=== PATIENT | female | born 1950 | race American Indian/Alaskan Native ===

== ENCOUNTER 2019-01-17 11:38 | Inpatient (IN) | payer MEDICARE ==
--- NOTE | 2019-01-17 11:48 | Emergency Department Report ---
Blank Doc - Documentation Documentation: 68-year-old female that presents with heart racing. Was sent by machine ii coremaker. This initial assessment/diagnostic orders/clinical plan/treatment(s) is/are subject to change based on patient's health status, clinical progression and re- assessment by fellow clinical providers in the ED. Further treatment and workup at subsequent clinical providers discretion. Patient/guardians urged not to elope from the ED as their condition may be serious if not clinically assessed and managed. Initial orders include: 1- Patient sent to [facility] for further evaluation and treatment 2- EKG 4- CXR 4- labs
--- NOTE | 2019-01-17 12:36 | Emergency Department Report ---
ED General Adult HPI - General Chief complaint: Arrhythmia/Palpitations Stated complaint: HEART RACING/DOC SENT Time Seen by Provider: 01/17/19 11:47 Source: patient Mode of arrival: Ambulatory Limitations: No Limitations - History of Present Illness Initial comments: 68-year-old female with history of hypertension, chronic kidney disease, diabetes, CVA presents to ED for elevated heart rate. Patient states she had a follow-up appointment with her agricultural research technician for worsening renal function, and was noted to have tachycardia when vital signs were done. Patient denies palpitations or sensation in her heart is racing. She denies any dizziness or lightheadedness, chest pain, shortness of breath. Denies any recent illness, fever, vomiting, diarrhea. 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 denies: chest pain, fever/chills, nausea/vomiting, shortness of breath, syncope, weakness - Related Data Home Medications Medication Instructions Recorded Confirmed Last Taken Aspirin EC 325 mg PO QDAY 11/08/14 02/16/16 11/12/14 Simvastatin (Nf) [Zocor TAB] 20 mg PO QHS 11/08/14 02/16/16 11/14/14 amLODIPine [Norvasc] 10 mg PO DAILY 11/08/14 02/16/16 11/15/14 metFORMIN XR [Glucophage XR] 500 mg PO BID 11/08/14 02/16/16 11/14/14 Furosemide 20 mg PO QDAY 02/16/16 02/16/16 Unknown Previous Rx's Medication Instructions Recorded Last Taken Type Carvedilol [Coreg] 25 mg PO BID #60 tablet 07/15/13 11/15/14 Rx Pantoprazole [Protonix TAB] 40 mg PO DAILY #30 tablet 07/15/13 11/14/14 Rx Furosemide [Lasix] 20 mg PO QDAY #30 tablet 02/16/16 Unknown Rx Potassium Chloride [K-Dur] 10 meq PO QDAY #30 tablet 02/16/16 Unknown Rx Allergies Allergy/AdvReac Type Severity Reaction Status Date / Time No Known Allergies Allergy Verified 05/23/13 22:50 ED Review of Systems ROS: Stated complaint: HEART RACING/DOC SENT Other details as noted in HPI Comment: All other systems reviewed and negative Constitutional: denies: chills, fever Respiratory: denies: shortness of breath Cardiovascular: denies: chest pain, palpitations Gastrointestinal: denies: abdominal pain, vomiting, diarrhea ED Past Medical Hx - Past Medical History Previous Medical History?: Yes Hx Hypertension: Yes (UNKNOWN) Hx CVA: Yes (2013) Hx Congestive Heart Failure: No Hx Diabetes: Yes Hx GERD: Yes Hx Asthma: No Hx COPD: No Hx HIV: No - Surgical History Past Surgical History?: Yes Additional Surgical History: eye surgery and partial hysterectomy - Social History Smoking Status: Never Smoker Substance Use Type: None - Medications Home Medications: Home Medications Medication Instructions Recorded Confirmed Last Taken Type Carvedilol [Coreg] 25 mg PO BID #60 tablet 07/15/13 02/16/16 11/15/14 Rx Pantoprazole [Protonix TAB] 40 mg PO DAILY #30 tablet 07/15/13 02/16/16 11/14/14 Rx Aspirin EC 325 mg PO QDAY 11/08/14 02/16/16 11/12/14 History Simvastatin (Nf) [Zocor TAB] 20 mg PO QHS 11/08/14 02/16/16 11/14/14 History amLODIPine [Norvasc] 10 mg PO DAILY 11/08/14 02/16/16 11/15/14 History metFORMIN XR [Glucophage XR] 500 mg PO BID 11/08/14 02/16/16 11/14/14 History Furosemide 20 mg PO QDAY 02/16/16 02/16/16 Unknown History Furosemide [Lasix] 20 mg PO QDAY #30 tablet 02/16/16 Unknown Rx Potassium Chloride [K-Dur] 10 meq PO QDAY #30 tablet 02/16/16 Unknown Rx ED Physical Exam - General Limitations: No Limitations General appearance: alert, in no apparent distress - Head Head exam: Present: atraumatic, normocephalic - Eye Eye exam: Present: normal appearance, PERRL, EOMI - ENT ENT exam: Present: mucous membranes moist - Neck Neck exam: Present: normal inspection - Respiratory Respiratory exam: Present: normal lung sounds bilaterally. Absent: respiratory distress - Cardiovascular Cardiovascular Exam: Present: normal rhythm, tachycardia - GI/Abdominal GI/Abdominal exam: Present: soft. Absent: distended, tenderness - Extremities Exam Extremities exam: Present: normal inspection - Neurological Exam Neurological exam: Present: alert, oriented X3 - Psychiatric Psychiatric exam: Present: normal affect, normal mood - Skin Skin exam: Present: warm, dry, intact, normal color ED Course Vital Signs 01/17/19 01/17/19 11:42 12:46 Temperature 98.3 F Pulse Rate 122 H 103 H Respiratory 18 15 Rate Blood Pressure 178/102 146/83 O2 Sat by Pulse 95 97 Oximetry - Reevaluation(s) Reevaluation #1: 01/17/19 13:50 HR currently 98. ED Medical Decision Making - Lab Data Result diagrams: 01/17/19 12:48 01/17/19 12:48 - EKG Data -: EKG Interpreted by Me EKG shows normal: sinus rhythm, axis, intervals, QRS complexes, ST-T waves Rate: tachycardia (rate 113) - EKG Data Interpretation: no acute changes - Medical Decision Making - sent to ER for tachycardia from agricultural research technician's office - EKG shows sinus tachycardia, no ST changes - HR currently improved without intervention - potassium of 5.6; treatment given for hyperkalemia - spoke w/ Dr Fernandez, aware of pt, will see in consult - will admit to hospitalist - Differential Diagnosis hyperthyroidism, arrythmia, Critical Care Time: Yes Critical care time in (mins) excluding proc time.: 35 Critical care attestation.: If time is entered above; I have spent that time in minutes in the direct care o f this critically ill patient, excluding procedure time. Critical Care Time: 35 minutes ED Disposition Clinical Impression: Hyperkalemia, Acute on chronic renal failure Disposition: -09 OP ADMIT IP TO THIS HOSP Is pt being admited?: Yes Condition: Stable Referrals: PRIMARY CARE, [Primary Care Provider] - 3-5 Days Time of Disposition: 14:31
--- NOTE | 2019-01-17 12:39 | XRay Report ---
CHEST PA AND LATERAL VIEWS INDICATION: Chest Pain. COMPARISON: None. FINDINGS: Support devices: None. Heart: Within normal limits. Lungs/Pleura: No acute pulmonary or pleural findings. There is mild elevation of the right diaphragm. IMPRESSION: 1. No significant abnormality. Signer Name: Sidney Sumner MD Signed: 01/17/2019 12:35 PM Workstation Name: [id number]
[2019-01-17 13:32] LABS: INR 0.99 (0.87-1.13)
[2019-01-17 13:33] LABS: Partial Thromboplastin Time 33.3 Sec. (24.2-36.6)
[2019-01-17 13:43] LABS: Basophils # (Auto) 0.1 K/mm3 (0.0-0.1); Basophils % (Auto) 0.5 % (0.0-1.8); Eosinophils # (Auto) 0.1 K/mm3 (0.0-0.4); Eosinophils % (Auto) 1.3 % (0.0-4.3); Hematocrit 32.7 % (30.3-42.9); Hemoglobin 10.9 gm/dl (10.1-14.3); Lymphocytes # (Auto) 2.2 K/mm3 (1.2-5.4); Mean Corpuscular HGB Conc 33 % (30-34); Mean Corpuscular Volume 91 fl (79-97); Monocytes # (Auto) 0.8 K/mm3 (0.0-0.8); Platelet Count 320 K/mm3 (140-440); Red Blood Count 3.62 M/mm3 (3.65-5.03); Red Cell Distribution Width 15.8 % (13.2-15.2)
[2019-01-17 14:05] LABS: Albumin 4.1 g/dL (3.9-5); Calcium 9.5 mg/dL (8.4-10.2)
[2019-01-17 14:14] LABS: Free T4 (Free Thyroxine) 1.17 ng/dL (0.76-1.46)
[2019-01-17] MEDS ORDERED: D50W (25GM) Syringe IV ONE (14:28)
[2019-01-17] MEDS ORDERED: HumuLIN R IV ONE (14:28)
[2019-01-17] MEDS ORDERED: PROVENTIL IH ONE (14:28)
[2019-01-17] MEDS ORDERED: CALCIUM CHLORIDE IV ONE (14:29)
--- NOTE | 2019-01-17 14:46 | History and Physical Report ---
History of Present Illness Chief complaint: Im feeling sick, and a little tired History of present illness: 68 YO Female with HTN, DM, CVA, Obesity, HLD, GERD presents to ED for evaluation. Pt states that she has been "feeling sick" over the past 3 days. Pt reports generalized weakness, fatigue and feeling like her heart is racing. Pt was seen by her endodontic assistant and found to have worsening renal function. Pt instructed to seek further care at [facility]. Pt transported to [facility] via private vehicle. Pt seen and evaluated in ED and found to have ADRIEN, Acidosis, and hyperkalemia. Pt admitted to medical floor. Nephrology consulted in ED. PT denies fever, chills, CP,Palpitations, NVD, trauma, dizziness or lightheadedness, shortness of breath, or recent ill contacts. Prior admission on 07/07/13 reviewed. All listed medication reconciled at time of admission. Past History Past Medical History: other (see hpi) Past Surgical History: hysterectomy, Other (Eye surgery) Social history: . denies: smoking, alcohol abuse, prescription drug abuse Family history: diabetes, hypertension Medications and Allergies Allergies Allergy/AdvReac Type Severity Reaction Status Date / Time No Known Allergies Allergy Verified 05/23/13 22:50 Home Medications Medication Instructions Recorded Confirmed Last Taken Type Carvedilol [Coreg] 25 mg PO BID #60 tablet 07/15/13 01/17/19 01/16/19 Rx Pantoprazole [Protonix TAB] 40 mg PO DAILY #30 tablet 07/15/13 01/17/19 01/16/19 Rx Aspirin EC 325 mg PO QDAY 11/08/14 01/17/19 01/16/19 History Simvastatin (Nf) [Zocor TAB] 20 mg PO QHS 11/08/14 01/17/19 01/16/19 History amLODIPine [Norvasc] 10 mg PO DAILY 11/08/14 01/17/19 01/16/19 History Furosemide [Lasix] 20 mg PO QDAY #30 tablet 02/16/16 01/17/19 01/16/19 Rx Insulin Detemir [Levemir VIAL] 40 unit SQ QHS 01/17/19 01/17/19 01/16/19 History Review of Systems Constitutional: weakness, no weight loss, no weight gain, no fever, no chills Ears, nose, mouth and throat: no ear pain, no ear discharge, no tinnitis, no decreased hearing, no nose pain, no nasal congestion Breasts: no change in shape, no swelling, no mass Cardiovascular: palpitations, no chest pain Respiratory: no cough, no cough with sputum, no excessive sputum, no shortness of breath Gastrointestinal: no abdominal pain, no nausea, no vomiting, no diarrhea, no constipation Genitourinary Female: no pelvic pain, no flank pain, no menorrhagia Rectal: no pain, no incontinence, no bleeding Musculoskeletal: no neck pain, no shooting arm pain, no low back pain Integumentary: no rash, no pruritis, no redness, no sores, no jaundice, no blisters Neurological: no transient paralysis, no paralysis, no parathesias, no numbness, no tingling, no seizures, no syncope Psychiatric: no anxiety, no change in sleep habits, no insomnia, no hypersomnia, no change in libido, no suicidal ideation Endocrine: no cold intolerance, no heat intolerance, no polyphagia, no excessive thirst, no polyuria, no nocturia Hematologic/Lymphatic: no easy bruising, no easy bleeding, no lymphadenopathy, no lymphedema Allergic/Immunologic: no allergic rhinitis, no wheezing, no persistent infections, no anaphylaxis Exam - Constitutional Vitals: Temp Pulse Resp BP Pulse Ox 98.3 F 103 H 15 146/83 97 01/17/19 11:42 01/17/19 12:46 01/17/19 12:46 01/17/19 12:46 01/17/19 12:46 General appearance: Present: mild distress, obese - EENT Eyes: Present: PERRL ENT: hearing intact, clear oral mucosa - Neck Neck: Present: supple, normal ROM - Respiratory Respiratory effort: normal Respiratory: bilateral: CTA - Cardiovascular Heart Sounds: Present: S1 & S2. Absent: rub, click - Extremities Extremities: pulses symmetrical, No edema Peripheral Pulses: within normal limits - Abdominal General gastrointestinal: Present: soft, non-tender, non-distended, normal bowel sounds Female genitourinary: Present: normal - Integumentary Integumentary: Present: clear, warm, dry - Musculoskeletal Musculoskeletal: generalized weakness - Psychiatric Psychiatric: appropriate mood/affect, intact judgment & insight - Neurologic Neurologic: CNII-XII intact, moves all extremities Results - Labs CBC & Chem 7: 01/17/19 12:48 01/17/19 12:48 Labs: Abnormal lab results 01/17/19 01/17/19 Range/Units 12:48 12:48 RBC 3.62 L (3.65-5.03) M/mm3 RDW 15.8 H (13.2-15.2) % Seg Neutrophils % 71.2 H (40.0-70.0) % Seg Neutrophils # 7.8 H (1.8-7.7) K/mm3 Potassium 5.6 H (3.6-5.0) mmol/L Carbon Dioxide 19 L (22-30) mmol/L BUN 45 H (7-17) mg/dL Creatinine 3.7 H (0.7-1.2) mg/dL Glucose 123 H (65-100) mg/dL Total Protein 8.7 H (6.3-8.2) g/dL Assessment and Plan - Patient Problems (1) ADRIEN (acute kidney injury) Current Visit: Yes Status: Acute Plan to address problem: Nephrology consulted in ED, monitor uop q shift, IVF resuscitation therapy, urine electrolytes, CMP, repeat bmp to monitor serum creatnine. (2) Acidosis Current Visit: Yes Status: Acute Plan to address problem: IVF resuscitation therapy, IV bicarbonate therapy, repeat bmp (3) Hyperkalemia Current Visit: Yes Status: Acute Plan to address problem: IVF resuscitation therapy, calcium chloride, Insulin, D50 (4) HTN (hypertension) Current Visit: Yes Status: Acute Qualifiers: Hypertension type: essential hypertension Qualified Code(s): I10 - Essential (primary) hypertension Plan to address problem: monitor bp q shift (5) HLD (hyperlipidemia) Current Visit: Yes Status: Acute Qualifiers: Hyperlipidemia type: mixed hyperlipidemia Qualified Code(s): E78.2 - Mixed hyperlipidemia Plan to address problem: statin therapy, supportive care. (6) Diabetes Current Visit: Yes Status: Acute Plan to address problem: ADA diet, insulin, accu check, hypoglycemia protocol (7) GERD (gastroesophageal reflux disease) Current Visit: Yes Status: Acute Qualifiers: Esophagitis presence: without esophagitis Qualified Code(s): K21.9 - Gastro-esophageal reflux disease without esophagitis Plan to address problem: PPI therapy, supportive care (8) DVT prophylaxis Current Visit: Yes Status: Acute Plan to address problem: SCD to BLE while in bed, Pt ambulatory
[2019-01-17] MEDS ORDERED: ZOFRAN IV PRN (14:48)
[2019-01-17] MEDS ORDERED: PROVENTIL IH PRN (14:48)
[2019-01-17] MEDS ORDERED: TYLENOL PO PRN (14:48)
[2019-01-17] MEDS ORDERED: SODIUM CHLORIDE FLUSH SYRINGE 10 ML IV PRN (14:48)
[2019-01-17] MEDS ORDERED: D50W (25GM) Syringe IV PRN (14:51)
[2019-01-17] MEDS: HumaLOG SUB-Q SCH ×2 (17:09→22:19)
[2019-01-17] MEDS ORDERED: HumaLOG SUB-Q SCH (18:00)
[2019-01-17] MEDS: COREG PO SCH (21:15)
[2019-01-17] MEDS: SODIUM CHLORIDE FLUSH SYRINGE 10 ML IV SCH (21:15)
[2019-01-17] MEDS: PRAVACHOL PO SCH (21:15)
[2019-01-17] MEDS ORDERED: NON-FORMULARY (Simvastatin (Nf) 20 MG) PO SCH (22:00)
[2019-01-17 22:02] LABS: Bilirubin,Urine NEG (Negative); Blood,Urine NEG (Negative); Color,Urine Colorless (Yellow); Urobilinogen,Urine < 2.0 mg/dL (<2.0)
[2019-01-17 22:49] LABS: Creatinine,Urine 32.6 mg/dL (0.1-20.0)
[2019-01-17] MEDS: NACL 0.45% 1000 ML 1,000 ML IV SCH (23:08)
[2019-01-18] MEDS: HumaLOG SUB-Q SCH ×4 (07:25→23:43)
[2019-01-18 08:59] LABS: Basophils % (Auto) 0.5 % (0.0-1.8); Eosinophils # (Auto) 0.2 K/mm3 (0.0-0.4); Eosinophils % (Auto) 2.2 % (0.0-4.3); Hemoglobin 10.3 gm/dl (10.1-14.3); Lymphocytes # (Auto) 2.3 K/mm3 (1.2-5.4); Mean Corpuscular HGB Conc 33 % (30-34); Mean Corpuscular Volume 91 fl (79-97); Monocytes # (Auto) 0.7 K/mm3 (0.0-0.8); Platelet Count 305 K/mm3 (140-440); Red Blood Count 3.42 M/mm3 (3.65-5.03); Red Cell Distribution Width 15.6 % (13.2-15.2)
[2019-01-18 09:24] LABS: Albumin 3.6 g/dL (3.9-5); Calcium 9.2 mg/dL (8.4-10.2)
[2019-01-18] MEDS ORDERED: KIONEX PO NR (09:43)
[2019-01-18] MEDS: ECOTRIN PO SCH (09:56)
[2019-01-18] MEDS: COREG PO SCH ×2 (09:56→21:47)
[2019-01-18] MEDS: SODIUM CHLORIDE FLUSH SYRINGE 10 ML IV SCH ×2 (09:57→21:47)
[2019-01-18] MEDS: PROTONIX PO SCH (09:57)
[2019-01-18] MEDS ORDERED: LASIX PO SCH (10:00)
[2019-01-18] MEDS ORDERED: NON-FORMULARY (Furosemide 20 MG) PO SCH (10:00)
[2019-01-18] MEDS ORDERED: K-DUR PO SCH (10:00)
[2019-01-18] MEDS ORDERED: AFLURIA QUAD 2019-2020 (3YR UP) IM ONE (12:00)
[2019-01-18] MEDS ORDERED: KIONEX PO ONE (12:04)
--- NOTE | 2019-01-18 12:06 | Consultation ---
History of Present Illness - Reason for Consult Consult date: 01/18/19 acute renal failure, chronic renal failure, hyperkalemia - History of Present Illness The patient is a 68 YO female who is well known to our service with history significant for Obesity, HTN, DM type 2, CVA, HFrEF, HLD, GERD and CKD stage 3 who presented to [facility] ED for evaluation of worsening kidney function. Her baseline creatinine is around 1.7 and the most recent labs showed creatinine of 3.6. She was seen in our office yesterday and her heart rate was 126/min. Patient was sent to the ER for further evaluation. She denies any N, V, D, abd pain, fever, chills, leg swelling, dizziness, cp, sob, cough, dysuria, h ematuria, NSAID intake or recent new medication. Patient was admitted with ADRIEN and hyperkalemia. Past History Past Medical History: diabetes, heart failure, hypertension, hyperlipidemia, renal failure, other (see hpi) Past Surgical History: hysterectomy, Other (Eye surgery) Social history: . denies: smoking, alcohol abuse, prescription drug abuse Family history: diabetes, hypertension Medications and Allergies Allergies Allergy/AdvReac Type Severity Reaction Status Date / Time No Known Allergies Allergy Verified 05/23/13 22:50 Home Medications Medication Instructions Recorded Confirmed Last Taken Type Carvedilol [Coreg] 25 mg PO BID #60 tablet 07/15/13 01/17/19 01/16/19 Rx Pantoprazole [Protonix TAB] 40 mg PO DAILY #30 tablet 07/15/13 01/17/19 01/16/19 Rx Aspirin EC 325 mg PO QDAY 11/08/14 01/17/19 01/16/19 History Simvastatin (Nf) [Zocor TAB] 20 mg PO QHS 11/08/14 01/17/19 01/16/19 History amLODIPine [Norvasc] 10 mg PO DAILY 11/08/14 01/17/19 01/16/19 History Furosemide [Lasix] 20 mg PO QDAY #30 tablet 02/16/16 01/17/19 01/16/19 Rx Insulin Detemir [Levemir VIAL] 40 unit SQ QHS 01/17/19 01/17/19 01/16/19 History Active Meds: Active Medications Acetaminophen (Tylenol) 650 mg PO Q4H PRN PRN Reason: Pain MILD(1-3)/Fever >100.5/RO Albuterol (Proventil) 2.5 mg IH Q4HRT PRN PRN Reason: Shortness Of Breath Amlodipine Besylate (Norvasc) 10 mg PO DAILY [facility] Last Admin: 01/18/19 09:56 Dose: 10 mg Documented by: Aspirin (Ecotrin) 325 mg PO QDAY [facility] Last Admin: 01/18/19 09:56 Dose: 325 mg Documented by: Carvedilol (Coreg) 25 mg PO BID [facility] Last Admin: 01/18/19 09:56 Dose: 25 mg Documented by: Dextrose (D50w (25gm) Syringe) 50 ml IV Q30MIN PRN PRN Reason: Hypoglycemia Furosemide (Lasix) 20 mg PO QAM [facility] Last Admin: 01/18/19 09:57 Dose: 20 mg Documented by: Sodium Chloride (Nacl 0.45% 1000 Ml) 1,000 mls @ 42 mls/hr IV DIRECT [facility] Last Admin: 01/17/19 23:08 Dose: 42 mls/hr Documented by: Insulin Human Lispro (Humalog) 0 unit SUB-Q ACHS [facility]; Protocol Last Admin: 01/18/19 07:25 Dose: Not Given Documented by: Ondansetron HCl (Zofran) 4 mg IV Q8H PRN PRN Reason: Nausea And Vomiting Pantoprazole Sodium (Protonix) 40 mg PO DAILY [facility] Last Admin: 01/18/19 09:57 Dose: 40 mg Documented by: Pneumococcal Polyvalent Vaccine (Pneumovax 23) 0.5 ml IM .ONCE ONE Stop: 01/18/19 13:01 Pravastatin Sodium (Pravachol) 40 mg PO QHS [facility] Last Admin: 01/17/19 21:15 Dose: 40 mg Documented by: Sodium Chloride (Sodium Chloride Flush Syringe 10 Ml) 10 ml IV BID [facility] Last Admin: 01/18/19 09:57 Dose: 10 ml Documented by: Sodium Chloride (Sodium Chloride Flush Syringe 10 Ml) 10 ml IV PRN PRN PRN Reason: LINE FLUSH Sodium Polystyrene Sulfonate (Kionex) 45 gm PO ONCE ONE Stop: 01/18/19 12:05 Review of Systems Constitutional: no weight loss, no weight gain, no fever, no chills, no anorexia, no fatigue, no weakness, no poor appetite Breasts: deferred Cardiovascular: high blood pressure, no chest pain, no orthopnea, no edema, no syncope, no lightheadedness, no shortness of breath, no leg edema Respiratory: no cough, no cough with sputum, no hemoptysis, no shortness of breath, no dyspnea on exertion, no sleep apnea, no home oxygen Gastrointestinal: no abdominal pain, no nausea, no vomiting, no diarrhea, no melena Genitourinary Female: no dysuria, no hematuria Rectal: no bleeding Musculoskeletal: no muscle weakness, no muscle cramps Integumentary: no rash, no wounds Neurological: no paralysis, no weakness, no convulsions, no aphasia, no change in speech, no change in mentation, no confusion, no memory loss Exam - Vital Signs Vital signs: Vital Signs Temp Pulse Resp BP Pulse Ox 98.3 F 122 H 18 178/102 95 01/17/19 11:42 01/17/19 11:42 01/17/19 11:42 01/17/19 11:42 01/17/19 11:42 - General Appearance General appearance: well-developed, well-nourished, appears stated age, other (no distress) EENT: ATNC, PERRL, mucous membranes moist, hearing intact, vision intact Neck: Present: neck supple, trachea midline Respiratory: Clear to Ascultation Heart: regular, S1S2, no murmurs Gastrointestinal: Present: normoactive bowel sounds. Absent: tenderness, di stended Integumentary: no rash, warm and dry Neurologic: no focal deficit, no asterixis, alert and oriented x3 Musculoskeletal: Present: other (no edema) Results - Lab Results 01/18/19 08:01 01/18/19 08:01 Most recent lab results Calcium 9.2 mg/dL (8.4-10.2) 01/18/19 08:01 Urine Creatinine 32.6 mg/dL (0.1-20.0) H 01/17/19 21:20 Urine Sodium 115 mmol/L 01/17/19 21:20 - Image Kidney/bladder ultrasound: pending Assessment and Plan 1. Acute kidney injury: ADRIEN superimposed on CKD stage 3. The etiology of ADRIEN is unclear. Suspect Vasomotor mediated / ATN. UA appears bland. Renal US pending. Renal function is about the same. Continue IV fluids. Monitor renal function. Avoid nephrotoxic agents. Meds dosage based on GFR. 2. FEN: Hyperkalemia, kayexalate ordered. Metabolic acidosis, monitor. Monitor lytes. 3. H/o HFrEF: Compensated. 4. Hypertension: BP is controlled. 5. DM type 2.
--- NOTE | 2019-01-18 12:31 | Progress Note ---
Assessment and Plan Assessment and plan: 68 YO Female with HTN, DM, CVA, Obesity, HLD, GERD presents to ED for evaluation. Pt states that she has been "feeling sick" over the past 3 days. Pt reports generalized weakness, fatigue and feeling like her heart is racing. Pt was seen by her marriage performer and found to have worsening renal function. Pt instructed to seek further care at [facility]. Pt transported to [facility] via private vehicle. Pt seen and evaluated in ED and found to have ADRIEN, Acidosis, and hyperkalemia. Pt admitted to medical floor. Nephrology consulted in ED. PT denies fever, chills, CP,Palpitations, NVD, trauma, dizziness or lightheaded ness, shortness of breath, or recent ill contacts. Prior admission on 07/07/13 reviewed. All listed medication reconciled at time of admission. (1) acute on chronic renal failure - Nephrology consulted we will follow recommendations - IV hydration - We'll follow BMP (2) Acidosis - Continue IV fluids, high carbon monitor BMP (3) Hyperkalemia - Treated was hyperkalemia cocktail in the ED - This morning potassium was high and I give her Kayexalate (4) HTN (hypertension) - Blood pressure is controlled - Continue current medication regimen (5) HLD (hyperlipidemia) - statin therapy (6) Diabetes ADA diet, insulin, accu check, hypoglycemia protocol (7) GERD (gastroesophageal reflux disease) PPI therapy, supportive care (8) DVT prophylaxis SCD to BLE while in bed, Pt ambulatory History Interval history: Patient was seen in antibiotic this morning, patient said she is feeling well. No new complaints. Hospitalist Physical - Physical exam Narrative exam: Not in cardiopulmonary distress. The patient appeared well nourished and normally developed. Vital signs as documented. Head exam is unremarkable. No scleral icterus . Neck is without jugular venous distension, thyromegaly, or carotid bruits. Lungs are clear to auscultation. Cardiac exam reveals regular rate and Rhythm. Abdominal exam reveals normal bowel sounds, no masses, no organomegaly and no aortic enlargement. Extremities are nonedematous and both femoral and pedal pulses are normal. BILINGUAL SALES ASSISTANT: Alert and oriented 3. No focal weakness. - Constitutional Vitals: Temp Pulse Resp BP Pulse Ox 98.4 F 90 20 140/75 96 01/18/19 07:24 01/18/19 10:00 01/18/19 07:24 01/18/19 09:56 01/18/19 07:24 General appearance: Present: mild distress, obese Results - Labs CBC & Chem 7: 01/18/19 08:01 01/18/19 08:01 Labs: Laboratory Last Values WBC 10.1 K/mm3 (4.5-11.0) 01/18/19 08:01 RBC 3.42 M/mm3 (3.65-5.03) L 01/18/19 08:01 Hgb 10.3 gm/dl (10.1-14.3) 01/18/19 08:01 Hct 31.0 % (30.3-42.9) 01/18/19 08:01 MCV 91 fl (79-97) 01/18/19 08:01 MCH 30 pg (28-32) 01/18/19 08:01 MCHC 33 % (30-34) 01/18/19 08:01 RDW 15.6 % (13.2-15.2) H 01/18/19 08:01 Plt Count 305 K/mm3 (140-440) 01/18/19 08:01 Lymph % (Auto) 23.0 % (13.4-35.0) 01/18/19 08:01 [place] % (Auto) 7.0 % (0.0-7.3) 01/18/19 08:01 Eos % (Auto) 2.2 % (0.0-4.3) 01/18/19 08:01 Baso % (Auto) 0.5 % (0.0-1.8) 01/18/19 08:01 Lymph # 2.3 K/mm3 (1.2-5.4) 01/18/19 08:01 [place] # 0.7 K/mm3 (0.0-0.8) 01/18/19 08:01 Eos # 0.2 K/mm3 (0.0-0.4) 01/18/19 08:01 Baso # 0.0 K/mm3 (0.0-0.1) 01/18/19 08:01 Seg Neutrophils % 67.3 % (40.0-70.0) 01/18/19 08:01 Seg Neutrophils # 6.8 K/mm3 (1.8-7.7) 01/18/19 08:01 PT 12.8 Sec. (12.2-14.9) 01/17/19 12:48 INR 0.99 (0.87-1.13) 01/17/19 12:48 APTT 33.3 Sec. (24.2-36.6) 01/17/19 12:48 Sodium 136 mmol/L (137-145) L 01/18/19 08:01 Potassium 5.7 mmol/L (3.6-5.0) H 01/18/19 08:01 Chloride 102.2 mmol/L (98-107) 01/18/19 08:01 Carbon Dioxide 19 mmol/L (22-30) L 01/18/19 08:01 Anion Gap 21 mmol/L 01/18/19 08:01 BUN 44 mg/dL (7-17) H 01/18/19 08:01 Creatinine 3.5 mg/dL (0.7-1.2) H 01/18/19 08:01 Estimated GFR 16 ml/min 01/18/19 08:01 BUN/Creatinine Ratio 13 % 01/18/19 08:01 Glucose 132 mg/dL (65-100) H 01/18/19 08:01 POC Glucose 230 (70-105) H 01/18/19 11:19 Calcium 9.2 mg/dL (8.4-10.2) 01/18/19 08:01 Total Bilirubin 0.30 mg/dL (0.1-1.2) 01/18/19 08:01 AST 12 units/L (5-40) 01/18/19 08:01 ALT 8 units/L (7-56) 01/18/19 08:01 Alkaline Phosphatase 92 units/L (35-129) 01/18/19 08:01 Troponin T < 0.010 ng/mL (0.00-0.029) 01/17/19 14:54 Total Protein 7.7 g/dL (6.3-8.2) 01/18/19 08:01 Albumin 3.6 g/dL (3.9-5) L 01/18/19 08:01 Albumin/Globulin Ratio 0.9 % 01/18/19 08:01 TSH 1.440 mlU/mL (0.270-4.200) 01/17/19 12:48 Free T4 1.17 ng/dL (0.76-1.46) 01/17/19 12:48 Urine Color Colorless (Yellow) 01/17/19 21:20 Urine Turbidity Clear (Clear) 01/17/19 21:20 Urine pH 7.0 (5.0-7.0) 01/17/19 21:20 Ur Specific [place] 1.008 (1.003-1.030) 01/17/19 21:20 Urine Protein 100 mg/dl mg/dL (Negative) 01/17/19 21:20 Urine Glucose (UA) Neg mg/dL (Negative) 01/17/19 21:20 Urine Ketones Neg mg/dL (Negative) 01/17/19 21:20 Urine Blood Neg (Negative) 01/17/19 21:20 Urine Nitrite Neg (Negative) 01/17/19 21:20 Urine Bilirubin Neg (Negative) 01/17/19 21:20 Urine Urobilinogen < 2.0 mg/dL (<2.0) 01/17/19 21:20 Ur Leukocyte Esterase Neg (Negative) 01/17/19 21:20 Urine WBC (Auto) 1.0 /HPF (0.0-6.0) 01/17/19 21:20 Urine RBC (Auto) 1.0 /HPF (0.0-6.0) 01/17/19 21:20 Urine Eosinophils None seen (None Seen) 01/17/19 21:20 Urine Creatinine 32.6 mg/dL (0.1-20.0) H 01/17/19 21:20 Urine Sodium 115 mmol/L 01/17/19 21:20 Active Medications - Current Medications Current Medications: Generic Name Dose Route Start Last Admin Trade Name Freq PRN Reason Stop Dose Admin Acetaminophen 650 mg 01/17/19 14:48 Tylenol PO Q4H PRN Pain MILD(1-3)/Fever >100.5/RO Albuterol 2.5 mg 01/17/19 14:48 Proventil IH Q4HRT PRN Shortness Of Breath Amlodipine Besylate 10 mg 01/18/19 10:00 01/18/19 09:56 Norvasc PO 10 mg DAILY MUNIRA Administration Aspirin 325 mg 01/18/19 10:00 01/18/19 09:56 Ecotrin PO 325 mg QDAY MUNIRA Administration Carvedilol 25 mg 01/17/19 22:00 01/18/19 09:56 Coreg PO 25 mg BID MUNIRA Administration Dextrose 50 ml 01/17/19 14:51 D50w (25gm) Syringe IV Q30MIN PRN Hypoglycemia Furosemide 20 mg 01/18/19 10:00 01/18/19 09:57 Lasix PO 20 mg QAM MUNIRA Administration Sodium Chloride 1,000 mls @ 42 mls/hr 01/17/19 15:00 01/17/19 23:08 Nacl 0.45% 1000 Ml IV 42 mls/hr DIRECT MUNIRA Administration Insulin Human Lispro 0 unit 01/17/19 18:00 01/18/19 12:04 Humalog SUB-Q 3 unit ACHS MUNIRA Administration Protocol Ondansetron HCl 4 mg 01/17/19 14:48 Zofran IV Q8H PRN Nausea And Vomiting Pantoprazole Sodium 40 mg 01/18/19 10:00 01/18/19 09:57 Protonix PO 40 mg DAILY MUNIRA Administration Pneumococcal Polyvalent Vaccine 0.5 ml 01/18/19 13:00 01/18/19 12:04 Pneumovax 23 IM 01/18/19 13:01 0.5 ml .ONCE ONE Administration Pravastatin Sodium 40 mg 01/17/19 22:00 01/17/19 21:15 Pravachol PO 40 mg QHS MUNIRA Administration Sodium Chloride 10 ml 01/17/19 22:00 01/18/19 09:57 Sodium Chloride Flush Syringe 10 Ml IV 10 ml BID MUNIRA Administration Sodium Chloride 10 ml 01/17/19 14:48 Sodium Chloride Flush Syringe 10 Ml IV PRN PRN LINE FLUSH Sodium Polystyrene Sulfonate 45 gm 01/18/19 12:04 Kionex PO 01/18/19 12:05 ONCE ONE
[2019-01-18] MEDS ORDERED: PNEUMOVAX 23 IM ONE (13:00)
[2019-01-18 16:19] LABS: Calcium 9.3 mg/dL (8.4-10.2)
--- NOTE | 2019-01-18 16:40 | Ultrasound Report ---
Renal ultrasound. 01/18/2019. HISTORY: Acute renal failure. FINDINGS: Right kidney measures 9.3 cm. Left kidney measures 10.4 cm. The cortex measures 1.2 cm bila terally. Echogenicity is slightly increased. Small nonobstructing stones are seen bilaterally. Negative for mass or obstruction. The bladder is nearly decompressed post void. IMPRESSION: 1. Mild cortical thinning and increased echogenicity. 2. Small nonobstructing renal stones bilaterally. 3. Mild post void residual. Signer Name: Ty Brown MD Signed: 01/18/2019 4:36 PM Workstation Name: [id number]
[2019-01-18] MEDS: PRAVACHOL PO SCH (21:47)
[2019-01-18] MEDS: NACL 0.45% 1000 ML 1,000 ML IV SCH (23:46)
[2019-01-19 06:39] LABS: Calcium 8.4 mg/dL (8.4-10.2)
[2019-01-19] MEDS: HumaLOG SUB-Q SCH ×4 (07:44→23:25)
[2019-01-19] MEDS: PROTONIX PO SCH (09:48)
[2019-01-19] MEDS: ECOTRIN PO SCH (09:48)
[2019-01-19] MEDS: COREG PO SCH ×2 (09:48→23:24)
[2019-01-19] MEDS: SODIUM CHLORIDE FLUSH SYRINGE 10 ML IV SCH ×2 (09:48→23:25)
[2019-01-19] MEDS ORDERED: ROBITUSSIN PO PRN (10:05)
[2019-01-19] MEDS ORDERED: ZITHROMAX PO SCH (11:00)
--- NOTE | 2019-01-19 11:26 | Consultation ---
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 Initial labs shows a creatinine at 3.5. Potassium of 5.7. A cardiac consultation has been requested for SVT. Patient denies chest pain, she denies shortness of breath and has no palpitations. ECG is sinus tachycardia. No evidence of SVT or arrhythmias seen on telemetry. Latest cardiac workup done at this hospital was an echocardiogram in 2013 that reports a left ventricular ejection fraction of 45%. Past History Social history: . denies: smoking, alcohol abuse, prescription drug abuse Family history: diabetes, hypertension Medications and Allergies Allergies Allergy/AdvReac Type Severity Reaction Status Date / Time No Known Allergies Allergy Verified 05/23/13 22:50 Home Medications Medication Instructions Recorded Confirmed Last Taken Type Carvedilol [Coreg] 25 mg PO BID #60 tablet 07/15/13 01/17/19 01/16/19 Rx Pantoprazole [Protonix TAB] 40 mg PO DAILY #30 tablet 07/15/13 01/17/19 01/16/19 Rx Aspirin EC 325 mg PO QDAY 11/08/14 01/17/19 01/16/19 History Simvastatin (Nf) [Zocor TAB] 20 mg PO QHS 11/08/14 01/17/19 01/16/19 History amLODIPine [Norvasc] 10 mg PO DAILY 11/08/14 01/17/19 01/16/19 History Furosemide [Lasix] 20 mg PO QDAY #30 tablet 02/16/16 01/17/19 01/16/19 Rx Insulin Detemir [Levemir VIAL] 40 unit SQ QHS 01/17/19 01/17/19 01/16/19 History Active Meds: Active Medications Acetaminophen (Tylenol) 650 mg PO Q4H PRN PRN Reason: Pain MILD(1-3)/Fever >100.5/RO Albuterol (Proventil) 2.5 mg IH Q4HRT PRN PRN Reason: Shortness Of Breath Amlodipine Besylate (Norvasc) 10 mg PO DAILY MUNIRA Last Admin: 01/19/19 09:47 Dose: Not Given Documented by: Aspirin (Ecotrin) 325 mg PO QDAY [facility] Last Admin: 01/19/19 09:48 Dose: 325 mg Documented by: Azithromycin (Zithromax) 500 mg PO QDAY [facility] Carvedilol (Coreg) 25 mg PO BID [facility] Last Admin: 01/19/19 09:48 Dose: 25 mg Documented by: Dextrose (D50w (25gm) Syringe) 50 ml IV Q30MIN PRN PRN Reason: Hypoglycemia Furosemide (Lasix) 20 mg PO QDAY [facility] Guaifenesin (Robitussin) 200 mg PO Q4H PRN PRN Reason: Cough Sodium Chloride (Nacl 0.45% 1000 Ml) 1,000 mls @ 100 mls/hr IV DIRECT [facility] Last Admin: 01/18/19 23:46 Dose: 42 mls/hr Documented by: Insulin Human Lispro (Humalog) 0 unit SUB-Q ACHS [facility]; Protocol Last Admin: 01/19/19 07:44 Dose: Not Given Documented by: Ondansetron HCl (Zofran) 4 mg IV Q8H PRN PRN Reason: Nausea And Vomiting Pantoprazole Sodium (Protonix) 40 mg PO DAILY [facility] Last Admin: 01/19/19 09:48 Dose: 40 mg Documented by: Pravastatin Sodium (Pravachol) 40 mg PO QHS [facility] Last Admin: 01/18/19 21:47 Dose: 40 mg Documented by: Sodium Chloride (Sodium Chloride Flush Syringe 10 Ml) 10 ml IV BID [facility] Last Admin: 01/19/19 09:48 Dose: Not Given Documented by: Sodium Chloride (Sodium Chloride Flush Syringe 10 Ml) 10 ml IV PRN PRN PRN Reason: LINE FLUSH Physical Examination Vital Signs Temp Pulse Resp BP Pulse Ox 98.3 F 122 H 18 178/102 95 01/17/19 11:42 01/17/19 11:42 01/17/19 11:42 01/17/19 11:42 01/17/19 11:42 General appearance: no acute distress HEENT: Positive: PERRL Neck: Positive: trachea midline Cardiac: Positive: Tachycardia Lungs: Positive: Decreased Breath Sounds Neuro: Positive: Grossly Intact Results 01/18/19 08:01 01/19/19 05:43 Comprehensive Metabolic Panel 01/18/19 01/19/19 Range/Units 15:40 05:43 Sodium 140 137 (137-145) mmol/L Potassium 5.3 H 4.2 D (3.6-5.0) mmol/L Chloride 104.8 102.1 (98-107) mmol/L Carbon Dioxide 18 L 21 L (22-30) mmol/L BUN 44 H 40 H (7-17) mg/dL Creatinine 3.7 H 3.5 H (0.7-1.2) mg/dL Glucose 141 H 169 H (65-100) mg/dL Calcium 9.3 8.4 (8.4-10.2) mg/dL Assessment and Plan Chronic kidney disease Diabetes Hypertension No evidence of SVT or arrhythmias seen. No cardiac management indicated for asymptomatic sinus tachycardia.
[2019-01-19] MEDS: ZITHROMAX PO SCH (13:00)
[2019-01-19] MEDS ORDERED: LASIX PO SCH (13:00)
[2019-01-19] MEDS ORDERED: MAGNESIUM SULFATE 2GM/50ML 2 GM/50 ML BAG IV NR (14:00)
--- NOTE | 2019-01-19 14:52 | Progress Note ---
Assessment and Plan Assessment and plan: 68 YO Female with HTN, DM, CVA, Obesity, HLD, GERD presents to ED for evaluation. Pt states that she has been "feeling sick" over the past 3 days. Pt reports generalized weakness, fatigue and feeling like her heart is racing. Pt was seen by her comb fixer and found to have worsening renal function. Pt instructed to seek further care at [facility]. Pt transported to [facility] via private vehicle. Pt seen and evaluated in ED and found to have ADRIEN, Acidosis, and hyperkalemia. Pt admitted to medical floor. Nephrology consulted in ED. PT denies fever, chills, CP,Palpitations, NVD, trauma, dizziness or lightheaded ness, shortness of breath, or recent ill contacts. Prior admission on 07/07/13 reviewed. All listed medication reconciled at time of admission. (1) acute on chronic renal failure - Nephrology consulted we will follow recommendations - IV hydration - still Cr is 3.5 (2) Acidosis - resolved (3) Hyperkalemia - Treated was hyperkalemia cocktail in the ED - Given Kayexalate - Corrected (4) HTN (hypertension) - Blood pressure is controlled - Continue current medication regimen (5) HLD (hyperlipidemia) - statin therapy (6) Diabetes ADA diet, insulin, accu check, hypoglycemia protocol (7) GERD (gastroesophageal reflux disease) PPI therapy, supportive care (8) DVT prophylaxis SCD to BLE while in bed, Pt ambulatory Fever and cough - CXR is normal - I empirically put on zithromax, cough syrup Disposition; discussed with nephrology and wants to see the renal function tomorrow. History Interval history: Patient was seen and evaluated this morning, patient said she is feeling well. patient said she has cough and had episode of fever. Hospitalist Physical - Physical exam Narrative exam: Not in cardiopulmonary distress. The patient appeared well nourished and normally developed. Vital signs as documented. Head exam is unremarkable. No scleral icterus . Neck is without jugular venous distension, thyromegaly, or carotid bruits. Lungs are clear to auscultation. Cardiac exam reveals regular rate and Rhythm. Abdominal exam reveals normal bowel sounds, no masses, no organomegaly and no aortic enlargement. Extremities are nonedematous and both femoral and pedal pulses are normal. INSIDE SALES ACCOUNT EXECUTIVE: Alert and oriented 3. No focal weakness. - Constitutional Vitals: Temp Pulse Resp BP Pulse Ox 99.0 F 94 H 18 95/52 98 01/19/19 13:42 01/19/19 13:42 01/19/19 13:42 01/19/19 13:41 01/19/19 13:42 General appearance: Present: no acute distress Results - Labs CBC & Chem 7: 01/18/19 08:01 01/19/19 05:43 Labs: Laboratory Last Values WBC 10.1 K/mm3 (4.5-11.0) 01/18/19 08:01 RBC 3.42 M/mm3 (3.65-5.03) L 01/18/19 08:01 Hgb 10.3 gm/dl (10.1-14.3) 01/18/19 08:01 Hct 31.0 % (30.3-42.9) 01/18/19 08:01 MCV 91 fl (79-97) 01/18/19 08:01 MCH 30 pg (28-32) 01/18/19 08:01 MCHC 33 % (30-34) 01/18/19 08:01 RDW 15.6 % (13.2-15.2) H 01/18/19 08:01 Plt Count 305 K/mm3 (140-440) 01/18/19 08:01 Lymph % (Auto) 23.0 % (13.4-35.0) 01/18/19 08:01 [place] % (Auto) 7.0 % (0.0-7.3) 01/18/19 08:01 Eos % (Auto) 2.2 % (0.0-4.3) 01/18/19 08:01 Baso % (Auto) 0.5 % (0.0-1.8) 01/18/19 08:01 Lymph # 2.3 K/mm3 (1.2-5.4) 01/18/19 08:01 [place] # 0.7 K/mm3 (0.0-0.8) 01/18/19 08:01 Eos # 0.2 K/mm3 (0.0-0.4) 01/18/19 08:01 Baso # 0.0 K/mm3 (0.0-0.1) 01/18/19 08:01 Seg Neutrophils % 67.3 % (40.0-70.0) 01/18/19 08:01 Seg Neutrophils # 6.8 K/mm3 (1.8-7.7) 01/18/19 08:01 PT 12.8 Sec. (12.2-14.9) 01/17/19 12:48 INR 0.99 (0.87-1.13) 01/17/19 12:48 APTT 33.3 Sec. (24.2-36.6) 01/17/19 12:48 Sodium 137 mmol/L (137-145) 01/19/19 05:43 Potassium 4.2 mmol/L (3.6-5.0) D 01/19/19 05:43 Chloride 102.1 mmol/L (98-107) 01/19/19 05:43 Carbon Dioxide 21 mmol/L (22-30) L 01/19/19 05:43 Anion Gap 18 mmol/L 01/19/19 05:43 BUN 40 mg/dL (7-17) H 01/19/19 05:43 Creatinine 3.5 mg/dL (0.7-1.2) H 01/19/19 05:43 Estimated GFR 16 ml/min 01/19/19 05:43 BUN/Creatinine Ratio 11 % 01/19/19 05:43 Glucose 169 mg/dL (65-100) H 01/19/19 05:43 POC Glucose 189 (70-105) H 01/19/19 11:38 Calcium 8.4 mg/dL (8.4-10.2) 01/19/19 05:43 Phosphorus 4.20 mg/dL (2.5-4.5) 01/19/19 05:43 Magnesium 1.60 mg/dL (1.7-2.3) L 01/19/19 05:43 Total Bilirubin 0.30 mg/dL (0.1-1.2) 01/18/19 08:01 AST 12 units/L (5-40) 01/18/19 08:01 ALT 8 units/L (7-56) 01/18/19 08:01 Alkaline Phosphatase 92 units/L (35-129) 01/18/19 08:01 Total Creatine Kinase 222 units/L (30-135) H 01/19/19 05:43 Troponin T < 0.010 ng/mL (0.00-0.029) 01/17/19 14:54 Total Protein 7.7 g/dL (6.3-8.2) 01/18/19 08:01 Albumin 3.6 g/dL (3.9-5) L 01/18/19 08:01 Albumin/Globulin Ratio 0.9 % 01/18/19 08:01 TSH 1.440 mlU/mL (0.270-4.200) 01/17/19 12:48 Free T4 1.17 ng/dL (0.76-1.46) 01/17/19 12:48 Urine Color Colorless (Yellow) 01/17/19 21:20 Urine Turbidity Clear (Clear) 01/17/19 21:20 Urine pH 7.0 (5.0-7.0) 01/17/19 21:20 Ur Specific [place] 1.008 (1.003-1.030) 01/17/19 21:20 Urine Protein 100 mg/dl mg/dL (Negative) 01/17/19 21:20 Urine Glucose (UA) Neg mg/dL (Negative) 01/17/19 21:20 Urine Ketones Neg mg/dL (Negative) 01/17/19 21:20 Urine Blood Neg (Negative) 01/17/19 21:20 Urine Nitrite Neg (Negative) 01/17/19 21:20 Urine Bilirubin Neg (Negative) 01/17/19 21:20 Urine Urobilinogen < 2.0 mg/dL (<2.0) 01/17/19 21:20 Ur Leukocyte Esterase Neg (Negative) 01/17/19 21:20 Urine WBC (Auto) 1.0 /HPF (0.0-6.0) 01/17/19 21:20 Urine RBC (Auto) 1.0 /HPF (0.0-6.0) 01/17/19 21:20 Urine Eosinophils None seen (None Seen) 01/17/19 21:20 Urine Creatinine 32.6 mg/dL (0.1-20.0) H 01/17/19 21:20 Urine Sodium 115 mmol/L 01/17/19 21:20 Active Medications - Current Medications Current Medications: Generic Name Dose Route Start Last Admin Trade Name Freq PRN Reason Stop Dose Admin Acetaminophen 650 mg 01/17/19 14:48 Tylenol PO Q4H PRN Pain MILD(1-3)/Fever >100.5/RO Albuterol 2.5 mg 01/17/19 14:48 Proventil IH Q4HRT PRN Shortness Of Breath Amlodipine Besylate 10 mg 01/18/19 10:00 01/19/19 09:47 Norvasc PO Not Given DAILY MUNIRA Aspirin 325 mg 01/18/19 10:00 01/19/19 09:48 Ecotrin PO 325 mg QDAY MUNIRA Administration Azithromycin 500 mg 01/19/19 14:00 01/19/19 13:00 Zithromax PO 500 mg Q24HR MUNIRA Administration Carvedilol 25 mg 01/17/19 22:00 01/19/19 09:48 Coreg PO 25 mg BID MUNIRA Administration Dextrose 50 ml 01/17/19 14:51 D50w (25gm) Syringe IV Q30MIN PRN Hypoglycemia Furosemide 20 mg 01/19/19 13:00 01/19/19 12:58 Lasix PO 20 mg QDAY MUNIRA Administration Guaifenesin 200 mg 01/19/19 10:05 Robitussin PO Q4H PRN Cough Sodium Chloride 1,000 mls @ 100 mls/hr 01/17/19 15:00 01/18/19 23:46 Nacl 0.45% 1000 Ml IV 42 mls/hr DIRECT MUNIRA Administration Magnesium Sulfate 2 gm in 50 mls @ 25 mls/hr 01/19/19 14:00 Magnesium Sulfate 2gm/50ml IV 01/19/19 18:00 ONCE NR Insulin Human Lispro 0 unit 01/17/19 18:00 01/19/19 11:58 Humalog SUB-Q 2 unit ACHS MUNIRA Administration Protocol Ondansetron HCl 4 mg 01/17/19 14:48 Zofran IV Q8H PRN Nausea And Vomiting Pantoprazole Sodium 40 mg 01/18/19 10:00 01/19/19 09:48 Protonix PO 40 mg DAILY MUNIRA Administration Pravastatin Sodium 40 mg 01/17/19 22:00 01/18/19 21:47 Pravachol PO 40 mg QHS MUNIRA Administration Sodium Chloride 10 ml 01/17/19 22:00 01/19/19 09:48 Sodium Chloride Flush Syringe 10 Ml IV Not Given BID MUNIRA Sodium Chloride 10 ml 01/17/19 14:48 Sodium Chloride Flush Syringe 10 Ml IV PRN PRN LINE FLUSH Nutrition/Malnutrition Assess - Dietary Evaluation Nutrition/Malnutrition Findings: Nutrition Notes Start: 01/19/19 09:43 Freq: Status: Active Protocol: Document 01/19/19 09:43 AP (Rec: 01/19/19 10:26 AP [id number]) Co-Sign 01/19/19 09:43 LM Nutrition Notes Need for Assessment generated from: functional director Initial or Follow up Assessment Current Diagnosis CKD(stage I-IV),Diabetes, Hypertension,Hyperlipidemia Other Pertinent Diagnosis GERD, CVA Current Diet Renal Labs/Tests Reviewed Pertinent Medications Reviewed Height 5 ft 3 in Weight 78.6 kg [place] Body Weight (kg) 52.27 BMI 30.7 Subjective/Other Information Pt tech stated the pt had specific dietary needs and had questions about her current hospital diet. Visited pt who stated she does not want pork or beef and there was too much salt on the eggs and oatmeal and therefore ate none of her bfast tray. Offered ONS, pt stated she would like that better. Burn Absent Trauma Absent Minimum of two criteria No #1 Nutrition Diagnosis Inadequate oral intake Etiology Pt states she does not like the food instay. As Evidenced by Signs and Symptoms Pt consumed 0% of bfast tray. Is patient on ventilator? No Is Patient Ambulatory and/or Out of Bed Yes REE-([facility]-ambulatory/OOB) [ 1670.669 [id number]] Calculation Used for Recommendations [facility] Additional Notes PRO needs:52-59g/day (0.8-0.9g /kg Adbw 65kg) Fluid: 1ml/kcal or per MD Nutrition Intervention Change Diet Order: Continue renal/consistent CHO diet. Nutrition Support: Glucerna Butter Pecan once a day Kcal 425 Protein (gm) 19 Goal #1 Pt meet >80% kcal/PRO needs via PO/ONS. Anticipated Discharge Needs: Consistent CHO/Renal Follow-Up By: 01/20/19 Additional Comments F/U with pt to assess need for additional ONS, or if pt is consuming her tray.
--- NOTE | 2019-01-19 17:58 | Progress Note ---
Assessment and Plan 1. Acute kidney injury: ADRIEN superimposed on CKD stage 3. The etiology of ADRIEN is unclear. Suspect Vasomotor mediated / ATN. UA appears bland. Renal US negative for hydronephrosis. Renal function is about the same. Continue IV fluids. Monitor renal function. Avoid nephrotoxic agents. Meds dosage based on GFR. D/w patient about Kidney biopsy. She is agreeable for the procedure. Pt is on ASA, will have to get it done as outpatient. 2. FEN: Hyperkalemia, improved. Metabolic acidosis, improving. Replete Mg. Monitor lytes. 3. H/o HFrEF: Compensated. 4. Hypertension: BP is controlled. 5. DM type 2. Subjective Date of service: 01/19/19 Interval history: Patient was seen and examined at the bedside. Doing ok. Objective - Vital Signs Vital signs: Vital Signs - 12hr 01/19/19 01/19/19 01/19/19 07:28 09:47 10:00 Temperature 99.3 F Pulse Rate 116 H 102 H 96 H Pulse Rate [ 96 H Right Radial] Respiratory 18 20 Rate Blood Pressure 109/66 116/63 O2 Sat by Pulse 95 95 Oximetry 01/19/19 01/19/19 13:41 13:42 Temperature 99.0 F Pulse Rate 78 94 H Pulse Rate [ Right Radial] Respiratory 18 Rate Blood Pressure 95/52 O2 Sat by Pulse 78 L 98 Oximetry - Lab 01/18/19 08:01 01/19/19 05:43 Most recent lab results Calcium 8.4 mg/dL (8.4-10.2) 01/19/19 05:43 Phosphorus 4.20 mg/dL (2.5-4.5) 01/19/19 05:43 Magnesium 1.60 mg/dL (1.7-2.3) L 01/19/19 05:43 Urine Creatinine 32.6 mg/dL (0.1-20.0) H 01/17/19 21:20 Urine Sodium 115 mmol/L 01/17/19 21:20 Medications & Allergies - Medications Allergies/Adverse Reactions: Allergies No Known Allergies Allergy (Verified 05/23/13 22:50) Home Medications: Home Medications Medication Instructions Recorded Confirmed Last Taken Type Carvedilol [Coreg] 25 mg PO BID #60 tablet 07/15/13 01/17/19 01/16/19 Rx Pantoprazole [Protonix TAB] 40 mg PO DAILY #30 tablet 07/15/13 01/17/19 01/16/19 Rx Aspirin EC 325 mg PO QDAY 11/08/14 01/17/19 01/16/19 History Simvastatin (Nf) [Zocor TAB] 20 mg PO QHS 11/08/14 01/17/19 01/16/19 History amLODIPine 10 mg PO DAILY 11/08/14 01/17/19 01/16/19 History Furosemide [Lasix] 20 mg PO QDAY #30 tablet 02/16/16 01/17/19 01/16/19 Rx Insulin Detemir [Levemir VIAL] 40 unit SQ QHS 01/17/19 01/17/19 01/16/19 History Active Medications: Generic Name Dose Route Start Last Admin Trade Name Freq PRN Reason Stop Dose Admin Acetaminophen 650 mg 01/17/19 14:48 Tylenol PO Q4H PRN Pain MILD(1-3)/Fever >100.5/RO Albuterol 2.5 mg 01/17/19 14:48 Proventil IH Q4HRT PRN Shortness Of Breath Amlodipine Besylate 10 mg 01/18/19 10:00 01/19/19 09:47 Norvasc PO Not Given DAILY MUNIRA Aspirin 325 mg 01/18/19 10:00 01/19/19 09:48 Ecotrin PO 325 mg QDAY MUNIRA Administration Azithromycin 500 mg 01/19/19 14:00 01/19/19 13:00 Zithromax PO 500 mg Q24HR MUNIRA Administration Carvedilol 25 mg 01/17/19 22:00 01/19/19 09:48 Coreg PO 25 mg BID MUNIRA Administration Dextrose 50 ml 01/17/19 14:51 D50w (25gm) Syringe IV Q30MIN PRN Hypoglycemia Furosemide 20 mg 01/19/19 13:00 01/19/19 12:58 Lasix PO 20 mg QDAY MUNIRA Administration Guaifenesin 200 mg 01/19/19 10:05 Robitussin PO Q4H PRN Cough Sodium Chloride 1,000 mls @ 100 mls/hr 01/17/19 15:00 01/18/19 23:46 Nacl 0.45% 1000 Ml IV 42 mls/hr DIRECT MUNIRA Administration Magnesium Sulfate 2 gm in 50 mls @ 25 mls/hr 01/19/19 14:00 Magnesium Sulfate 2gm/50ml IV 01/19/19 18:00 ONCE NR Insulin Human Lispro 0 unit 01/17/19 18:00 01/19/19 16:34 Humalog SUB-Q Not Given ACHS [facility] Protocol Ondansetron HCl 4 mg 01/17/19 14:48 Zofran IV Q8H PRN Nausea And Vomiting Pantoprazole Sodium 40 mg 01/18/19 10:00 01/19/19 09:48 Protonix PO 40 mg DAILY MUNIRA Administration Pravastatin Sodium 40 mg 01/17/19 22:00 01/18/19 21:47 Pravachol PO 40 mg QHS MUNIRA Administration Sodium Chloride 10 ml 01/17/19 22:00 01/19/19 09:48 Sodium Chloride Flush Syringe 10 Ml IV Not Given BID MUNIRA Sodium Chloride 10 ml 01/17/19 14:48 Sodium Chloride Flush Syringe 10 Ml IV PRN PRN LINE FLUSH
[2019-01-19] MEDS ORDERED: NACL 0.9% 1000 ML 1,000 ML IV SCH (19:00)
[2019-01-19] MEDS: MAG-OX PO SCH (23:24)
[2019-01-19] MEDS: PRAVACHOL PO SCH (23:25)
[2019-01-20 07:56] LABS: Calcium 8.3 mg/dL (8.4-10.2)
--- NOTE | 2019-01-20 10:07 | Progress Note ---
Assessment and Plan 1. Acute kidney injury: ADRIEN superimposed on CKD stage 3. The etiology of ADRIEN is unclear. Suspect Vasomotor mediated / ATN. UA appears bland. Renal US negative for hydronephrosis. Renal function is about the same. Progressive CKD is also likely. Monitor renal function. Avoid nephrotoxic agents. Meds dosage based on GFR. D/w patient about Kidney biopsy. She is agreeable for the procedure. Pt is on ASA, will have to get it done as outpatient. Will hold ASA for a week prior to kidney biopsy. No h/o CAD or coronary stent per patient. 2. FEN: Hyperkalemia, improved. Metabolic acidosis, improving. Monitor lytes. 3. H/o HFrEF: Compensated. 4. Hypertension: BP is controlled. 5. DM type 2. Examination: General appearance: well-developed, well-nourished, appears stated age, no distress HEENT: ATNC, GRANT, mucous membranes moist, hearing intact, vision intact Neck: neck supple, trachea midline Respiratory: Clear to Ascultation Heart: regular, S1S2, no murmur Gastrointestinal: normoactive bowel sounds, not tender Integumentary: no rash, warm and dry Neurologic: no focal deficit, no asterixis, alert and oriented x3 Ext: no edema Subjective Date of service: 01/20/19 Interval history: Patient was seen and examined at the bedside. Doing ok. Objective - Vital Signs Vital signs: Vital Signs - 12hr 01/19/19 01/20/19 01/20/19 23:24 02:00 06:40 Temperature 98.1 F Pulse Rate 94 H 90 91 H Respiratory 18 Rate Blood Pressure 138/69 113/54 O2 Sat by Pulse 91 Oximetry 01/20/19 07:33 Temperature 99.6 F Pulse Rate 92 H Respiratory 16 Rate Blood Pressure 134/67 O2 Sat by Pulse 95 Oximetry - Lab 01/18/19 08:01 01/20/19 07:11 Most recent lab results Calcium 8.3 mg/dL (8.4-10.2) L 01/20/19 07:11 Phosphorus 4.20 mg/dL (2.5-4.5) 01/19/19 05:43 Magnesium 1.80 mg/dL (1.7-2.3) 01/20/19 07:11 Urine Creatinine 32.6 mg/dL (0.1-20.0) H 01/17/19 21:20 Urine Sodium 115 mmol/L 01/17/19 21:20 Medications & Allergies - Medications Allergies/Adverse Reactions: Allergies No Known Allergies Allergy (Verified 05/23/13 22:50) Home Medications: Home Medications Medication Instructions Recorded Confirmed Last Taken Type Pantoprazole [Protonix TAB] 40 mg PO DAILY #30 tablet 07/15/13 01/17/19 01/16/19 Rx Aspirin EC 325 mg PO QDAY 11/08/14 01/17/19 01/16/19 History Simvastatin (Nf) [Zocor TAB] 20 mg PO QHS 11/08/14 01/17/19 01/16/19 History amLODIPine 10 mg PO DAILY 11/08/14 01/17/19 01/16/19 History Furosemide [Lasix TAB] 20 mg PO QDAY #30 tablet 02/16/16 01/17/19 01/16/19 Rx Insulin Detemir [Levemir VIAL] 40 unit SQ QHS 01/17/19 01/17/19 01/16/19 History Azithromycin [Zithromax TAB] 500 mg PO Q24HR #3 tablet 01/20/19 Unknown Rx Carvedilol [Coreg] 25 mg PO BID #60 tablet 01/20/19 Unknown Rx guaiFENesin [Robitussin] 200 mg PO Q4H PRN #1 bottle 01/20/19 Unknown Rx Active Medications: Generic Name Dose Route Start Last Admin Trade Name Freq PRN Reason Stop Dose Admin Acetaminophen 650 mg 01/17/19 14:48 01/19/19 23:23 Tylenol PO 650 mg Q4H PRN Administration Pain MILD(1-3)/Fever >100.5/RO Albuterol 2.5 mg 01/17/19 14:48 Proventil IH Q4HRT PRN Shortness Of Breath Amlodipine Besylate 10 mg 01/18/19 10:00 01/19/19 09:47 Norvasc PO Not Given DAILY MUNIRA Aspirin 325 mg 01/18/19 10:00 01/19/19 09:48 Ecotrin PO 325 mg QDAY MUNIRA Administration Azithromycin 500 mg 01/19/19 14:00 01/19/19 13:00 Zithromax PO 500 mg Q24HR MUNIRA Administration Carvedilol 25 mg 01/17/19 22:00 01/19/19 23:24 Coreg PO 25 mg BID MUNIRA Administration Dextrose 50 ml 01/17/19 14:51 D50w (25gm) Syringe IV Q30MIN PRN Hypoglycemia Guaifenesin 200 mg 01/19/19 10:05 Robitussin PO Q4H PRN Cough Sodium Chloride 1,000 mls @ 100 mls/hr 01/19/19 19:00 01/19/19 23:26 Nacl 0.9% 1000 Ml IV 100 mls/hr DIRECT MUNIRA Administration Insulin Human Lispro 0 unit 01/17/19 18:00 01/19/19 23:25 Humalog SUB-Q Not Given ACHS [facility] Protocol Magnesium Oxide 400 mg 01/19/19 22:00 01/19/19 23:24 Mag-Ox PO 400 mg BID MUNIRA Administration Ondansetron HCl 4 mg 01/17/19 14:48 Zofran IV Q8H PRN Nausea And Vomiting Pantoprazole Sodium 40 mg 01/18/19 10:00 01/19/19 09:48 Protonix PO 40 mg DAILY MUNIRA Administration Pravastatin Sodium 40 mg 01/17/19 22:00 01/19/19 23:25 Pravachol PO 40 mg QHS MUNIRA Administration Sodium Chloride 10 ml 01/17/19 22:00 01/19/19 23:25 Sodium Chloride Flush Syringe 10 Ml IV 10 ml BID MUNIRA Administration Sodium Chloride 10 ml 01/17/19 14:48 Sodium Chloride Flush Syringe 10 Ml IV PRN PRN LINE FLUSH
--- NOTE | 2019-01-20 10:13 | Discharge Summary ---
Providers - Providers Date of Admission: 01/17/19 14:48 Attending physician: MARLEN PETIT MD 01/17/19 14:27 Consult to Physician [CONS] Stat Comment: spoke to dr. 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 Pt states that she has been "feeling sick" over the past 3 days. Pt reports generalized weakness, fatigue and feeling like her heart is racing. Pt was seen by her gambreler helper and found to have worsening renal function. Pt instructed to seek further care at [facility]. Pt transported to [facility] via private vehicle. Pt seen and evaluated in ED and found to have Acute on chronic renal failure, Acidosis, and hyperkalemia. Pt admitted to medical floor. Nephrology consulted in ED. PT denies fever, chills, CP,Palpitations, NVD, trauma, dizziness or lightheadedness, shortness of breath, or recent ill contacts. Prior admission on 07/07/13 reviewed. All listed medication reconciled at time of admission. (1) acute on chronic renal failure - Nephrology consulted we will follow recommendations - IV hydration - Cr didn't get better and nephrology recommend to follow her in the office for renal biopsy. Cleared for discharge. (2) Acidosis - resolved (3) Hyperkalemia - Treated and corrected (4) HTN (hypertension) - Blood pressure is controlled - Continue current medication regimen (5) HLD (hyperlipidemia) - statin therapy (6) Diabetes ADA diet, insulin, accu check, hypoglycemia protocol (7) GERD (gastroesophageal reflux disease) PPI therapy, supportive care Fever and cough - CXR is normal - I empirically put on zithromax, cough syrup patient discharged home. Disposition: TO HOME OR SELFCARE Time spent for discharge: 32 minutes - Discharge Diagnoses (1) ADRIEN (acute kidney injury) Status: Acute (2) Diabetes Status: Acute (3) HLD (hyperlipidemia) Status: Acute Qualifiers: Hyperlipidemia type: mixed hyperlipidemia Qualified Code(s): E78.2 - Mixed hyperlipidemia (4) HTN (hypertension) Status: Acute Qualifiers: Hypertension type: essential hypertension Qualified Code(s): I10 - Es sential (primary) hypertension Core Measure Documentation - Palliative Care Palliative Care/ Comfort Measures: Not Applicable - Core Measures Any of the following diagnoses?: none Exam - Physical Exam Narrative exam: Not in cardiopulmonary distress. The patient appeared well nourished and normally developed. Vital signs as documented. Head exam is unremarkable. No scleral icterus . Neck is without jugular venous distension, thyromegaly, or carotid bruits. Lungs are clear to auscultation. Cardiac exam reveals regular rate and Rhythm. Abdominal exam reveals normal bowel sounds, no masses, no organomegaly and no aortic enlargement. Extremities are nonedematous and both femoral and pedal pulses are normal. 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 No focal weakness. - Constitutional Vitals: Temp Pulse Resp BP Pulse Ox 99.6 F 92 H 16 134/67 95 01/20/19 07:33 01/20/19 07:33 01/20/19 07:33 01/20/19 07:33 01/20/19 07:33 Plan Activity: no restrictions Weight Bearing Status: Full Weight Bearing Diet: low salt, diabetic, renal Follow up with: PRIMARY CAREMD [Primary Care Provider] - 3-5 Days FELIX TRINIDAD MD [Staff Physician] - 7 Days Prescriptions: Carvedilol [Coreg] 25 mg PO BID #60 tablet guaiFENesin [Robitussin] 200 mg PO Q4H PRN #1 bottle PRN Reason: Cough Azithromycin [Zithromax TAB] 500 mg PO Q24HR #3 tablet
[2019-01-20] MEDS: HumaLOG SUB-Q SCH ×2 (10:34→14:19)
[2019-01-20] MEDS: ECOTRIN PO SCH (10:45)
[2019-01-20] MEDS: ZITHROMAX PO SCH (10:46)
[2019-01-20] MEDS: COREG PO SCH (10:46)
[2019-01-20] MEDS: MAG-OX PO SCH (10:46)
[2019-01-20] MEDS: PROTONIX PO SCH (10:46)
[2019-01-20] MEDS: SODIUM CHLORIDE FLUSH SYRINGE 10 ML IV SCH (10:47)
[2019-01-20 10:49] VITALS: BP 130/87
== END 2019-01-20 13:30 | disposition home health service (06) | DRG 640 ==
LOC: ED 11:38 → 2B-ACE 14:48
PROVIDERS: ADMIT Internal Medicine; ATTEND Internal Medicine
PROC: 3E0234Z Introduction of Serum, Toxoid and Vaccine into Muscle, Percutaneous Approach (ICD-10-PCS; principal; 2019-01-18)
DX: E87.5 Hyperkalemia (principal); N17.0 Acute kidney failure with tubular necrosis; I50.20 Unspecified systolic (congestive) heart failure; I13.0 Hypertensive heart and chronic kidney disease with heart failure and stage 1 through stage 4 chronic kidney disease, or unspecified chronic kidney disease; E87.2 Acidosis; N18.3 Chronic kidney disease, stage 3 (moderate); E11.22 Type 2 diabetes mellitus with diabetic chronic kidney disease; E66.9 Obesity, unspecified; K21.9 Gastro-esophageal reflux disease without esophagitis; E78.2 Mixed hyperlipidemia; Z86.73 Personal history of transient ischemic attack (TIA), and cerebral infarction without residual deficits; Z68.31 Body mass index [BMI] 31.0-31.9, adult; Z79.82 Long term (current) use of aspirin; Z79.899 Other long term (current) drug therapy; Z79.4 Long term (current) use of insulin; Z82.49 Family history of ischemic heart disease and other diseases of the circulatory system; Z83.3 Family history of diabetes mellitus; Z90.711 Acquired absence of uterus with remaining cervical stump; Z23 Encounter for immunization
CPT/HCPCS: 36415; 71046; 76770; 80048; 80053; 81001; 82550; 82570; 82962; 83735; 84100; 84132; 84300; 84439; 84443; 84484; 85025; 85610; 85730; 89050; 90686; 90732; 93005; 93010; 94640; 96374; G0378; A9270-GY; J1815; J3475; J7030

== ENCOUNTER 2019-02-27 12:52 | Emergency (ER) | payer MEDICARE ==
[2019-02-27 12:59] VITALS: BP 146/80
== END 2019-02-27 13:00 | disposition left against medical advice (07) ==
LOC: ED 12:52
DX: Z53.21 Procedure and treatment not carried out due to patient leaving prior to being seen by health care provider (principal)

== ENCOUNTER 2020-02-01 08:52 | Day surgery (SDC) | payer MEDICARE ==
[~2020-02-01 08:52] MED LIST: MIDAZOLAM 2 MG/2 ML INJ IV NR; SODIUM CHLORIDE 0.9% 1000 ML 1,000 ML IV SCH; ceFAZolin/Water 2 GM/20 ML 2 GM/20 ML SYRINGE IV NR; fentaNYL 100 MCG/2 ML INJ IV PRN
[2020-02-01] MEDS ORDERED: rifAMPin 600 MG VIAL ONE (09:42)
[2020-02-01] MEDS ORDERED: BUPIVACAINE/PF (0.5%) 5 MG/1 ML 10 ML VIAL INFILTRATI ONE (09:42)
[2020-02-01] MEDS ORDERED: SODIUM CHLORIDE 0.9% 250ML 250 ML ONE (09:42)
[2020-02-01] MEDS ORDERED: HEPARIN 10,000 UNITS/10 ML VIAL ONE (09:42)
[2020-02-01] MEDS ORDERED: SODIUM CHLORIDE 0.9% 500 ML 500 ML ONE (09:42)
[2020-02-01 10:24] LABS: Hematocrit 31.5 % (30.3-42.9); Hemoglobin 10.4 gm/dl (10.1-14.3); Mean Corpuscular HGB Conc 33 % (30-34); Mean Corpuscular Volume 94 fl (79-97); Platelet Count 301 K/mm3 (140-440); Red Blood Count 3.34 M/mm3 (3.65-5.03); Red Cell Distribution Width 15.5 % (13.2-15.2)
[2020-02-01 10:37] LABS: Calcium 9.4 mg/dL (8.4-10.2)
[2020-02-01] MEDS ORDERED: DEXTROSE 50% IN WATER (25GM) 50 ML SYRINGE IV ONE (10:42)
[2020-02-01] MEDS ORDERED: BUPIVACAINE/PF (0.25%) 2.5 MG/ML 30 ML VIAL INFILTRATI ONE (10:48)
[2020-02-01] MEDS ORDERED: ONDANSETRON 4 MG/2 ML INJ ONE (10:49)
[2020-02-01] MEDS ORDERED: dexAMETHasone 20 MG/5 ML VIAL ONE (10:49)
[2020-02-01] MEDS ORDERED: PHENYLEPHRINE/NS 1,000 MCG/10 ML SYRINGE (OR USE) IV ONE (10:49)
[2020-02-01] MEDS ORDERED: GLYCOPYRROLATE 0.4 MG/2 ML INJ ONE (10:49)
[2020-02-01] MEDS ORDERED: LIDOCAINE MPF (2%) 20 MG/1 ML VIAL 5 ML ONE (10:49)
[2020-02-01] MEDS ORDERED: propofoL 200 MG/20 ML VIAL IV ONE (10:49)
[2020-02-01] MEDS ORDERED: fentaNYL 100 MCG/2 ML INJ ONE (10:49)
--- NOTE | 2020-02-01 11:06 | Anesthesia Consultation ---
Anesthesia Consult and Med Hx Date of service: 02/01/20 - Airway Anesthetic Teeth Evaluation: Edentulous ROM Head & Neck: Adequate Mental/Hyoid Distance: Adequate Mallampati Class: Class III Intubation Access Assessment: Possibly Difficult - Pulmonary Exam CTA: Yes - Cardiac Exam Cardiac Exam: RRR - Pre-Operative Health Status ASA Pre-Surgery Classification: ASA3 Proposed Anesthetic Plan: MAC Nerve Block: Supraclavicular - Pulmonary Hx Smoking: No Hx Respiratory Symptoms: No Hx Sleep Apnea: Yes (no CPAP) - Cardiovascular System Hx Hypertension: Yes (took antihypertensives last night) Hx Heart Attack/AMI: No Hx Percutaneous Transluminal Coronary Angioplasty (PTCA): No Hx Cardia Arrhythmia: No - Central Nervous System CVA: Yes (2011 no deficits) - Gastrointestinal Hx Gastroesophageal Reflux Disease: Yes (well controlled) - Endocrine Hx Renal Disease: Yes (not yet on HD) Hx Insulin Dependent Diabetes: Yes (took night time insulin dose yesterday. ) Hx Thyroid Disease: No - Hematic Hx Anemia: Yes - Other Systems Hx Obesity: No - Additional Comments Anesthesia Medical History Comments: No hx anesthetic complications. Glucose <60 in preop; will give D50.
--- NOTE | 2020-02-01 11:06 | Anesthesia Day of Surgery ---
Anesthesia Day of Surgery - Day of Surgery Patient Examined: Yes Patient H&P Reviewed: Yes Patient is NPO: Yes Beta Blockers: Yes (carvedilol 01/30 PM)
--- NOTE | 2020-02-01 11:07 | Progress Note ---
Regional Anesthesia Block - Regional Anesthesia Block Start Time: 10:55 Stop Time: 11:01 Performed By:: VICENTA SANCHEZ Procedure: [Left] Ultrasound Guided Supraclavicular Block Pt IDd, consent obtained, time out performed. Pt on monitor + O2 via NC, VS stable, sedation given per pre-op RN. Sterile prep. Landmarks identified with ultrasound. [2]cc skin wheel with 1% lidocaine. Needle advanced to brachial plexus in plane with ultrasound. [20]cc [0.25]% bupivacaine injected incrementally with negative aspiration, no paresthesias. Pt tolerated procedure well, no immediate complications noted.
[2020-02-01] MEDS ORDERED: KETAMINE/STERILE WATER 50 MG/ML SYRINGE ONE (11:22)
[2020-02-01] MEDS ORDERED: HEPARIN 10,000 UNITS/10 ML VIAL IR ONE (11:51)
[2020-02-01] MEDS ORDERED: SODIUM CHLORIDE 0.9% 500 ML IVPB IRRIGATION ONE (11:52)
[2020-02-01] MEDS ORDERED: SODIUM CHLORIDE 0.9% 250 ML IVPB IR ONE (11:52)
[2020-02-01] MEDS ORDERED: rifAMPin 600 MG VIAL IV ONE (11:52)
[2020-02-01] MEDS ORDERED: SODIUM CHLORIDE 0.9% IRR 1,500 ML BOTTLE IR ONE (11:53)
--- NOTE | 2020-02-01 13:13 | Short Stay Summary ---
Short Stay Documentation Date of service: 02/01/20 Narrative H&P: See H&P - History H&P: obtained from office - Allergies and Medications Current Medications: Allergies No Known Allergies Allergy (Verified 05/23/13 22:50) Home Medications Medication Instructions Recorded Confirmed Last Taken Type Pantoprazole [Protonix TAB] 40 mg PO DAILY #30 tablet 07/15/13 08/31/19 01/16/19 Rx Aspirin EC [Ecotrin] 325 mg PO QDAY 11/08/14 08/31/19 01/16/19 History Simvastatin (Nf) [Zocor TAB] 20 mg PO QHS 11/08/14 08/31/19 01/16/19 History amLODIPine 10 mg PO DAILY 11/08/14 08/31/19 01/16/19 History carvediloL [Coreg] 25 mg PO BID #60 tablet 01/20/19 08/31/19 Unknown Rx Aspirin 81 mg PO DAILY 01/27/20 01/27/20 Unknown History HumuLIN N 10 units SQ QACHS 01/27/20 01/27/20 Unknown History Insulin Glargine [Lantus VIAL] 10 units SQ HS 01/27/20 01/27/20 Unknown History Travatan Z 0.004% 1 drop OU HS 01/27/20 01/27/20 Unknown History Active Medications Fentanyl (Sublimaze) 100 mcg IV ONCE PRN PRN Reason: sedation for nerve block Cefazolin Sodium (Ancef/Sterile Water 2 Gm/20 Ml) 2 gm in 20 mls @ 80 mls/hr IV PREOP NR; Protocol Stop: 02/01/20 23:00 Sodium Chloride (Nacl 0.9% 1000 Ml) 1,000 mls @ 42 mls/hr IV DIRECT MUNIRA Stop: 02/01/20 23:59 Midazolam HCl (Versed) 2 mg IV PREOP NR Stop: 02/01/20 23:00 - Brief post op/procedure progress note Date of procedure: 02/01/20 Pre-op diagnosis: End-Stage Renal Disease Post-op diagnosis: same Procedure: Creation of Left Brachial Artery to Left Axillary Vein Arteriovenous Graft a 5 mm Bovine Artegraft Anesthesia: MAC, regional Surgeon: IAN URRUTIA Estimated blood loss: minimal Pathology: none Condition: stable - Disposition Condition at discharge: Good Disposition: DC-01 TO HOME OR SELFCARE Short Stay Discharge Plan Activity: other (No heavy lifting with left arm for 2 weeks.) Wound: open to air, keep clean and dry, other (Okay to wash the wound with soap and water but do not soak the wound in water for 2 weeks.) Follow up with: IAN URRUTIA MD [Staff Physician] - 14 Days Prescriptions: HYDROcodone/APAP 7.5-325 [[place] 7.5/325] 1 each PO Q6HR PRN #30 tablet PRN Reason: Pain
--- NOTE | 2020-02-01 13:15 | Operative Report ---
Operative Report Operative Report: Date of procedure: 02/01/2020 Pre-operative diagnosis: End-Stage Renal Disease Post-operative diagnosis: Same Procedure(s): 1. Creation of Left Brachial Artery to Axillary Vein AV Graft with 5 mm Bovine Graft Artergraft Surgeon: Kevyn Alcantar MD Rod Filler: None Anesthesia: Regional/MAC EBL: Minimal Counts: Correct Complications: None Condition: Stable Findings: Successful Creation of Left Arm AV Graft with Palpable Thrill and Palpable Radial Pulse at the Completion of the Case. Specimen: None Indication: The patient is a 69-year-old female with a history of end-stage renal disease who is currently on hemodialysis through a right internal jugular permacath. She is in need of long-term dialysis access however she does not have adequate vein for creation of a fistula so she requires creation of an arteriovenous graft. She was given the risk, benefits, and alternative procedures and c onsented to the procedure. Description of Procedure: Prior to being transported to the operating room the patient had a regional block of the left arm performed. After the block was performed the patient was transported to the operating room and adequately sedated. The patient's left arm was then prepped and draped in normal sterile fashion. A longitudinal incision was made on the medial aspect of the arm just proximal to the antecubital crease and carried down to the brachial artery using sharp dissection. The brachial artery was dissected out circumferentially both proximally and distally and controlled with vessel loops. A second incision was created in longitudinal fashion on the medial aspect of the arm just distal to the axillary crease and carried down to the axillary vein using sharp dissection. Axillary vein was dissected out circumferentially and controlled with a vessel loop. I then used a Lali-Wick tunneler to tunnel from the brachial artery incision to the axillary vein incision and then put an 5 mm bovine through the tunnel. I infused with heparinized saline to ensure that it was not twisted or kinked. I put the brachial artery vessel loops on tension co ntrolling the flow and then created an arteriotomy using an 11 blade and Bob scissors. I beveled the graft and created an end-to-side anastomosis using 6-0 Prolene running fashion. I clamped the graft just proximal to the anastomosis and then released the vessel loops restoring flow in the brachial artery. I placed quick clot in incision to achieve hemostasis. I cut the proximal end of the graft to the appropriate length and beveled the graft in preparation for a venous anastomosis. I controlled the axillary vein a Satinsky clamp and created a venotomy using an 11 blade and Bob scissors. I created an end to side anastomosis using a 6-0 Prolene in running fashion. Prior to completing the anastomosis I flushed the graft to ensure there was no thrombus and then completed the anastamosis. I released all clamps allowing flow into the AV graft which had an excellent thrill. I packed the wound with quick clot to achieve hemostasis. I anesthetized both wounds with 0.5% Marcaine and then closed both wounds in 2 layers using 3-0 Vicryl in running fashion in the deep dermal layer and 4-0 Monocryl in running fashion the subcuticular layer. I dressed both wounds with Dermabond. The patient tolerated the procedure well all sponge, needle, and instrument counts were correct. The patient was taken to recovery in stable condition.
[2020-02-01 14:53] VITALS: BP 134/78
--- NOTE | 2020-02-01 15:32 | Post Anesthesia Evaluation ---
- Post Anesthesia Evaluation Patient Participated: Yes Airway Patent: Yes Stable Respiratory Function: Yes Nausea/Vomiting: No Temp > 96.8F: Yes Pain Manageable: Yes Adequeate Hydration: Yes Anesthesia Complications: No
== END 2020-02-01 08:53 | disposition home or self-care (01) ==
LOC: OR 08:52
PROVIDERS: ATTEND Surgery Vascular Surgery
DX: I12.0 Hypertensive chronic kidney disease with stage 5 chronic kidney disease or end stage renal disease (principal); E11.22 Type 2 diabetes mellitus with diabetic chronic kidney disease; N18.6 End stage renal disease; K21.9 Gastro-esophageal reflux disease without esophagitis; E11.39 Type 2 diabetes mellitus with other diabetic ophthalmic complication; H40.9 Unspecified glaucoma; E78.00 Pure hypercholesterolemia, unspecified; G47.30 Sleep apnea, unspecified; Z90.710 Acquired absence of both cervix and uterus; Z98.891 History of uterine scar from previous surgery; Z87.440 Personal history of urinary (tract) infections; Z91.81 History of falling; Z98.890 Other specified postprocedural states; Z79.82 Long term (current) use of aspirin; Z79.899 Other long term (current) drug therapy; Z79.4 Long term (current) use of insulin; Z86.73 Personal history of transient ischemic attack (TIA), and cerebral infarction without residual deficits; Z86.2 Personal history of diseases of the blood and blood-forming organs and certain disorders involving the immune mechanism
CPT/HCPCS: 36415; 36830; 80048; 85027; C1768; J0690; J1100; J1644; J2250; J2370; J2405; J2704; J3010; J3490; J7030; J7040; J7050; 64450

== ENCOUNTER 2021-05-18 23:27 | Observation (INO) | payer MEDICARE ==
[2021-05-19 01:11] LABS: Basophils # (Auto) 0.1 K/mm3 (0.0-0.1); Basophils % (Auto) 0.7 % (0.0-1.8); Eosinophils # (Auto) 0.3 K/mm3 (0.0-0.4); Eosinophils % (Auto) 3.4 % (0.0-4.3); Hemoglobin 12.1 gm/dl (10.1-14.3); Lymphocytes # (Auto) 2.2 K/mm3 (1.2-5.4); Lymphocytes % (Auto) 23.5 % (13.4-35.0); Mean Corpuscular HGB Conc 33 % (30-34); Mean Corpuscular Volume 94 fl (79-97); Monocytes # (Auto) 0.6 K/mm3 (0.0-0.8); Monocytes % (Auto) 6.8 % (0.0-7.3); Platelet Count 264 K/mm3 (140-440); Red Blood Count 3.96 M/mm3 (3.65-5.03); Red Cell Distribution Width 16.3 % (13.2-15.2)
[2021-05-19 01:21] LABS: INR 1.19 (0.87-1.13)
[2021-05-19 01:30] LABS: Partial Thromboplastin Time 41.7 Sec. (24.2-36.6)
[2021-05-19 01:31] LABS: Calcium 8.7 mg/dL (8.4-10.2)
--- NOTE | 2021-05-19 02:17 | Emergency Department Report ---
ED General Adult HPI - General Chief complaint: Medical Clearance Stated complaint: CLOGGED PORT Time Seen by Provider: 05/19/21 00:23 Source: EMS Mode of arrival: Stretcher Limitations: Physical Limitation - History of Present Illness Initial comments: 71-year-old female presents from detention with complaints of right femoral dialysis catheter malfunction. Patient states dialysis was not performed because it was not working. After discussion with Dr. Fernandez he states that staff noticed purulent drainage from catheter site and therefore dialysis was not performed. Patient has otherwise been compliant with her Thursday, , and Thursday dialysis sessions. She denies shortness of breath. Patient does have a left arm AV graft which is nonfunctioning as per patient. No reports of fever - Related Data Home Medications Medication Instructions Recorded Confirmed Last Taken Travatan Z 0.004% 1 drop OU HS 01/27/20 02/21/21 1 Day Ago ~02/20/21 Aspirin [Aspirin BABY CHEW TAB] 81 mg PO QDAY 02/25/21 02/25/21 02/20/21 Simvastatin 20 mg PO QHS 02/25/21 02/25/21 02/20/21 Previous Rx's Medication Instructions Recorded Last Taken Type Pantoprazole [Protonix TAB] 40 mg PO DAILY #30 tablet 07/15/13 1 Day Ago Rx ~02/20/21 carvediloL [Coreg] 25 mg PO BID #60 tablet 01/20/19 1 Day Ago Rx ~02/20/21 Apixaban [Eliquis] 5 mg PO BID #60 tablet 03/01/21 Unknown Rx Heparin [Heparin 10,000 Units/10 3,000 unit IV TIANNA PRN vial 03/01/21 Unknown Rx ml] Latanoprost 0.005% 1 drops OU QPM #1 bottle 03/01/21 Unknown Rx Docusate Sodium [Colace CAP] 100 mg PO BID #30 capsule 03/07/21 Unknown Rx Allergies Allergy/AdvReac Type Severity Reaction Status Date / Time No Known Allergies Allergy Verified 05/23/13 22:50 ED Review of Systems ROS: Stated complaint: CLOGGED PORT Other details as noted in HPI Comment: All other systems reviewed and negative ED Past Medical Hx - Past Medical History Hx Hypertension: Yes (took antihypertensives last night) Hx CVA: Yes (2012) Hx Heart Attack/AMI: No Hx Congestive Heart Failure: No Hx Diabetes: Yes Hx Deep Vein Thrombosis: No Hx Pulmonary Embolism: No Hx GERD: Yes (HX ACUTE GASTRITIS) Hx Liver Disease: No Hx Renal Disease: Yes (not yet on HD) Hx Sickle Cell Disease: No Hx Arthritis: No Hx Headaches / Migraines: No Hx Seizures: No Hx Kidney Stones: No Hx Psychiatric Treatment: No Hx Asthma: No Hx COPD: No Hx Tuberculosis: No Hx Dementia: No Hx HIV: No - Surgical History Past Surgical History?: Yes Hx Pacemaker: No Hx Internal Defibrillator: No Additional Surgical History: eye surgery and partial hysterectomy - Social History Smoking Status: Never Smoker - Medications Home Medications: Home Medications Medication Instructions Recorded Confirmed Last Taken Type Pantoprazole [Protonix TAB] 40 mg PO DAILY #30 tablet 07/15/13 02/21/21 1 Day Ago Rx ~02/20/21 carvediloL [Coreg] 25 mg PO BID #60 tablet 01/20/19 02/21/21 1 Day Ago Rx ~02/20/21 Travatan Z 0.004% 1 drop OU HS 01/27/20 02/21/21 1 Day Ago History ~02/20/21 Aspirin [Aspirin BABY CHEW TAB] 81 mg PO QDAY 02/25/21 02/25/21 02/20/21 History Simvastatin 20 mg PO QHS 02/25/21 02/25/21 02/20/21 History Apixaban [Eliquis] 5 mg PO BID #60 tablet 03/01/21 Unknown Rx Heparin [Heparin 10,000 Units/10 3,000 unit IV TIANNA PRN vial 03/01/21 Unknown Rx ml] Latanoprost 0.005% 1 drops OU QPM #1 bottle 03/01/21 Unknown Rx Docusate Sodium [Colace CAP] 100 mg PO BID #30 capsule 03/07/21 Unknown Rx ED Physical Exam - General Limitations: Physical Limitation - Other Other exam information: General: No acute distress Head: Atraumatic Eyes: normal appearance Neck: Normal appearance Chest: Clear to auscultation bilaterally CV: Regular rate and rhythm, left AV graft with stitches in place and palpable thrill, right femoral dialysis catheter Abdomen: Soft, normal bowel sounds, nontender, nondistended, no rebound or guarding Back: Normal inspection Extremity: Normal inspection, full range of motion Neuro: Alert, speech clear ED Course Vital Signs 05/19/21 05/19/21 05/19/21 00:37 00:45 01:01 Pulse Rate 84 84 82 Respiratory 19 20 18 Rate Blood Pressure 132/66 121/67 O2 Sat by Pulse 98 97 97 Oximetry 05/19/21 05/19/21 05/19/21 01:15 01:31 01:40 Pulse Rate 81 85 Respiratory 14 17 18 Rate Blood Pressure 120/66 119/60 O2 Sat by Pulse 98 96 98 Oximetry 05/19/21 05/19/21 05/19/21 01:45 02:01 02:15 Pulse Rate 82 82 83 Respiratory 15 16 20 Rate Blood Pressure 128/66 130/68 123/63 O2 Sat by Pulse 99 98 99 Oximetry 05/19/21 05/19/21 05/19/21 02:31 02:45 03:01 Pulse Rate 82 82 85 Respiratory 20 19 21 Rate Blood Pressure 125/62 134/69 134/66 O2 Sat by Pulse 99 99 100 Oximetry 05/19/21 03:15 Pulse Rate 86 Respiratory 19 Rate Blood Pressure 117/51 O2 Sat by Pulse 100 Oximetry - Consultations Consultation #1: 05/19/21 02:[address] Fernandez with me with the patient. States that purulent d rainage was noted at the catheter site therefore it was not used during dialysis today. He does not know the details regarding her left arm AV graft. Recommends blood cultures and admission to the hospitalist. Patient will require emergent dialysis at this time. Consult with vascular will be ordered ED Medical Decision Making - Lab Data Result diagrams: 05/19/21 00:37 05/19/21 00:37 Lab Results 05/19/21 05/19/21 05/19/21 Range/Units 00:37 00:37 00:37 WBC 9.5 (4.5-11.0) K/mm3 RBC 3.96 (3.65-5.03) M/mm3 Hgb 12.1 (10.1-14.3) gm/dl Hct 37.0 (30.3-42.9) % MCV 94 (79-97) fl MCH 30 (28-32) pg MCHC 33 (30-34) % RDW 16.3 H (13.2-15.2) % Plt Count 264 (140-440) K/mm3 Lymph % (Auto) 23.5 (13.4-35.0) % Marion % (Auto) 6.8 (0.0-7.3) % Eos % (Auto) 3.4 (0.0-4.3) % Baso % (Auto) 0.7 (0.0-1.8) % Lymph # (Auto) 2.2 (1.2-5.4) K/mm3 Marion # (Auto) 0.6 (0.0-0.8) K/mm3 Eos # (Auto) 0.3 (0.0-0.4) K/mm3 Baso # (Auto) 0.1 (0.0-0.1) K/mm3 Seg Neutrophils % 65.6 (40.0-70.0) % Seg Neutrophils # 6.3 (1.8-7.7) K/mm3 PT 16.4 H (12.2-14.9) Sec. INR 1.19 H (0.87-1.13) APTT 41.7 H (24.2-36.6) Sec. Sodium 139 (137-145) mmol/L Potassium 4.3 (3.6-5.0) mmol/L Chloride 98.9 (98-107) mmol/L Carbon Dioxide 23 (22-30) mmol/L Anion Gap 21 mmol/L BUN 44 H (7-17) mg/dL Creatinine 5.8 H (0.6-1.2) mg/dL Estimated GFR 9 ml/min BUN/Creatinine Ratio 8 % Glucose 189 H (65-100) mg/dL Calcium 8.7 (8.4-10.2) mg/dL - Medical Decision Making 71-year-old female presents to the hospital with inability to receive her dialysis due to possible catheter infection. Patient is asymptomatic. She is afebrile without leukocytosis. Blood cultures obtained as per request of hydroelectric station chief. Antibiotics not recommended at this time. patient does not require emergent dialysis at this time. She will be admitted for definitive vascular access. Vascular doctor also consulted. Critical Care Time: No Critical care attestation.: If time is entered above; I have spent that time in minutes in the direct care of this critically ill patient, excluding procedure time. ED Disposition Clinical Impression: ESRD (end stage renal disease) on dialysis, Complication, dialysis catheter clot or failure, Missed dialysis Disposition: 09 ADMITTED INPATIENT Is pt being admited?: Yes Condition: Stable Time of Disposition: 02:17 (Gbenle/hospitalist)
[2021-05-19] MEDS ORDERED: ACETAMINOPHEN 325 MG TAB PO PRN (03:27)
[2021-05-19] MEDS ORDERED: ONDANSETRON 4 MG/2 ML INJ IV PRN (03:27)
[2021-05-19] MEDS ORDERED: MORPHINE 2 MG/1 ML INJ IV PRN (03:27)
[2021-05-19] MEDS ORDERED: MORPHINE 4 MG/1 ML INJ IV PRN (03:27)
[2021-05-19] MEDS ORDERED: DEXTROSE 50% IN WATER (25GM) 50 ML SYRINGE IV PRN (03:27)
[2021-05-19] MEDS ORDERED: MAGNESIUM HYDROXIDE (MOM) ORAL LIQD UDC PO PRN (03:27)
[2021-05-19] MEDS ORDERED: DEXTROSE 10% *Hypoglycemia IV PRN (03:35)
--- NOTE | 2021-05-19 03:37 | History and Physical Report ---
History of Present Illness Date of examination: 05/19/21 Date of admission: 05/19/2021 Chief complaint: 71-year-old female resident of a senior living brought into the emergency room today for evaluation of a malfunctioning right femoral dialysis catheter. She therefore missed her dialysis due to the malfunctioning catheter. Patient normally gets her dialysis on Tuesdays, and Saturdays. She denies any fever or chills, no shortness of breath no chest pain, no nausea or vomiting and no abdominal pain. Patient however has an AV fistula on the left upper arm. Work-up in the emergency room today BUN was 44 creatinine 5.8. Potassium was 4.3. Consult has been placed to nephrology for possible dialysis in the a.m. Past History Past Medical History: diabetes, dialysis, ESRD, GERD, hypertension, stroke (2012) Past Surgical History: hysterectomy (Partial), Other (Eye surgery) Social history: no significant social history Family history: no significant family history Medications and Allergies Allergies Allergy/AdvReac Type Severity Reaction Status Date / Time No Known Allergies Allergy Verified 05/23/13 22:50 Home Medications Medication Instructions Recorded Confirmed Last Taken Type Pantoprazole [Protonix TAB] 40 mg PO DAILY #30 tablet 07/15/13 02/21/21 1 Day Ago Rx ~02/20/21 carvediloL [Coreg] 25 mg PO BID #60 tablet 01/20/19 02/21/21 1 Day Ago Rx ~02/20/21 Travatan Z 0.004% 1 drop OU HS 01/27/20 02/21/21 1 Day Ago History ~02/20/21 Aspirin [Aspirin BABY CHEW TAB] 81 mg PO QDAY 02/25/21 02/25/21 02/20/21 History Simvastatin 20 mg PO QHS 02/25/21 02/25/21 02/20/21 History Apixaban [Eliquis] 5 mg PO BID #60 tablet 03/01/21 Unknown Rx Heparin [Heparin 10,000 Units/10 3,000 unit IV TIANNA PRN vial 03/01/21 Unknown Rx ml] Latanoprost 0.005% 1 drops OU QPM #1 bottle 03/01/21 Unknown Rx Docusate Sodium [Colace CAP] 100 mg PO BID #30 capsule 03/07/21 Unknown Rx Active Meds: Active Medications Acetaminophen (Acetaminophen 325 Mg Tab) 650 mg PO Q4H PRN PRN Reason: Pain MILD(1-3)/Fever >100.5/RO Dextrose (Dextrose 50% In Water (25gm) 50 Ml Syringe) 50 ml IV Q30MIN PRN; Protocol PRN Reason: Hypoglycemia Dextrose (Dextrose 50% In Water (25gm) 50 Ml Syringe) 50 ml IV Q30MIN PRN; Protocol PRN Reason: Hypoglycemia Insulin Human Lispro (Insulin Lispro 100 Unit/Ml) 0 unit SUB-Q ACHS MUNIRA; Protocol Magnesium Hydroxide (Magnesium Hydroxide (Mom) Oral Liqd Udc) 30 ml PO Q4H PRN PRN Reason: Constipation Morphine Sulfate (Morphine 2 Mg/1 Ml Inj) 2 mg IV Q4H PRN PRN Reason: Pain, Moderate (4-6) Morphine Sulfate (Morphine 4 Mg/1 Ml Inj) 4 mg IV Q4H PRN PRN Reason: Pain , Severe (7-10) Ondansetron HCl (Ondansetron 4 Mg/2 Ml Inj) 4 mg IV Q8H PRN PRN Reason: Nausea And Vomiting Sodium Chloride (Sodium Chloride 0.9% 10 Ml Flush Syringe) 10 ml IV BID MUNIRA Sodium Chloride (Sodium Chloride 0.9% 10 Ml Flush Syringe) 10 ml IV PRN PRN PRN Reason: LINE FLUSH Review of Systems Constitutional: no fever, no chills Ears, nose, mouth and throat: no nasal congestion, no sore throat Cardiovascular: no chest pain, no palpitations Respiratory: no cough, no shortness of breath Gastrointestinal: no nausea, no vomiting, no diarrhea Genitourinary Female: no pelvic pain, no flank pain, no dysuria, no hematuria Musculoskeletal: no neck pain, no low back pain Integumentary: no rash, no pruritis Neurological: no headaches, no confusion Psychiatric: no anxiety, no depression Endocrine: no polyphagia, no polydipsia, no polyuria, no nocturia Exam - Constitutional Vitals: Temp Pulse Resp BP Pulse Ox 86 19 117/51 100 05/19/21 03:15 05/19/21 03:15 05/19/21 03:15 05/19/21 03:15 General appearance: Present: no acute distress, well-nourished - EENT Eyes: Present: PERRL, EOM intact. Absent: scleral icterus ENT: hearing intact, clear oral mucosa, dentition normal - Neck Neck: Present: supple, normal ROM - Respiratory Respiratory effort: normal Respiratory: bilateral: CTA - Cardiovascular Rhythm: regular Heart Sounds: Present: S1 & S2. Absent: systolic murmur, diastolic murmur, rub, click - Extremities Extremities: no ischemia, pulses intact, pulses symmetrical, No edema, normal temperature, normal color, Full ROM Peripheral Pulses: within normal limits - Abdominal General gastrointestinal: Present: soft, non-tender, non-distended, normal bowel sounds. Absent: mass - Integumentary Integumentary: Present: clear, warm, dry, normal turgor. Absent: rash - Musculoskeletal Musculoskeletal: strength equal bilaterally, other (Left upper arm A-V fistula with palpable thrill) - Psychiatric Psychiatric: appropriate mood/affect, intact judgment & insight, memory intact, cooperative - Neurologic Neurologic: CNII-XII intact, no focal deficits, moves all extremities Results - Labs CBC & Chem 7: 05/19/21 00:37 05/19/21 00:37 Labs: Abnormal lab results 05/19/21 05/19/21 05/19/21 Range/Units 00:37 00:37 00:37 RDW 16.3 H (13.2-15.2) % PT 16.4 H (12.2-14.9) Sec. INR 1.19 H (0.87-1.13) APTT 41.7 H (24.2-36.6) Sec. BUN 44 H (7-17) mg/dL Creatinine 5.8 H (0.6-1.2) mg/dL Glucose 189 H (65-100) mg/dL Assessment and Plan - Patient Problems (1) ESRD (end stage renal disease) on dialysis Current Visit: Yes Status: Acute Plan to address problem: Consult placed to nephrology for possible dialysis in the a.m. Patient gets dialysis on Tuesdays, and Saturdays. (2) Diabetes mellitus Current Visit: Yes Status: Acute Plan to address problem: Patient placed on sliding scale insulin. We will monitor Accu-Cheks closely. (3) HTN (hypertension) Current Visit: No Status: Chronic Qualifiers: Hypertension type: essential hypertension Plan to address problem: We will resume routine home medications once reconciled and monitor vital signs closely. (4) DVT prophylaxis Current Visit: No Status: Acute Plan to address problem: Patient placed on subcutaneous heparin. (5) Full code status Current Visit: Yes Status: Acute Plan to address problem: Patient is full code.
[2021-05-19] MEDS: INSULIN LISPRO 100 UNIT/ML SUB-Q SCH ×4 (09:30→22:35)
--- NOTE | 2021-05-19 09:53 | Consultation ---
History of Present Illness - Reason for Consult Consult date: 05/19/21 end stage renal disease - History of Present Illness The patient is a 71 year old female patient known to our practice with history significant for DM-2, HTN, Hyperlipidemia, Anemia and ESRD on hemodialysis (TTS) who presented to [facility] ED 05/18 with malfunctioning dialysis catheter. Patient is a poor historian. Dialysis was not performed yesterday secondary to purulent discharge noted from the exit site of the R femoral tunnel catheter. Patient denies any complaint at this time. She was last dialyzed on 05/16/21. Labs reviewed. Nephrology was consulted for ESRD management. Past History Past Medical History: diabetes, dialysis, ESRD, GERD, hypertension, stroke (2012) Past Surgical History: hysterectomy (Partial), Other (Eye surgery) Social history: no significant social history Family history: no significant family history Medications and Allergies Allergies Allergy/AdvReac Type Severity Reaction Status Date / Time No Known Allergies Allergy Verified 05/23/13 22:50 Home Medications Medication Instructions Recorded Confirmed Last Taken Type Pantoprazole [Protonix TAB] 40 mg PO DAILY #30 tablet 07/15/13 02/21/21 1 Day Ago Rx ~02/20/21 carvediloL [Coreg] 25 mg PO BID #60 tablet 01/20/19 02/21/21 1 Day Ago Rx ~02/20/21 Travatan Z 0.004% 1 drop OU HS 01/27/20 02/21/21 1 Day Ago History ~02/20/21 Aspirin [Aspirin BABY CHEW TAB] 81 mg PO QDAY 02/25/21 02/25/21 02/20/21 History Simvastatin 20 mg PO QHS 02/25/21 02/25/21 02/20/21 History Apixaban [Eliquis] 5 mg PO BID #60 tablet 03/01/21 Unknown Rx Heparin [Heparin 10,000 Units/10 3,000 unit IV TIANNA PRN vial 03/01/21 Unknown Rx ml] Latanoprost 0.005% 1 drops OU QPM #1 bottle 03/01/21 Unknown Rx Docusate Sodium [Colace CAP] 100 mg PO BID #30 capsule 03/07/21 Unknown Rx Active Meds: Active Medications Acetaminophen (Acetaminophen 325 Mg Tab) 650 mg PO Q4H PRN PRN Reason: Pain MILD(1-3)/Fever >100.5/RO Dextrose (Dextrose 10% *Hypoglycemia) 0 ml IV DIRECT PRN; Protocol PRN Reason: Hypoglycemia Heparin Sodium (Porcine) (Heparin 5,000 Unit/1 Ml Vial) 5,000 unit SUB-Q Q8HR MUNIRA Insulin Human Lispro (Insulin Lispro 100 Unit/Ml) 0 unit SUB-Q ACHS MUNIRA; Protocol Magnesium Hydroxide (Magnesium Hydroxide (Mom) Oral Liqd Udc) 30 ml PO Q4H PRN PRN Reason: Constipation Morphine Sulfate (Morphine 2 Mg/1 Ml Inj) 2 mg IV Q4H PRN PRN Reason: Pain, Moderate (4-6) Morphine Sulfate (Morphine 4 Mg/1 Ml Inj) 4 mg IV Q4H PRN PRN Reason: Pain , Severe (7-10) Ondansetron HCl (Ondansetron 4 Mg/2 Ml Inj) 4 mg IV Q8H PRN PRN Reason: Nausea And Vomiting Sodium Chloride (Sodium Chloride 0.9% 10 Ml Flush Syringe) 10 ml IV BID MUNIRA Sodium Chloride (Sodium Chloride 0.9% 10 Ml Flush Syringe) 10 ml IV PRN PRN PRN Reason: LINE FLUSH Review of Systems All systems: negative Exam - Vital Signs Vital signs: Vital Signs Pulse Resp Pulse Ox 84 19 98 05/19/21 00:37 05/19/21 00:37 05/19/21 00:37 Results - Lab Results 05/19/21 00:37 05/19/21 00:37 Most recent lab results Calcium 8.7 mg/dL (8.4-10.2) 05/19/21 00:37 Assessment and Plan 1. ESRD: On maintenance hemodialysis, TTS schedule. Last outpatient HD 05/16. Meds dosage based on GFR. Hemodialysis: 2. FEN: Monitor lytes and volume status. 3. Malfunctioning AVG // purulent discharge for the dialysis catheter exit site: Plan for angiogram / angioplasty tomorrow by Vascular. 4. DM-2: Lantus and SSI. 5. Hypertension: BP is controlled. Not on any meds. Monitor. Subjective: Patient was seen and examined at the bedside. Objective: General appearance: well-developed, appears stated age, no distress noted HEENT: ATNC, GRANT Neck: trachea midline Respiratory: ctab Heart: regular, S1S2, no murmur Gastrointestinal: soft, normoactive bowel sounds, not tender Integumentary: no rash, warm and dry Ext: no edema Neurologic: alert, some confusion noted, able to move extremities Hemodialysis access: L arm AVG bruit heard, R femoral tunneled catheter
--- NOTE | 2021-05-19 13:12 | Consultation ---
History of Present Illness - Reason for Consult Consult date: 05/19/21 Complications of Dialysis Access Requesting physician: FELIX TRINIDAD - History of Present Illness The patient is a 71-year-old female with a history of end-stage renal disease who had a creation of a left brachial artery to left axillary vein arteriovenous graft on February 08, 2020. She was brought to the emergency department secondary to complaints of purulence at the exit site of her right femoral permacath. After noticing the purulence dialysis was not performed on Thursday and the patient was brought to the emergency department for evaluation. The patient states she has had the permacath for proxy 1 to 2 weeks. She has not noted any complications with the permacath. She states they were unable to use her left arm arteriovenous graft and she believed that it was clotted. She shiva es any recent fever or chills. She denies any prolonged bleeding or additional complications from her left arm AV graft. She has no additional complaints at this time. Past History Past Medical History: diabetes, dialysis, ESRD, GERD, hypertension, stroke (201 3) Past Surgical History: hysterectomy (Partial), Other (Eye surgery, creation of left brachial artery to left axillary vein arteriovenous graft) Social history: no significant social history Family history: no significant family history Medications and Allergies Allergies Allergy/AdvReac Type Severity Reaction Status Date / Time No Known Allergies Allergy Verified 05/23/13 22:50 Home Medications Medication Instructions Recorded Confirmed Last Taken Type Pantoprazole [Protonix TAB] 40 mg PO DAILY #30 tablet 07/15/13 02/21/21 1 Day Ago Rx ~02/20/21 carvediloL [Coreg] 25 mg PO BID #60 tablet 01/20/19 02/21/21 1 Day Ago Rx ~02/20/21 Travatan Z 0.004% 1 drop OU HS 01/27/20 02/21/21 1 Day Ago History ~02/20/21 Aspirin [Aspirin BABY CHEW TAB] 81 mg PO QDAY 02/25/21 02/25/21 02/20/21 History Simvastatin 20 mg PO QHS 02/25/21 02/25/21 02/20/21 History Apixaban [Eliquis] 5 mg PO BID #60 tablet 03/01/21 Unknown Rx Heparin [Heparin 10,000 Units/10 3,000 unit IV TIANNA PRN vial 03/01/21 Unknown Rx ml] Latanoprost 0.005% 1 drops OU QPM #1 bottle 03/01/21 Unknown Rx Docusate Sodium [Colace CAP] 100 mg PO BID #30 capsule 03/07/21 Unknown Rx Active Meds: Active Medications Acetaminophen (Acetaminophen 325 Mg Tab) 650 mg PO Q4H PRN PRN Reason: Pain MILD(1-3)/Fever >100.5/RO Dextrose (Dextrose 10% *Hypoglycemia) 0 ml IV DIRECT PRN; Protocol PRN Reason: Hypoglycemia Heparin Sodium (Porcine) (Heparin 5,000 Unit/1 Ml Vial) 5,000 unit SUB-Q Q8HR MUNIRA Insulin Human Lispro (Insulin Lispro 100 Unit/Ml) 0 unit SUB-Q ACHS [facility]; Protocol Last Admin: 05/19/21 12:33 Dose: Not Given Magnesium Hydroxide (Magnesium Hydroxide (Mom) Oral Liqd Udc) 30 ml PO Q4H PRN PRN Reason: Constipation Morphine Sulfate (Morphine 2 Mg/1 Ml Inj) 2 mg IV Q4H PRN PRN Reason: Pain, Moderate (4-6) Morphine Sulfate (Morphine 4 Mg/1 Ml Inj) 4 mg IV Q4H PRN PRN Reason: Pain , Severe (7-10) Ondansetron HCl (Ondansetron 4 Mg/2 Ml Inj) 4 mg IV Q8H PRN PRN Reason: Nausea And Vomiting Sodium Chloride (Sodium Chloride 0.9% 10 Ml Flush Syringe) 10 ml IV BID [facility] Last Admin: 05/19/21 10:08 Dose: 10 ml Sodium Chloride (Sodium Chloride 0.9% 10 Ml Flush Syringe) 10 ml IV PRN PRN PRN Reason: LINE FLUSH Review of Systems All systems: negative Exam - Constitutional Vitals: Temp Pulse Resp BP Pulse Ox 98.1 F 85 18 143/68 98 05/19/21 11:31 05/19/21 11:31 05/19/21 11:31 05/19/21 11:31 05/19/21 11:31 General appearance: Present: no acute distress - Cardiovascular Rhythm: regular - Extremities Extremities: pulses intact, abnormal (Left arm arteriovenous graft with palpable thrill towards the venous outflow however there is slight pulsatility near the arterial inflow, diffuse ecchymosis surrounding the graft) Extremity abnormal: other (Right femoral permacath without obvious signs of infection) - Abdominal General gastrointestinal: Present: soft, non-tender Female genitourinary: Present: deferred - Rectal Rectal Exam: deferred Results - Labs CBC & Chem 7: 05/19/21 00:37 05/19/21 00:37 Labs: Abnormal lab results 05/19/21 05/19/21 05/19/21 Range/Units 00:37 00:37 00:37 RDW 16.3 H (13.2-15.2) % PT 16.4 H (12.2-14.9) Sec. INR 1.19 H (0.87-1.13) APTT 41.7 H (24.2-36.6) Sec. BUN 44 H (7-17) mg/dL Creatinine 5.8 H (0.6-1.2) mg/dL Glucose 189 H (65-100) mg/dL POC Glucose (70-105) mg/dL 05/19/21 05/19/21 Range/Units 09:15 11:39 RDW (13.2-15.2) % PT (12.2-14.9) Sec. INR (0.87-1.13) APTT (24.2-36.6) Sec. BUN (7-17) mg/dL Creatinine (0.6-1.2) mg/dL Glucose (65-100) mg/dL POC Glucose 157 H 136 H (70-105) mg/dL Assessment and Plan The patient is a 71-year-old female with history of end-stage renal disease who has a left arm arteriovenous graft as well as a right femoral permacath. Dialysis was not performed on Thursday secondary to purulence noted from the exit site of the permacath. The patient does have a palpable thrill in her left arm AV graft with slight pulsatility near the arterial inflow and diffuse ecchymosis around the graft. This would suggest that there was an infiltration which is likely why the graft has not been used. I discussed with the patient the need for a fistulogram of the left arm AV graft with possible intervention. After performed a fistulogram I suspect that the graft will be adequate for cannulation. I discussed the plan with the patient including the risk, benefits, and alternative procedures. The patient expressed understanding and agrees to proceed. She will be made n.p.o. after midnight with the plan for a left fistulogram and angioplasty tomorrow.
[2021-05-19] MEDS: HEPARIN 5,000 UNIT/1 ML VIAL SUB-Q SCH ×2 (14:02→22:35)
--- NOTE | 2021-05-19 17:30 | Event Note ---
Date: 05/19/21 Patient seen and examined 71-year-old female resident of a [facility]dc with h/o ESRD on HD TTS brought into the emergency room for evaluation of a malfunctioning right femoral dialysis catheter who missed her dialysis due to the malfunctioning catheter. Consult has been placed to nephrology and vasculat She will be made n.p.o. after midnight with the plan for a left fistulogram and angioplasty tomorrow by vascular.
[2021-05-20] MEDS: HEPARIN 5,000 UNIT/1 ML VIAL SUB-Q SCH ×2 (06:07→14:30)
[2021-05-20] MEDS ORDERED: HEPARIN 10,000 UNITS/10 ML VIAL IV PRN ×2 (07:56→17:06)
[2021-05-20] MEDS ORDERED: SODIUM CHLORIDE 0.9% 100 ML IV PRN (07:56)
[2021-05-20] MEDS: INSULIN LISPRO 100 UNIT/ML SUB-Q SCH ×4 (08:02→23:06)
[2021-05-20 08:20] LABS: Basophils # (Auto) 0.1 K/mm3 (0.0-0.1); Basophils % (Auto) 0.7 % (0.0-1.8); Eosinophils # (Auto) 0.3 K/mm3 (0.0-0.4); Eosinophils % (Auto) 3.7 % (0.0-4.3); Hematocrit 34.6 % (30.3-42.9); Hemoglobin 11.3 gm/dl (10.1-14.3); Lymphocytes # (Auto) 2.6 K/mm3 (1.2-5.4); Lymphocytes % (Auto) 28.7 % (13.4-35.0); Mean Corpuscular HGB Conc 33 % (30-34); Mean Corpuscular Volume 93 fl (79-97); Monocytes # (Auto) 0.5 K/mm3 (0.0-0.8); Monocytes % (Auto) 5.8 % (0.0-7.3); Platelet Count 280 K/mm3 (140-440); Red Blood Count 3.72 M/mm3 (3.65-5.03); Red Cell Distribution Width 16.5 % (13.2-15.2)
[2021-05-20 08:42] LABS: Calcium 8.9 mg/dL (8.4-10.2)
[2021-05-20] MEDS ORDERED: HEPARIN/NS 5000 UNIT/500ML 500 ML IR ONE (09:52)
[2021-05-20] MEDS ORDERED: LIDOCAINE (2%) 20 MG/1 ML VIAL 20 ML MDV INFILTRATI ONE (09:53)
[2021-05-20] MEDS ORDERED: SODIUM CHLORIDE 0.9% 250ML 250 ML ONE (10:07)
[2021-05-20] MEDS: MIDAZOLAM 2 MG/2 ML INJ ONE ×3 (10:21→10:39)
[2021-05-20] MEDS: fentaNYL 100 MCG/2 ML INJ ONE ×3 (10:22→10:39)
[2021-05-20] MEDS ORDERED: ceFAZolin/Water 2 GM/20 ML 2 GM/20 ML SYRINGE IV ONE (10:23)
--- NOTE | 2021-05-20 11:50 | Progress Note ---
Assessment and Plan 1. ESRD: On maintenance hemodialysis, TTS schedule. Last outpatient HD 05/16. Meds dosage based on GFR. Hemodialysis: 05/20. 2. FEN: Monitor lytes and volume status. 3. Malfunctioning AVG // purulent discharge for the dialysis catheter exit site: S/p angioplasty of AVG and removal of femoral catheter. 4. DM-2: Lantus and SSI. 5. Hypertension: BP is controlled. Not on any meds. Monitor. Subjective: Patient was seen and examined at the bedside. Objective: General appearance: well-developed, appears stated age, no distress noted HEENT: ATNC, GRANT Neck: trachea midline Respiratory: ctab Heart: regular, S1S2, no murmur Gastrointestinal: soft, normoactive bowel sounds, not tender Integumentary: no rash, warm and dry Ext: no edema Neurologic: alert, some confusion noted, able to move extremities Hemodialysis access: L arm AVG bruit heard Subjective Date of service: 05/20/21 Objective - Vital Signs Vital signs: Vital Signs - 12hr 05/20/21 05/20/21 04:29 08:09 Temperature 98.0 F Pulse Rate 91 H Respiratory 18 Rate Blood Pressure 137/70 O2 Sat by Pulse 94 97 Oximetry - Lab 05/20/21 08:00 05/20/21 08:00 Most recent lab results Calcium 8.9 mg/dL (8.4-10.2) 05/20/21 08:00 Medications & Allergies - Medications Allergies/Adverse Reactions: Allergies No Known Allergies Allergy (Verified 05/23/13 22:50) Home Medications: Home Medications Medication Instructions Recorded Confirmed Last Taken Type Pantoprazole [Protonix TAB] 40 mg PO DAILY #30 tablet 07/15/13 02/21/21 1 Day Ago Rx ~02/20/21 carvediloL [Coreg] 25 mg PO BID #60 tablet 01/20/19 02/21/21 1 Day Ago Rx ~02/20/21 Travatan Z 0.004% 1 drop OU HS 01/27/20 02/21/21 1 Day Ago History ~02/20/21 Aspirin [Aspirin BABY CHEW TAB] 81 mg PO QDAY 02/25/21 02/25/21 02/20/21 History Simvastatin 20 mg PO QHS 02/25/21 02/25/21 02/20/21 History Apixaban [Eliquis] 5 mg PO BID #60 tablet 03/01/21 Unknown Rx Heparin [Heparin 10,000 Units/10 3,000 unit IV TIANNA PRN vial 03/01/21 Unknown Rx ml] Latanoprost 0.005% 1 drops OU QPM #1 bottle 03/01/21 Unknown Rx Docusate Sodium [Colace CAP] 100 mg PO BID #30 capsule 03/07/21 Unknown Rx Active Medications: Generic Name Dose Route Start Last Admin Trade Name Freq PRN Reason Stop Dose Admin Acetaminophen 650 mg 05/19/21 03:27 Acetaminophen 325 Mg Tab PO Q4H PRN Pain MILD(1-3)/Fever >100.5/RO Dextrose 0 ml 05/19/21 03:35 Dextrose 10% *Hypoglycemia IV DIRECT PRN Hypoglycemia Protocol Heparin Sodium (Porcine) 5,000 unit 05/19/21 14:00 05/20/21 06:07 Heparin 5,000 Unit/1 Ml Vial SUB-Q 5,000 unit Q8HR MUNIRA Administration Heparin Sodium (Porcine) 3,000 unit 05/20/21 07:56 Heparin 10,000 Units/10 Ml Vial IV TIANNA PRN hemodialysis Sodium Chloride 100 mls @ 999 mls/hr 05/20/21 07:56 Nacl 0.9% IV TIANNA PRN Hypotension Insulin Human Lispro 0 unit 05/19/21 07:30 05/20/21 08:02 Insulin Lispro 100 Unit/Ml SUB-Q Not Given ACHS [facility] Protocol Magnesium Hydroxide 30 ml 05/19/21 03:27 Magnesium Hydroxide (Mom) Oral Liqd Udc PO Q4H PRN Constipation Morphine Sulfate 2 mg 05/19/21 03:27 Morphine 2 Mg/1 Ml Inj IV Q4H PRN Pain, Moderate (4-6) Morphine Sulfate 4 mg 05/19/21 03:27 Morphine 4 Mg/1 Ml Inj IV Q4H PRN Pain , Severe (7-10) Ondansetron HCl 4 mg 05/19/21 03:27 Ondansetron 4 Mg/2 Ml Inj IV Q8H PRN Nausea And Vomiting Sodium Chloride 10 ml 05/19/21 10:00 05/19/21 22:36 Sodium Chloride 0.9% 10 Ml Flush Syringe IV 10 ml BID MUNIRA Administration Sodium Chloride 10 ml 05/19/21 03:27 Sodium Chloride 0.9% 10 Ml Flush Syringe IV PRN PRN LINE FLUSH
--- NOTE | 2021-05-20 13:17 | Post Operative Note ---
Date of procedure: 05/20/21 Pre-op diagnosis: Malfunctioning AV graft, PermCath malfunction Post-op diagnosis: same Findings: Successful angioplasty and thrombectomy of the left arm AV graft. Successful right femoral tunneled cuffed hemodialysis catheter removal Procedure: 1. Ultrasound-guided access of the left arm AV graft towards the venous anastomosis 2. Fistulogram 3. Angioplasty of the AV graft with an 8 mm x 100 mm angioplasty balloon 4. Ultrasound-guided access of the left arm AV graft towards the arterial anastomosis 5. Selection of the brachial artery in a retrograde fashion with angiography of the left upper extremity 6. Steve thrombectomy of the arterial anastomosis to the arterial sheath 7. Angioplasty of the arterial anastomosis with a 6 mm x 40 mm angioplasty balloon 8. Angioplasty of the AV graft with an 8 mm x 40 mm angioplasty balloon 9. [place] thrombectomy of the AV graft 10. Angioplasty of the AV graft with an 8 mm x 100 mm and 8 mm x 40 mm angioplasty balloon 11. Angioplasty of the perianastomotic region around the arterial anastomosis with a 7 mm x 40 mm angioplasty balloon 12. Fluoroscopic guided removal of the right common femoral vein dual-lumen tunneled hemodialysis catheter Anesthesia: local (With conscious sedation) Surgeon: LEXIE SNYDER Estimated blood loss: minimal Condition: stable Disposition: floor
--- NOTE | 2021-05-20 13:17 | Operative Report ---
Operative Report Operative Report: EXAM: 1. Ultrasound-guided access of the left arm AV graft towards the venous anastomosis 2. Fistulogram 3. Angioplasty of the AV graft with an 8 mm x 100 mm angioplasty balloon 4. Ultrasound-guided access of the left arm AV graft towards the arterial anastomosis 5. Selection of the brachial artery in a retrograde fashion with angiography of the left upper extremity 6. Steve thrombectomy of the arterial anastomosis to the arterial sheath 7. Angioplasty of the arterial anastomosis with a 6 mm x 40 mm angioplasty balloon 8. Angioplasty of the AV graft with an 8 mm x 40 mm angioplasty balloon 9. Camp Coordinator thrombectomy of the AV graft 10. Angioplasty of the AV graft with an 8 mm x 100 mm and 8 mm x 40 mm angioplasty balloon 11. Angioplasty of the perianastomotic region around the arterial anastomosis with a 7 mm x 40 mm angioplasty balloon 12. Fluoroscopic guided removal of the right common femoral vein dual-lumen tunneled hemodialysis catheter DATE: 05/20/2021 SPECIAL AGENT: LEXIE SNYDER MD INDICATION: AV graft malfunction and PermCath with purulence who presents for treatment. Patient denies left arm pain, hand pain, sensory dysfunction or motor dysfunction. She denies any history of hand pain, sensory dysfunction, or motor dysfunction. No evidence of ischemic fingers. No wounds on the fingers. MEDICATIONS: Please see nursing report for full details. DEVICES: 8 mm x 100 mm angioplasty balloon 6 mm x 40 mm angioplasty balloon 8 mm x 40 mm angioplasty balloon 7 mm x 40 mm angioplasty balloon Camp Coordinator thrombectomy device Steve thrombectomy catheter PROCEDURE: The risks, benefits, and alternatives of the procedure were discussed and written informed consent was obtained. The patient was transported in stable condition to the angiography suite. The patient's left arm AV graft was assessed by ultrasound and was patent. The patient was prepped and draped in a sterile fashion. Under ultrasound guidance, the left arm AV graft was accessed with a 21-gauge micropuncture needle. The area was anesthetized prior to access. 0.018 inch wire was advanced through the micropuncture needle into the graft and then the needle was exchanged for a 5 Brazilian transitional dilator. The inner dilator and wire were removed and a 0.035 inch wire was advanced towards the venous anastomosis. The transitional dilator was exchanged for a 7 Brazilian short sheath. Fistulogram was performed of the venous outflow and central veins. Reflux into the arterial anastomosis was performed. Digital subtraction angiography demonstrates 60% stenosis at the arterial anastomosis which some nonocclusive thrombus at this location. There is diffuse narrowing throughout the graft with 50 diffuse stenosis with superimposed areas of 80% stenosis. The stent is in the distal portion of the graft is patent. The stent in the venous outflow is patent. The left subclavian vein, innominate vein, and SVC are patent. 8 mm x 100 mm angioplasty balloon was used to perform angioplasty of the distal and midportion of the graft. There is less than 20% residual narrowing. Under ultrasound guidance, the left arm AV graft was accessed with a 21-gauge micropuncture needle. The area was anesthetized prior to access. 0.018 inch wire was advanced through the micropuncture needle into the graft and then the needle was exchanged for a 5 Brazilian transitional dilator. The inner dilator and wire were removed and a 0.035 inch wire was advanced through the arterial anastomosis. The transitional dilator was exchanged for a 7 Brazilian short sheath. Wire and catheter were then used to select the brachial artery in a retrograde fashion. Digital subtraction angiography was performed demonstrating patency of the brachial artery proximal and distal to the anastomosis. 6 mm x 40 mm angioplasty balloon was then used at the arterial anastomosis and 8 mm x 40 mm angioplasty balloon was used at the rest of the proximal portion of the graft. Digital subtraction angiography was performed demonstrating the 50% narrowing in the distal portion of the graft which I suspect was some thrombus which fell to this location. Camp Coordinator thrombectomy device was then used to perform thrombectomy of the distal portion of the graft. Afterwards, wire and catheter used to select the brachial artery in a retrograde fashion and a Steve thrombectomy catheter was used to perform thrombectomy from the artery to the arterial sheath. Repeat angioplasty was performed of the entirety of the of the graft with an 8 mm angioplasty balloon with use of both the 8 x 40 and 8 x 100 mm angioplasty balloon. There is still a flow-limiting issue at the arterial anastomosis and the graft did not have a strong thrill. I used a 7 mm x 40 mm angioplasty balloon and then was able to open up the narrowing at the arterial anastomosis. At this point there is now a strong thrill throughout the graft. All wires, catheters, and sheaths were removed. Sites were closed with 3-0 Vicryl and hemostasis was achieved with mild compression. Sterile dressings applied. The right femoral tunneled catheter was prepped and draped in a sterile fashion. Lidocaine was infiltrated at the dermatotomy site. Heparin was withdrawn from both lumens. Using a hemostat, blunt dissection was performed and the cuff was extracted under fluoroscopic guidance. The catheter was extracted under fluoroscopic guidance and pressure was held at the venotomy and dermatotomy site until hemostasis was achieved. Sterile bandage was then applied. The patient tolerated the procedure without issue. FINDINGS: Please see procedure note above IMPRESSION: Successful percutaneous mechanical thrombectomy of the left arm AV graft with peripheral dialysis access angioplasty. Successful selection of the brachial artery in a retrograde fashion with angiography of the left upper extremity. Successful fluoroscopic guided removal of the right femoral tunneled cuffed dual-lumen hemodialysis catheter.
--- NOTE | 2021-05-20 17:08 | Discharge Summary ---
Providers - Providers Date of Admission: 05/19/21 03:27 Date of discharge: 05/20/21 Attending physician: BEN BOWLES 05/19/21 02:06 Consult to Physician [CONS] Urgent Comment: Consulting Provider: FELIX TRINIDAD Physician Instructions: Reason For Exam: esrd needing dialysis 05/19/21 02:07 Consult to Physician [CONS] Urgent Comment: Consulting Provider: IAN URRUTIA Physician Instructions: Reason For Exam: esrd needing access 05/19/21 03:27 Consult to Dietitian/Nutrition [CONS] Routine Physician Instructions: Reason For Exam: Reason for Consult: Diet education Primary care physician: FREELANCE MAKEUP ARTIST Hospitalization Condition: Stable Disposition: 03 HALFWAY FACILITY Final Discharge Diagnosis (Prints w/discharge instructions): --End-stage renal disease. --Malfunctioning AV graft Time spent for discharge: 34 minutes Exam - Constitutional Vitals: Temp Pulse Resp BP Pulse Ox 98.0 F 91 H 18 137/70 97 05/20/21 04:29 05/20/21 04:29 05/20/21 04:29 05/20/21 04:29 05/20/21 08:09 Plan Activity: fall precautions Diet: renal Follow up with: PRIMARY CAREMD [Primary Care Provider] - 3-5 Days
[2021-05-20 17:50] LABS: Hepatitis B Surface Antigen Non-Reactive (Negative); Hepatitis C Virus Antibody Non-Reactive (NonReactive)
[2021-05-20] MEDS ORDERED: NON-FORMULARY EACH (Apixaban 5 MG Tablet) PO SCH (22:00)
[2021-05-20] MEDS ORDERED: NON-FORMULARY EACH (Simvastatin [Simvastatin] 20 MG Tablet) PO SCH (22:00)
[2021-05-20] MEDS ORDERED: APIXABAN 5 MG TAB PO SCH (22:00)
[2021-05-20] MEDS ORDERED: TRAVATAN Z 0.004% OU SCH (22:00)
[2021-05-20] MEDS: DOCUSATE SODIUM 100 MG CAP PO SCH (23:05)
[2021-05-20] MEDS: PRAVASTATIN 40 MG TAB PO SCH (23:05)
[2021-05-21] MEDS: LATANOPROST 0.005% OPHTH SOLN 2.5 ML OU SCH ×2 (07:28→18:48)
--- NOTE | 2021-05-21 08:34 | Progress Note ---
History Interval history: Malfunctioning AV graft permacath malfunction status post successful angioplasty and thrombectomy of the left arm AV graft Successful right femoral tunneled cuffed hemodialysis catheter removal 05/20/2019 Hospitalist Physical - Constitutional Vitals: Temp Pulse Resp BP Pulse Ox 98.3 F 97 H 16 97/56 96 05/20/21 21:27 05/20/21 21:27 05/20/21 21:27 05/20/21 21:27 05/20/21 21: General appearance: Present: no acute distress Results - Labs CBC & Chem 7: 05/20/21 08:00 05/20/21 08:00 Labs: Laboratory Last Values WBC 9.0 K/mm3 (4.5-11.0) 05/20/21 08:00 RBC 3.72 M/mm3 (3.65-5.03) 05/20/21 08:00 Hgb 11.3 gm/dl (10.1-14.3) 05/20/21 08:00 Hct 34.6 % (30.3-42.9) 05/20/21 08:00 MCV 93 fl (79-97) 05/20/21 08:00 MCH 30 pg (28-32) 05/20/21 08:00 MCHC 33 % (30-34) 05/20/21 08:00 RDW 16.5 % (13.2-15.2) H 05/20/21 08:00 Plt Count 280 K/mm3 (140-440) 05/20/21 08:00 Lymph % (Auto) 28.7 % (13.4-35.0) 05/20/21 08:00 [place] % (Auto) 5.8 % (0.0-7.3) 05/20/21 08:00 Eos % (Auto) 3.7 % (0.0-4.3) 05/20/21 08:00 Baso % (Auto) 0.7 % (0.0-1.8) 05/20/21 08:00 Lymph # (Auto) 2.6 K/mm3 (1.2-5.4) 05/20/21 08:00 [place] # (Auto) 0.5 K/mm3 (0.0-0.8) 05/20/21 08:00 Eos # (Auto) 0.3 K/mm3 (0.0-0.4) 05/20/21 08:00 Baso # (Auto) 0.1 K/mm3 (0.0-0.1) 05/20/21 08:00 Seg Neutrophils % 61.1 % (40.0-70.0) 05/20/21 08:00 Seg Neutrophils # 5.5 K/mm3 (1.8-7.7) 05/20/21 08:00 PT 16.4 Sec. (12.2-14.9) H 05/19/21 00:37 INR 1.19 (0.87-1.13) H 05/19/21 00:37 APTT 41.7 Sec. (24.2-36.6) H 05/19/21 00:37 Sodium 138 mmol/L (137-145) 05/20/21 08:00 Potassium 5.1 mmol/L (3.6-5.0) H 05/20/21 08:00 Chloride 101.8 mmol/L (98-107) 05/20/21 08:00 Carbon Dioxide 19 mmol/L (22-30) L 05/20/21 08:00 Anion Gap 22 mmol/L 05/20/21 08:00 BUN 59 mg/dL (7-17) H 05/20/21 08:00 Creatinine 5.9 mg/dL (0.6-1.2) H 05/20/21 08:00 Estimated GFR 9 ml/min 05/20/21 08:00 BUN/Creatinine Ratio 10 % 05/20/21 08:00 Glucose 126 mg/dL (65-100) H 05/20/21 08:00 POC Glucose 129 mg/dL (70-105) H 05/21/21 07:43 Calcium 8.9 mg/dL (8.4-10.2) 05/20/21 08:00 Hepatitis A IgM Ab Non-reactive (NonReactive) 05/20/21 08:00 Hep Bs Antigen Non-reactive (Negative) 05/20/21 08:00 Hep B Core IgM Ab Non-reactive (NonReactive) 05/20/21 08:00 Hepatitis C Antibody Non-reactive (NonReactive) 05/20/21 08:00 Microbiology: Microbiology 05/19/21 02:21 Peripheral/Venous Blood Culture - Preliminary NO GROWTH AFTER 48 HOURS 05/19/21 02:14 Peripheral/Venous Blood Culture - Preliminary NO GROWTH AFTER 48 HOURS New/IV: Voiding Method External Female Catheter Active Medications - Current Medications Current Medications: Generic Name Dose Route Start Last Admin Trade Name Freq PRN Reason Stop Dose Admin Acetaminophen 650 mg 05/19/21 03:27 Acetaminophen 325 Mg Tab PO Q4H PRN Pain MILD(1-3)/Fever >100.5/RO Apixaban 5 mg 05/21/21 10:00 Apixaban 5 Mg Tab PO Q12HR [facility] Protocol Aspirin 81 mg 05/21/21 10:00 Aspirin 81 Mg Tab Chew PO QDAY [facility] Dextrose 0 ml 05/19/21 03:35 Dextrose 10% *Hypoglycemia IV DIRECT PRN Hypoglycemia Protocol Docusate Sodium 100 mg 05/20/21 22:00 05/20/21 23:05 Docusate Sodium 100 Mg Cap PO 100 mg BID [facility] Administration Heparin Sodium (Porcine) 3,000 unit 05/20/21 07:56 Heparin 10,000 Units/10 Ml Vial IV TIANNA PRN hemodialysis Sodium Chloride 100 mls @ 999 mls/hr 05/20/21 07:56 Nacl 0.9% IV TIANNA PRN Hypotension Insulin Human Lispro 0 unit 05/19/21 07:30 05/20/21 23:06 Insulin Lispro 100 Unit/Ml SUB-Q 3 unit ACHS [facility] Administration Protocol Latanoprost 1 drops 05/20/21 20:00 05/21/21 07:28 Latanoprost 0.005% Ophth Soln 2.5 Ml OU Not Given QPM [facility] Magnesium Hydroxide 30 ml 05/19/21 03:27 Magnesium Hydroxide (Mom) Oral Liqd Udc PO Q4H PRN Constipation Morphine Sulfate 2 mg 05/19/21 03:27 Morphine 2 Mg/1 Ml Inj IV Q4H PRN Pain, Moderate (4-6) Morphine Sulfate 4 mg 05/19/21 03:27 Morphine 4 Mg/1 Ml Inj IV Q4H PRN Pain , Severe (7-10) Ondansetron HCl 4 mg 05/19/21 03:27 Ondansetron 4 Mg/2 Ml Inj IV Q8H PRN Nausea And Vomiting Pantoprazole Sodium 40 mg 05/21/21 10:00 Pantoprazole 40 Mg Tab PO DAILY [facility] Pravastatin Sodium 40 mg 05/20/21 22:00 05/20/21 23:05 Pravastatin 40 Mg Tab PO 40 mg QHS MUNIRA Administration Sodium Chloride 10 ml 05/19/21 10:00 05/20/21 23:08 Sodium Chloride 0.9% 10 Ml Flush Syringe IV 10 ml BID MUNIRA Administration Sodium Chloride 10 ml 05/19/21 03:27 Sodium Chloride 0.9% 10 Ml Flush Syringe IV PRN PRN LINE FLUSH Nutrition/Malnutrition Assess - Dietary Evaluation Nutrition/Malnutrition Findings: Nutrition Notes Start: 05/19/21 15:23 Freq: Status: Active Protocol: Document 05/19/21 15:23 CAROLINE (Rec: 05/19/21 15:35 CAROLINE [id number]) Nutrition Notes Need for Assessment generated from: MD Order,Education Initial or Follow up Brief Note Current Diagnosis CKD (stage V CKD),Diabetes, Hypertension,Stroke Other Pertinent Diagnosis Femoral Dialysis Cathter malfunction, ESRD+HD, GERD. Current Diet Cardiac/Consistent Carbohydrates Diet (B 05/19), NPO (05/20 00:01). Height 5 ft 1 in Weight 90.718 kg [place] Body Weight (kg) 47.72 BMI 37.8 Intake Prior to Admission Good Weight change and time frame Pt states not having loss body weight [employer]. Weight Status Obese Subjective/Other Information RD consult for Nutrition Education. No reports available on Pt's PO intake of meals at the time . Pt lives on SNF. Pt still on critical conditions, not a candidate for Nutrition Education at the time, will assess feasibility on F/U. Percent of energy/protein needs met: Prescribed Cardiac/Consistent Carbohydrates Diet provides for energy/protein needs (1, 977 Kcal/86 g) during LOS. Nutrition Intervention Follow-Up By: 05/24/21 Additional Comments Nutrition education will be provided on F/U, if feasible. Continue monitoring food tolerance, %PO intake of meals , and BM.
--- NOTE | 2021-05-21 08:35 | Progress Note ---
Assessment and Plan Assessment and plan: Initially patient was supposed to be discharged home with patient's son with home health, as plans are being made for discharge Case management reports that patient is returning to [facility], pending authorization from insurance. We will hold discharge, Continue current management. Covid test prior to discharge if needed DC planning per case management --Malfunctioning AV graft/permacath malfunctioning Vascular evaluated the patient, status post successful angioplasty and thrombectomy of the left arm AV graft Successful right femoral tunneled cuffed hemodialysis catheter removal 05/20/2019 Hemodialysis per schedule TTS -- ESRD (end stage renal disease) on dialysis Nephrology following, patient had hemodialysis 05/20/2021 Patient gets dialysis on Tuesdays, and Saturdays. Outpatient dialysis schedule is confirmed by CM -- Diabetes mellitus Moderate control, Accu-Cheks sliding scale coverage ADA diet Insulin as needed --HTN (hypertension) Moderate control, continue current antihypertensives As needed labetalol -- DVT prophylaxis Patient placed on subcutaneous heparin. -- Full code status Patient is full code. We will closely monitor the patient and adjust management as needed Plan of care reviewed with the patient, her nurse and case management Patient is medically stable for discharge Pending insurance authorization C planning per case management History Interval history: I seen and examined the patient at the bedside Patient's chart and medications reviewed No new events reported by the nursing Vital signs noted Hospitalist Physical - Constitutional Vitals: Temp Pulse Resp BP Pulse Ox 98.3 F 97 H 16 97/56 96 05/20/21 21:27 05/20/21 21:27 05/20/21 21:27 05/20/21 21:27 05/20/21 21:27 General appearance: Present: no acute distress, well-nourished, obese - EENT Eyes: Present: PERRL, EOM intact - Neck Neck: Present: supple, normal ROM - Respiratory Respiratory effort: normal Respiratory: bilateral: diminished, negative: rales, rhonchi, wheezing - Cardiovascular Rhythm: regular Heart Sounds: Present: S1 & S2 - Extremities Extremities: no ischemia, No edema Extremity abnormal: other (AV graft wound dressing in place) - Abdominal General gastrointestinal: soft, non-tender, non-distended, normal bowel sounds - Integumentary Integumentary: Present: clear, warm - Psychiatric Psychiatric: appropriate mood/affect, cooperative - Neurologic Neurologic: CNII-XII intact, moves all extremities Results - Labs CBC & Chem 7: 05/20/21 08:00 05/20/21 08:00 Labs: Laboratory Last Values WBC 9.0 K/mm3 (4.5-11.0) 05/20/21 08:00 RBC 3.72 M/mm3 (3.65-5.03) 05/20/21 08:00 Hgb 11.3 gm/dl (10.1-14.3) 05/20/21 08:00 Hct 34.6 % (30.3-42.9) 05/20/21 08:00 MCV 93 fl (79-97) 05/20/21 08:00 MCH 30 pg (28-32) 05/20/21 08:00 MCHC 33 % (30-34) 05/20/21 08:00 RDW 16.5 % (13.2-15.2) H 05/20/21 08:00 Plt Count 280 K/mm3 (140-440) 05/20/21 08:00 Lymph % (Auto) 28.7 % (13.4-35.0) 05/20/21 08:00 Carroll % (Auto) 5.8 % (0.0-7.3) 05/20/21 08:00 Eos % (Auto) 3.7 % (0.0-4.3) 05/20/21 08:00 Baso % (Auto) 0.7 % (0.0-1.8) 05/20/21 08:00 Lymph # (Auto) 2.6 K/mm3 (1.2-5.4) 05/20/21 08:00 Carroll # (Auto) 0.5 K/mm3 (0.0-0.8) 05/20/21 08:00 Eos # (Auto) 0.3 K/mm3 (0.0-0.4) 05/20/21 08:00 Baso # (Auto) 0.1 K/mm3 (0.0-0.1) 05/20/21 08:00 Seg Neutrophils % 61.1 % (40.0-70.0) 05/20/21 08:00 Seg Neutrophils # 5.5 K/mm3 (1.8-7.7) 05/20/21 08:00 PT 16.4 Sec. (12.2-14.9) H 05/19/21 00:37 INR 1.19 (0.87-1.13) H 05/19/21 00:37 APTT 41.7 Sec. (24.2-36.6) H 05/19/21 00:37 Sodium 138 mmol/L (137-145) 05/20/21 08:00 Potassium 5.1 mmol/L (3.6-5.0) H 05/20/21 08:00 Chloride 101.8 mmol/L (98-107) 05/20/21 08:00 Carbon Dioxide 19 mmol/L (22-30) L 05/20/21 08:00 Anion Gap 22 mmol/L 05/20/21 08:00 BUN 59 mg/dL (7-17) H 05/20/21 08:00 Creatinine 5.9 mg/dL (0.6-1.2) H 05/20/21 08:00 Estimated GFR 9 ml/min 05/20/21 08:00 BUN/Creatinine Ratio 10 % 05/20/21 08:00 Glucose 126 mg/dL (65-100) H 05/20/21 08:00 POC Glucose 129 mg/dL (70-105) H 05/21/21 07:43 Calcium 8.9 mg/dL (8.4-10.2) 05/20/21 08:00 Hepatitis A IgM Ab Non-reactive (NonReactive) 05/20/21 08:00 Hep Bs Antigen Non-reactive (Negative) 05/20/21 08:00 Hep B Core IgM Ab Non-reactive (NonReactive) 05/20/21 08:00 Hepatitis C Antibody Non-reactive (NonReactive) 05/20/21 08:00 Microbiology: Microbiology 05/19/21 02:21 Peripheral/Venous Blood Culture - Preliminary NO GROWTH AFTER 48 HOURS 05/19/21 02:14 Peripheral/Venous Blood Culture - Preliminary NO GROWTH AFTER 48 HOURS New/IV: Voiding Method External Female Catheter Active Medications - Current Medications Current Medications: Generic Name Dose Route Start Last Admin Trade Name Freq PRN Reason Stop Dose Admin Acetaminophen 650 mg 05/19/21 03:27 Acetaminophen 325 Mg Tab PO Q4H PRN Pain MILD(1-3)/Fever >100.5/RO Apixaban 5 mg 05/21/21 10:00 Apixaban 5 Mg Tab PO Q12HR [facility] Protocol Aspirin 81 mg 05/21/21 10:00 Aspirin 81 Mg Tab Chew PO QDAY MUNIRA Dextrose 0 ml 05/19/21 03:35 Dextrose 10% *Hypoglycemia IV DIRECT PRN Hypoglycemia Protocol Docusate Sodium 100 mg 05/20/21 22:00 05/20/21 23:05 Docusate Sodium 100 Mg Cap PO 100 mg BID MUNIRA Administration Heparin Sodium (Porcine) 3,000 unit 05/20/21 07:56 Heparin 10,000 Units/10 Ml Vial IV TIANNA PRN hemodialysis Sodium Chloride 100 mls @ 999 mls/hr 05/20/21 07:56 Nacl 0.9% IV TIANNA PRN Hypotension Insulin Human Lispro 0 unit 05/19/21 07:30 05/20/21 23:06 Insulin Lispro 100 Unit/Ml SUB-Q 3 unit ACHS MUNIRA Administration Protocol Latanoprost 1 drops 05/20/21 20:00 05/21/21 07:28 Latanoprost 0.005% Ophth Soln 2.5 Ml OU Not Given QPM [facility] Magnesium Hydroxide 30 ml 05/19/21 03:27 Magnesium Hydroxide (Mom) Oral Liqd Udc PO Q4H PRN Constipation Morphine Sulfate 2 mg 05/19/21 03:27 Morphine 2 Mg/1 Ml Inj IV Q4H PRN Pain, Moderate (4-6) Morphine Sulfate 4 mg 05/19/21 03:27 Morphine 4 Mg/1 Ml Inj IV Q4H PRN Pain , Severe (7-10) Ondansetron HCl 4 mg 05/19/21 03:27 Ondansetron 4 Mg/2 Ml Inj IV Q8H PRN Nausea And Vomiting Pantoprazole Sodium 40 mg 05/21/21 10:00 Pantoprazole 40 Mg Tab PO DAILY [facility] Pravastatin Sodium 40 mg 05/20/21 22:00 05/20/21 23:05 Pravastatin 40 Mg Tab PO 40 mg QHS MUNIRA Administration Sodium Chloride 10 ml 05/19/21 10:00 05/20/21 23:08 Sodium Chloride 0.9% 10 Ml Flush Syringe IV 10 ml BID MUNIRA Administration Sodium Chloride 10 ml 05/19/21 03:27 Sodium Chloride 0.9% 10 Ml Flush Syringe IV PRN PRN LINE FLUSH Nutrition/Malnutrition Assess - Dietary Evaluation Nutrition/Malnutrition Findings: Nutrition Notes Start: 05/19/21 15:23 Freq: Status: Active Protocol: Document 05/19/21 15:23 CAROLINE (Rec: 05/19/21 15:35 CAROLINE [id number]) Nutrition Notes Need for Assessment generated from: MD Order,Education Initial or Follow up Brief Note Current Diagnosis CKD (stage V CKD),Diabetes, Hypertension,Stroke Other Pertinent Diagnosis Femoral Dialysis Cathter malfunction, ESRD+HD, GERD. Current Diet Cardiac/Consistent Carbohydrates Diet (B 05/19), NPO (05/20 00:01). Height 5 ft 1 in Weight 90.718 kg Blain Body Weight (kg) 47.72 BMI 37.8 Intake Prior to Admission Good Weight change and time frame Pt states not having loss body weight [employer]. Weight Status Obese Subjective/Other Information RD consult for Nutrition Education. No reports available on Pt's PO intake of meals at the time . Pt lives on SNF. Pt still on critical conditions, not a candidate for Nutrition Education at the time, will assess feasibility on F/U. Percent of energy/protein needs met: Prescribed Cardiac/Consistent Carbohydrates Diet provides for energy/protein needs (1, 977 Kcal/86 g) during LOS. Nutrition Intervention Follow-Up By: 05/24/21 Additional Comments Nutrition education will be provided on F/U, if feasible. Continue monitoring food tolerance, %PO intake of meals , and BM.
[2021-05-21] MEDS: INSULIN LISPRO 100 UNIT/ML SUB-Q SCH ×4 (08:54→21:57)
[2021-05-21] MEDS: ASPIRIN 81 MG TAB CHEW PO SCH (09:00)
[2021-05-21] MEDS: PANTOPRAZOLE 40 MG TAB PO SCH (09:00)
[2021-05-21] MEDS: APIXABAN 5 MG TAB PO SCH ×2 (09:00→21:11)
[2021-05-21] MEDS: DOCUSATE SODIUM 100 MG CAP PO SCH ×2 (09:00→21:11)
--- NOTE | 2021-05-21 09:56 | Progress Note ---
Assessment and Plan 1. ESRD: On maintenance hemodialysis, TTS schedule. Last outpatient HD 05/16. Meds dosage based on GFR. Hemodialysis: 05/20. 2. FEN: Monitor lytes and volume status. 3. Malfunctioning AVG // purulent discharge from the dialysis catheter exit site: S/p angioplasty of AVG and removal of femoral catheter. 4. DM-2: Lantus and SSI. 5. Hypertension: BP is controlled. Not on any meds. Monitor. Subjective: Patient was seen and examined at the bedside. Objective: General appearance: well-developed, appears stated age, no distress noted HEENT: ATNC, GRANT Neck: trachea midline Respiratory: ctab Heart: regular, S1S2, no murmur Gastrointestinal: soft, normoactive bowel sounds, not tender Integumentary: no rash, warm and dry Ext: no edema Neurologic: alert, some confusion noted, able to move extremities Hemodialysis access: L arm AVG bruit heard Subjective Date of service: 05/21/21 Objective - Vital Signs Vital signs: Vital Signs - 12hr 05/21/21 08:00 Respiratory 18 Rate O2 Sat by Pulse 96 Oximetry - Lab 05/20/21 08:00 05/20/21 08:00 Most recent lab results Calcium 8.9 mg/dL (8.4-10.2) 05/20/21 08:00 Medications & Allergies - Medications Allergies/Adverse Reactions: Allergies No Known Allergies Allergy (Verified 05/23/13 22:50) Home Medications: Home Medications Medication Instructions Recorded Confirmed Last Taken Type RX: Pantoprazole [Protonix TAB] 40 mg PO DAILY #30 tablet 07/15/13 02/21/21 1 Day Ago Rx ~02/20/21 RX: carvediloL [Coreg] 25 mg PO BID #60 tablet 01/20/19 02/21/21 1 Day Ago Rx ~02/20/21 Travatan Z 0.004% 1 drop OU HS 01/27/20 02/21/21 1 Day Ago History ~02/20/21 RX: Aspirin [Aspirin BABY CHEW TAB] 81 mg PO QDAY 02/25/21 02/25/21 02/20/21 History RX: Simvastatin 20 mg PO QHS 02/25/21 02/25/21 02/20/21 History RX: Apixaban [Eliquis] 5 mg PO BID #60 tablet 03/01/21 Unknown Rx RX: Heparin [Heparin 10,000 3,000 unit IV TIANNA PRN vial 03/01/21 Unknown Rx Units/10 ml] RX: Latanoprost 0.005% 1 drops OU QPM #1 bottle 03/01/21 Unknown Rx RX: Docusate Sodium [Colace CAP] 100 mg PO BID #30 capsule 03/07/21 Unknown Rx Active Medications: Generic Name Dose Route Start Last Admin Trade Name Freq PRN Reason Stop Dose Admin Acetaminophen 650 mg 05/19/21 03:27 Acetaminophen 325 Mg Tab PO Q4H PRN Pain MILD(1-3)/Fever >100.5/RO Apixaban 5 mg 05/21/21 10:00 05/21/21 09:00 Apixaban 5 Mg Tab PO 5 mg Q12HR MUNIRA Administration Protocol Aspirin 81 mg 05/21/21 10:00 05/21/21 09:00 Aspirin 81 Mg Tab Chew PO 81 mg QDAY MUNIRA Administration Dextrose 0 ml 05/19/21 03:35 Dextrose 10% *Hypoglycemia IV DIRECT PRN Hypoglycemia Protocol Docusate Sodium 100 mg 05/20/21 22:00 05/21/21 09:00 Docusate Sodium 100 Mg Cap PO 100 mg BID MUNIRA Administration Heparin Sodium (Porcine) 3,000 unit 05/20/21 07:56 Heparin 10,000 Units/10 Ml Vial IV TIANNA PRN hemodialysis Sodium Chloride 100 mls @ 999 mls/hr 05/20/21 07:56 Nacl 0.9% IV TIANNA PRN Hypotension Insulin Human Lispro 0 unit 05/19/21 07:30 05/21/21 08:54 Insulin Lispro 100 Unit/Ml SUB-Q Not Given ACHS [facility] Protocol Latanoprost 1 drops 05/20/21 20:00 05/21/21 07:28 Latanoprost 0.005% Ophth Soln 2.5 Ml OU Not Given QPM [facility] Magnesium Hydroxide 30 ml 05/19/21 03:27 Magnesium Hydroxide (Mom) Oral Liqd Udc PO Q4H PRN Constipation Morphine Sulfate 2 mg 05/19/21 03:27 Morphine 2 Mg/1 Ml Inj IV Q4H PRN Pain, Moderate (4-6) Morphine Sulfate 4 mg 05/19/21 03:27 Morphine 4 Mg/1 Ml Inj IV Q4H PRN Pain , Severe (7-10) Ondansetron HCl 4 mg 05/19/21 03:27 Ondansetron 4 Mg/2 Ml Inj IV Q8H PRN Nausea And Vomiting Pantoprazole Sodium 40 mg 05/21/21 10:00 05/21/21 09:00 Pantoprazole 40 Mg Tab PO 40 mg DAILY MUNIRA Administration Pravastatin Sodium 40 mg 05/20/21 22:00 05/20/21 23:05 Pravastatin 40 Mg Tab PO 40 mg QHS MUNIRA Administration Sodium Chloride 10 ml 05/19/21 10:00 05/21/21 09:00 Sodium Chloride 0.9% 10 Ml Flush Syringe IV 10 ml BID MUNIRA Administration Sodium Chloride 10 ml 05/19/21 03:27 Sodium Chloride 0.9% 10 Ml Flush Syringe IV PRN PRN LINE FLUSH
--- NOTE | 2021-05-21 15:07 | Discharge Summary ---
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 Oakes and Ms. Castillo, outpatient HD already set up, discharge needs addressed, initially plans are made to DC the patient Home with the son. Later CM Ms. Oakes called me back and notified that the patient will not be going home with the son. Instead patient will be returning to assisted, pending authorization and possible Covid test prior to discharge -Malfunctioning AV graft/permacath malfunctioning Vascular evaluated the patient, status post successful angioplasty and thrombectomy of the left arm AV graft Successful right femoral tunneled cuffed hemodialysis catheter removal 05/20/2019 -- ESRD (end stage renal disease) on dialysis Nephrology following, patient had hemodialysis 05/20/2021 Patient gets dialysis on Tuesdays, and Saturdays. -- Diabetes mellitus Patient placed on sliding scale insulin. We will monitor Accu-Cheks closely. --HTN (hypertension) We will resume routine home medications once reconciled and monitor vital signs closely. -- DVT prophylaxis Patient placed on subcutaneous heparin. -- Full code status Patient is full code. Malfunctioning AV graft Disposition: 03 SNF FACILITY Core Measure Documentation - Palliative Care Palliative Care/ Comfort Measures: Not Applicable - Core Measures Any of the following diagnoses?: none Exam - Constitutional Vitals: Temp Pulse Resp BP Pulse Ox 98.7 F 95 H 18 93/52 96 05/21/21 11:17 05/21/21 04:42 05/21/21 11:17 05/21/21 11:17 05/21/21 08:00 General appearance: Present: no acute distress, well-nourished - EENT Eyes: Present: PERRL, EOM intact - Neck Neck: Present: supple, normal ROM - Respiratory Respiratory effort: normal Respiratory: bilateral: diminished, negative: rales, rhonchi, wheezing - Cardiovascular Rhythm: regular Heart Sounds: Present: S1 & S2 - Extremities Extremities: no ischemia, No edema - Abdominal General gastrointestinal: Present: soft, non-tender, non-distended, normal bowel sounds - Integumentary Integumentary: Present: clear, warm - Musculoskeletal Musculoskeletal: generalized weakness - Psychiatric Psychiatric: appropriate mood/affect, cooperative - Neurologic Neurologic: moves all extremities Plan Activity: advance as tolerated, fall precautions Diet: renal Additional Instructions: Follow renal per schedule TTS. You have worsening symptoms contact MD or go to the nearest emergency room. Advised to follow primary care physician in 5 to 7 days Follow up with: PRIMARY CAREMD [Primary Care Provider] - 3-5 Days
[2021-05-21] MEDS: PRAVASTATIN 40 MG TAB PO SCH (21:12)
--- NOTE | 2021-05-22 07:35 | Discharge Summary ---
Providers - Providers Date of Admission: 05/19/21 03:27 Date of discharge: 05/22/21 Attending physician: MICHEL ANGEL 05/19/21 02:06 Consult to Physician [CONS] Urgent Comment: Consulting Provider: FELIX TRINIDAD Physician Instructions: Reason For Exam: esrd needing dialysis 05/19/21 02:07 Consult to Physician [CONS] Urgent Comment: Consulting Provider: IAN URRUTIA Physician Instructions: Reason For Exam: esrd needing access 05/19/21 03:27 Consult to Dietitian/Nutrition [CONS] Routine Physician Instructions: Reason For Exam: Reason for Consult: Diet education 05/21/21 16:16 Occupational Therapy Evaluate and Treat [CONS] Stat Comment: Reason For Exam: eval and treat Physical Therapy Evaluation and Treat [CONS] Stat Comment: Reason For Exam: eval and treat 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 Hospitalization Condition: Stable Disposition: 03 [facility] FACILITY Core Measure Documentation - Palliative Care Palliative Care/ Comfort Measures: Not Applicable - Core Measures Any of the following diagnoses?: none Exam - Constitutional Vitals: Temp Pulse Resp BP Pulse Ox 97.4 F L 85 16 148/72 97 05/22/21 04:43 05/22/21 04:43 05/22/21 04:43 05/22/21 04:43 05/22/21 04:43 General appearance: Present: no acute distress, well-nourished, obese - EENT Eyes: Present: PERRL, EOM intact - Neck Neck: Present: supple, normal ROM - Respiratory Respiratory effort: normal Respiratory: bilateral: diminished, negative: rales, rhonchi, wheezing - Cardiovascular Rhythm: regular Heart Sounds: Present: S1 & S2 - Extremities Extremities: no ischemia, No edema - Abdominal General gastrointestinal: Present: soft, non-tender, non-distended, normal bowel sounds - Integumentary Integumentary: Present: clear, warm - Musculoskeletal Musculoskeletal: strength equal bilaterally - Psychiatric Psychiatric: appropriate mood/affect, cooperative Plan Activity: advance as tolerated, fall precautions Diet: renal Additional Instructions: Follow renal, hemodialysis per schedule TTS. You have worsening symptoms contact MD or go to the nearest emergency room. Fall precautions, advised to comply with medications diet and follow-up visits Follow up with: ADILENE LAW MD [Primary Care Provider] - 3-5 Days FELIX TRINIDAD MD [Staff Physician] - 7 Days
[2021-05-22] MEDS: INSULIN LISPRO 100 UNIT/ML SUB-Q SCH ×4 (08:30→21:49)
[2021-05-22] MEDS: DOCUSATE SODIUM 100 MG CAP PO SCH ×2 (09:51→21:50)
[2021-05-22] MEDS: ASPIRIN 81 MG TAB CHEW PO SCH (09:51)
[2021-05-22] MEDS: PANTOPRAZOLE 40 MG TAB PO SCH (09:51)
[2021-05-22] MEDS: APIXABAN 5 MG TAB PO SCH ×2 (09:51→21:50)
--- NOTE | 2021-05-22 10:13 | Progress Note ---
Assessment and Plan 1. ESRD: On maintenance hemodialysis, TTS schedule. Last outpatient HD 05/16. Meds dosage based on GFR. Hemodialysis: 05/20. 2. FEN: Monitor lytes and volume status. 3. Malfunctioning AVG // purulent discharge from the dialysis catheter exit site: S/p angioplasty of AVG and removal of femoral catheter. 4. DM-2: Lantus and SSI. 5. Hypertension: BP is controlled. Not on any meds. Monitor. Subjective: Patient was seen and examined at the bedside. Objective: General appearance: well-developed, appears stated age, no distress noted HEENT: ATNC, GRANT Neck: trachea midline Respiratory: ctab Heart: regular, S1S2, no murmur Gastrointestinal: soft, normoactive bowel sounds, not tender Integumentary: no rash, warm and dry Ext: no edema Neurologic: alert, some confusion noted, able to move extremities Hemodialysis access: L arm AVG bruit heard Subjective Date of service: 05/22/21 Objective - Vital Signs Vital signs: Vital Signs - 12hr 05/22/21 05/22/21 04:43 08:00 Temperature 97.4 F L 97.9 F Pulse Rate 85 91 H Respiratory 16 16 Rate Blood Pressure 148/72 Blood Pressure 160/76 [Right] O2 Sat by Pulse 97 99 Oximetry - Lab 05/23/21 05:08 05/20/21 08:00 Most recent lab results Calcium 8.9 mg/dL (8.4-10.2) 05/20/21 08:00 Medications & Allergies - Medications Allergies/Adverse Reactions: Allergies No Known Allergies Allergy (Verified 05/23/13 22:50) Home Medications: Home Medications Medication Instructions Recorded Confirmed Last Taken Type Pantoprazole [Protonix TAB] 40 mg PO DAILY #30 tablet 07/15/13 05/22/21 1 Day Ago Rx ~02/20/21 carvediloL [Coreg] 25 mg PO BID #60 tablet 01/20/19 05/22/21 1 Day Ago Rx ~02/20/21 Travatan Z 0.004% 1 drop OU HS 01/27/20 05/22/21 1 Day Ago History ~02/20/21 Aspirin [Aspirin BABY CHEW TAB] 81 mg PO QDAY 02/25/21 05/22/21 02/20/21 History Simvastatin 20 mg PO QHS 02/25/21 05/22/21 02/20/21 History Apixaban [Eliquis] 5 mg PO BID #60 tablet 03/01/21 05/22/21 Unknown Rx Heparin [Heparin 10,000 Units/10 3,000 unit IV TIANNA PRN vial 03/01/21 05/22/21 Unknown Rx ml] Latanoprost 0.005% 1 drops OU QPM #1 bottle 03/01/21 05/22/21 Unknown Rx Docusate Sodium [Colace CAP] 100 mg PO BID #30 capsule 03/07/21 05/22/21 Unknown Rx Epoetin Johny-Epbx 10,000 Unit 10,000 unit SUB-Q TIANNA PRN vial 05/23/21 Unknown Rx [Retacrit] Active Medications: Generic Name Dose Route Start Last Admin Trade Name Freq PRN Reason Stop Dose Admin Acetaminophen 650 mg 05/19/21 03:27 Acetaminophen 325 Mg Tab PO Q4H PRN Pain MILD(1-3)/Fever >100.5/RO Apixaban 5 mg 05/21/21 10:00 05/22/21 09:51 Apixaban 5 Mg Tab PO 5 mg Q12HR MUNIRA Administration Protocol Aspirin 81 mg 05/21/21 10:00 05/22/21 09:51 Aspirin 81 Mg Tab Chew PO 81 mg QDAY MUNIRA Administration Dextrose 0 ml 05/19/21 03:35 Dextrose 10% *Hypoglycemia IV DIRECT PRN Hypoglycemia Protocol Docusate Sodium 100 mg 05/20/21 22:00 05/22/21 09:51 Docusate Sodium 100 Mg Cap PO 100 mg BID MUNIRA Administration Heparin Sodium (Porcine) 3,000 unit 05/20/21 07:56 Heparin 10,000 Units/10 Ml Vial IV TIANNA PRN hemodialysis Sodium Chloride 100 mls @ 999 mls/hr 05/20/21 07:56 Nacl 0.9% IV TIANNA PRN Hypotension Insulin Human Lispro 0 unit 05/19/21 07:30 05/22/21 08:30 Insulin Lispro 100 Unit/Ml SUB-Q Not Given ACHS MUNIRA Protocol Latanoprost 1 drops 05/20/21 20:00 05/21/21 18:48 Latanoprost 0.005% Ophth Soln 2.5 Ml OU 1 drops QPM MUNIRA Administration Magnesium Hydroxide 30 ml 05/19/21 03:27 05/22/21 04:54 Magnesium Hydroxide (Mom) Oral Liqd Udc PO 30 ml Q4H PRN Administration Constipation Morphine Sulfate 2 mg 05/19/21 03:27 Morphine 2 Mg/1 Ml Inj IV Q4H PRN Pain, Moderate (4-6) Morphine Sulfate 4 mg 05/19/21 03:27 Morphine 4 Mg/1 Ml Inj IV Q4H PRN Pain , Severe (7-10) Ondansetron HCl 4 mg 05/19/21 03:27 Ondansetron 4 Mg/2 Ml Inj IV Q8H PRN Nausea And Vomiting Pantoprazole Sodium 40 mg 05/21/21 10:00 05/22/21 09:51 Pantoprazole 40 Mg Tab PO 40 mg DAILY MUNIRA Administration Pravastatin Sodium 40 mg 05/20/21 22:00 05/21/21 21:12 Pravastatin 40 Mg Tab PO 40 mg QHS MUNIRA Administration Sodium Chloride 10 ml 05/19/21 10:00 05/22/21 09:52 Sodium Chloride 0.9% 10 Ml Flush Syringe IV 10 ml BID MUNIRA Administration Sodium Chloride 10 ml 05/19/21 03:27 Sodium Chloride 0.9% 10 Ml Flush Syringe IV PRN PRN LINE FLUSH
[2021-05-22] MEDS: LATANOPROST 0.005% OPHTH SOLN 2.5 ML OU SCH (17:00)
--- NOTE | 2021-05-22 17:48 | Progress Note ---
Assessment and Plan Assessment and plan: Initially patient was supposed to be discharged home with patient's son with home health, as plans are being made for discharge Case management reports that patient is returning to [facility], pending authorization from insurance. We will hold discharge, Continue current management. Covid test prior to discharge is negative Discharge to SNF pending authorization --Malfunctioning AV graft/permacath malfunctioning Vascular evaluated the patient, status post successful angioplasty and thrombectomy of the left arm AV graft Successful right femoral tunneled cuffed hemodialysis catheter removal 05/20/2019 Hemodialysis per schedule TTS -- ESRD (end stage renal disease) on dialysis Nephrology following, patient had hemodialysis 05/20/2021 Patient gets dialysis on Tuesdays, and Saturdays. Outpatient dialysis schedule is confirmed by CM -- Diabetes mellitus Moderate control, Accu-Cheks sliding scale coverage ADA diet Insulin as needed --HTN (hypertension) Moderate control, continue current antihypertensives As needed labetalol -- DVT prophylaxis Patient placed on subcutaneous heparin. -- Full code status Patient is full code. We will closely monitor the patient and adjust management as needed Plan of care reviewed with the patient, her nurse and case management Patient is medically stable for discharge Pending insurance authorization DC planning per case management History Interval history: I have seen and examined the patient at the bedside Patient's chart and medications reviewed Patient feels better, no new complaints Hospitalist Physical - Constitutional Vitals: Temp Pulse Resp BP Pulse Ox 97.9 F 91 H 16 160/76 96 05/22/21 08:00 05/22/21 08:00 05/22/21 08:00 05/22/21 08:00 05/22/21 08:00 General appearance: Present: no acute distress, well-nourished, obese - EENT Eyes: Present: PERRL, EOM intact - Neck Neck: Present: supple, normal ROM - Respiratory Respiratory effort: normal Respiratory: bilateral: diminished, negative: rales, rhonchi, wheezing - Cardiovascular Rhythm: regular Heart Sounds: Present: S1 & S2 - Extremities Extremities: no ischemia, No edema - Abdominal General gastrointestinal: soft, non-tender, non-distended, normal bowel sounds - Integumentary Integumentary: Present: clear, warm - Psychiatric Psychiatric: appropriate mood/affect, cooperative - Neurologic Neurologic: moves all extremities Results - Labs CBC & Chem 7: 05/20/21 08:00 05/20/21 08:00 Labs: Laboratory Last Values WBC 9.0 K/mm3 (4.5-11.0) 05/20/21 08:00 RBC 3.72 M/mm3 (3.65-5.03) 05/20/21 08:00 Hgb 11.3 gm/dl (10.1-14.3) 05/20/21 08:00 Hct 34.6 % (30.3-42.9) 05/20/21 08:00 MCV 93 fl (79-97) 05/20/21 08:00 MCH 30 pg (28-32) 05/20/21 08:00 MCHC 33 % (30-34) 05/20/21 08:00 RDW 16.5 % (13.2-15.2) H 05/20/21 08:00 Plt Count 280 K/mm3 (140-440) 05/20/21 08:00 Lymph % (Auto) 28.7 % (13.4-35.0) 05/20/21 08:00 [place] % (Auto) 5.8 % (0.0-7.3) 05/20/21 08:00 Eos % (Auto) 3.7 % (0.0-4.3) 05/20/21 08:00 Baso % (Auto) 0.7 % (0.0-1.8) 05/20/21 08:00 Lymph # (Auto) 2.6 K/mm3 (1.2-5.4) 05/20/21 08:00 [place] # (Auto) 0.5 K/mm3 (0.0-0.8) 05/20/21 08:00 Eos # (Auto) 0.3 K/mm3 (0.0-0.4) 05/20/21 08:00 Baso # (Auto) 0.1 K/mm3 (0.0-0.1) 05/20/21 08:00 Seg Neutrophils % 61.1 % (40.0-70.0) 05/20/21 08:00 Seg Neutrophils # 5.5 K/mm3 (1.8-7.7) 05/20/21 08:00 PT 16.4 Sec. (12.2-14.9) H 05/19/21 00:37 INR 1.19 (0.87-1.13) H 05/19/21 00:37 APTT 41.7 Sec. (24.2-36.6) H 05/19/21 00:37 Sodium 138 mmol/L (137-145) 05/20/21 08:00 Potassium 5.1 mmol/L (3.6-5.0) H 05/20/21 08:00 Chloride 101.8 mmol/L (98-107) 05/20/21 08:00 Carbon Dioxide 19 mmol/L (22-30) L 05/20/21 08:00 Anion Gap 22 mmol/L 05/20/21 08:00 BUN 59 mg/dL (7-17) H 05/20/21 08:00 Creatinine 5.9 mg/dL (0.6-1.2) H 05/20/21 08:00 Estimated GFR 9 ml/min 05/20/21 08:00 BUN/Creatinine Ratio 10 % 05/20/21 08:00 Glucose 126 mg/dL (65-100) H 05/20/21 08:00 POC Glucose 201 mg/dL (70-105) H 05/22/21 15:43 Calcium 8.9 mg/dL (8.4-10.2) 05/20/21 08:00 Coronavirus (PCR) Negative (Negative) 05/22/21 08:34 Hepatitis A IgM Ab Non-reactive (NonReactive) 05/20/21 08:00 Hep Bs Antigen Non-reactive (Negative) 05/20/21 08:00 Hep B Core IgM Ab Non-reactive (NonReactive) 05/20/21 08:00 Hepatitis C Antibody Non-reactive (NonReactive) 05/20/21 08:00 Microbiology: Microbiology 05/19/21 02:21 Peripheral/Venous Blood Culture - Preliminary NO GROWTH AFTER 72 HOURS 05/19/21 02:14 Peripheral/Venous Blood Culture - Preliminary NO GROWTH AFTER 72 HOURS New/IV: Voiding Method External Female Catheter Active Medications - Current Medications Current Medications: Generic Name Dose Route Start Last Admin Trade Name Freq PRN Reason Stop Dose Admin Acetaminophen 650 mg 05/19/21 03:27 Acetaminophen 325 Mg Tab PO Q4H PRN Pain MILD(1-3)/Fever >100.5/RO Apixaban 5 mg 05/21/21 10:00 05/22/21 09:51 Apixaban 5 Mg Tab PO 5 mg Q12HR MUNIRA Administration Protocol Aspirin 81 mg 05/21/21 10:00 05/22/21 09:51 Aspirin 81 Mg Tab Chew PO 81 mg QDAY MUNIRA Administration Dextrose 0 ml 05/19/21 03:35 Dextrose 10% *Hypoglycemia IV DIRECT PRN Hypoglycemia Protocol Docusate Sodium 100 mg 05/20/21 22:00 05/22/21 09:51 Docusate Sodium 100 Mg Cap PO 100 mg BID MUNIRA Administration Heparin Sodium (Porcine) 3,000 unit 05/20/21 07:56 Heparin 10,000 Units/10 Ml Vial IV TIANNA PRN hemodialysis Sodium Chloride 100 mls @ 999 mls/hr 05/20/21 07:56 Nacl 0.9% IV TIANNA PRN Hypotension Insulin Human Lispro 0 unit 05/19/21 07:30 05/22/21 16:55 Insulin Lispro 100 Unit/Ml SUB-Q 3 unit ACHS MUNIRA Administration Protocol Latanoprost 1 drops 05/20/21 20:00 05/22/21 17:00 Latanoprost 0.005% Ophth Soln 2.5 Ml OU 1 drops QPM MUNIRA Administration Magnesium Hydroxide 30 ml 05/19/21 03:27 05/22/21 04:54 Magnesium Hydroxide (Mom) Oral Liqd Udc PO 30 ml Q4H PRN Administration Constipation Morphine Sulfate 2 mg 05/19/21 03:27 Morphine 2 Mg/1 Ml Inj IV Q4H PRN Pain, Moderate (4-6) Morphine Sulfate 4 mg 05/19/21 03:27 Morphine 4 Mg/1 Ml Inj IV Q4H PRN Pain , Severe (7-10) Ondansetron HCl 4 mg 05/19/21 03:27 Ondansetron 4 Mg/2 Ml Inj IV Q8H PRN Nausea And Vomiting Pantoprazole Sodium 40 mg 05/21/21 10:00 05/22/21 09:51 Pantoprazole 40 Mg Tab PO 40 mg DAILY MUNIRA Administration Pravastatin Sodium 40 mg 05/20/21 22:00 05/21/21 21:12 Pravastatin 40 Mg Tab PO 40 mg QHS MUNIRA Administration Sodium Chloride 10 ml 05/19/21 10:00 05/22/21 09:52 Sodium Chloride 0.9% 10 Ml Flush Syringe IV 10 ml BID MUNIRA Administration Sodium Chloride 10 ml 05/19/21 03:27 Sodium Chloride 0.9% 10 Ml Flush Syringe IV PRN PRN LINE FLUSH Nutrition/Malnutrition Assess - Dietary Evaluation Nutrition/Malnutrition Findings: Nutrition Notes Start: 05/19/21 15:23 Freq: Status: Active Protocol: Document 05/19/21 15:23 CAROLINE (Rec: 05/19/21 15:35 CAROLINE [id number]) Nutrition Notes Need for Assessment generated from: MD Order,Education Initial or Follow up Brief Note Current Diagnosis CKD (stage V CKD),Diabetes, Hypertension,Stroke Other Pertinent Diagnosis Femoral Dialysis Cathter malfunction, ESRD+HD, GERD. Current Diet Cardiac/Consistent Carbohydrates Diet (B 05/19), NPO (05/20 00:01). Height 5 ft 1 in Weight 90.718 kg [place] Body Weight (kg) 47.72 BMI 37.8 Intake Prior to Admission Good Weight change and time frame Pt states not having loss body weight [employer]GER. Weight Status Obese Subjective/Other Information RD consult for Nutrition Education. No reports available on Pt's PO intake of meals at the time . Pt lives on SNF. Pt still on critical conditions, not a candidate for Nutrition Education at the time, will assess feasibility on F/U. Percent of energy/protein needs met: Prescribed Cardiac/Consistent Carbohydrates Diet provides for energy/protein needs (1, 977 Kcal/86 g) during LOS. Nutrition Intervention Follow-Up By: 05/24/21 Additional Comments Nutrition education will be provided on F/U, if feasible. Continue monitoring food tolerance, %PO intake of meals , and BM.
[2021-05-22] MEDS: PRAVASTATIN 40 MG TAB PO SCH (21:50)
[2021-05-23 05:40] LABS: Hematocrit 32.4 % (30.3-42.9); Hemoglobin 10.9 gm/dl (10.1-14.3); Mean Corpuscular HGB Conc 34 % (30-34); Mean Corpuscular Volume 93 fl (79-97); Platelet Count 253 K/mm3 (140-440); Red Blood Count 3.47 M/mm3 (3.65-5.03); Red Cell Distribution Width 16.3 % (13.2-15.2)
[2021-05-23] MEDS: INSULIN LISPRO 100 UNIT/ML SUB-Q SCH ×2 (08:05→12:30)
[2021-05-23] MEDS ORDERED: EPOETIN ALFA-EPBX 10,000 UNIT/1 ML VIAL SUB-Q PRN (08:30)
[2021-05-23] MEDS: ASPIRIN 81 MG TAB CHEW PO SCH (10:44)
[2021-05-23] MEDS: DOCUSATE SODIUM 100 MG CAP PO SCH (10:44)
[2021-05-23] MEDS: APIXABAN 5 MG TAB PO SCH (10:45)
[2021-05-23] MEDS: PANTOPRAZOLE 40 MG TAB PO SCH (10:45)
--- NOTE | 2021-05-23 11:11 | Discharge Summary ---
Providers - Providers Date of Admission: 05/19/21 03:27 Date of discharge: 05/23/21 Attending physician: ESTER OMER MD 05/19/21 02:06 Consult to Physician [CONS] Urgent Comment: Consulting Provider: FELIX TRINIDAD Physician Instructions: Reason For Exam: esrd needing dialysis 05/19/21 02:07 Consult to Physician [CONS] Urgent Comment: Consulting Provider: IAN URRUTIA Physician Instructions: Reason For Exam: esrd needing access 05/19/21 03:27 Consult to Dietitian/Nutrition [CONS] Routine Physician Instructions: Reason For Exam: Reason for Consult: Diet education 05/21/21 16:16 Occupational Therapy Evaluate and Treat [CONS] Stat Comment: Reason For Exam: eval and treat Physical Therapy Evaluation and Treat [CONS] Stat Comment: Reason For Exam: eval and treat Primary care physician: CERTIFIED REGISTERED DENTAL ASSISTANT Hospitalization Reason for admission: Malfunctioning left upper extremity AV fistula Condition: Stable Pertinent studies: Reviewed Procedures: Repair of malfunctioning AV fistula by vascular surgery, removal of femoral tunneled hemodialysis catheter Hospital course: Patient is a 71-year-old female past medical history of noninsulin-dependent type 2 diabetes mellitus, hypertension, hemodialysis on ESRD (TTS), and history of CVA (2012) who presented for a malfunctioning right femoral dialysis catheter requiring her to miss HD sessions. The patient also was found to have an AV fistula in her left upper extremity. Upon presentation the patient was found to be hemodynamically stable with a creatinine of 5.8 and potassium of 4.3. Nephrology was consulted for hemodialysis management. Vascular surgery was consulted for management of the malfunctioning AV fistula. Vascular surgery performed an angioplasty and thrombectomy of the left upper extremity AV fistula as well as removal of the right femoral tunneled cuffed hemodialysis catheter on 05/20/2021. Patient was reevaluated by physical therapy with recommendations for her to return back to her facility at [facility]. The patient's authorization was approved on 05/23/2021. The patient is medically cleared for discharge. Disposition: 01 HOME / SELF CARE / HOMELESS Final Discharge Diagnosis (Prints w/discharge instructions): Malfunctioning left upper extremity AV graft and femoral permacath, ESRD on hemodialysis, [id number] type 2 diabetes mellitus, hypertension, morbid obesity, history of CVA Time spent for discharge: 45 min Core Measure Documentation - Palliative Care Palliative Care/ Comfort Measures: Not Applicable - Core Measures Any of the following diagnoses?: history only Exam - Constitutional Vitals: Temp Pulse Resp BP Pulse Ox 98 F 97 H 16 167/83 94 05/23/21 07:55 05/23/21 07:55 05/23/21 07:55 05/23/21 07:55 05/23/21 07:55 General appearance: Present: no acute distress, well-nourished, obese - EENT Eyes: Present: PERRL, EOM intact ENT: hearing intact, clear oral mucosa - Neck Neck: Present: supple, normal ROM - Respiratory Respiratory effort: normal Respiratory: bilateral: CTA - Cardiovascular Rhythm: regular Heart Sounds: Present: S1 & S2 - Extremities Extremities: no ischemia, pulses intact, pulses symmetrical, No edema, normal temperature, normal color, abnormal (Left upper extremity AV fistula) Peripheral Pulses: within normal limits - Abdominal General gastrointestinal: Present: soft, non-tender, non-distended, normal bowel sounds Female genitourinary: Present: deferred - Rectal Rectal Exam: deferred - Integumentary Integumentary: Present: clear, warm, dry - Musculoskeletal Musculoskeletal: strength equal bilaterally - Psychiatric Psychiatric: appropriate mood/affect, memory intact, cooperative - Neurologic Neurologic: CNII-XII intact, moves all extremities - Allied Health Allied health notes reviewed: nursing Plan Activity: no restrictions Diet: renal Additional Instructions: Patient is a 71-year-old female past medical history of noninsulin-dependent type 2 diabetes mellitus, hypertension, hemodialysis on ESRD (TTS), and history of CVA (2012) who presented for a malfunctioning right f emoral dialysis catheter requiring her to miss HD sessions. The patient also was found to have an AV fistula in her left upper extremity. Upon presentation the patient was found to be hemodynamically stable with a creatinine of 5.8 and potassium of 4.3. Nephrology was consulted for hemodialysis management. Vascular surgery was consulted for management of the malfunctioning AV fistula. Vascular surgery performed an angioplasty and thrombectomy of the left upper extremity AV fistula as well as removal of the right femoral tunneled cuffed hemodialysis catheter on 05/20/2021. Patient was reevaluated by physical therapy with recommendations for her to return back to her facility at [facility]. The patient's authorization was approved on 05/23/2021. The patient is medically cleared for discharge. Care Plan Goals: Patient is medically clear for discharge. Assessment: Patient is a 71-year-old female past medical history of noninsulin-dependent type 2 diabetes mellitus, hypertension, hemodialysis on ESRD (), and history of CVA (2012) who presented for a malfunctioning right femoral dialysis catheter requiring her to miss HD sessions. The patient also was found to have an AV fistula in her left upper extremity. Upon presentation the patient was found to be hemodynamically stable with a creatinine of 5.8 and potassium of 4.3. Nephrology was consulted for hemodialysis management. Vascular surgery was consulted for management of the malfunctioning AV fistula. Vascular surgery performed an angioplasty and thrombectomy of the left upper extremity AV fistula as well as removal of the right femoral tunneled cuffed hemodialysis catheter on 05/20/2021. Patient was reevaluated by physical therapy with recommendations for her to return back to her facility at [facility]. The patient's authorization was approved on 05/23/2021. The patient is medically cleared for discharge. Follow up with: ADILENE LAW MD [Primary Care Provider] - 3-5 Days FELIX TRINIDAD MD [Staff Physician] - 7 Days
--- NOTE | 2021-05-23 12:51 | Progress Note ---
Assessment and Plan 1. ESRD: On maintenance hemodialysis, TTS schedule. Last outpatient HD 05/16. Meds dosage based on GFR. Hemodialysis: 05/20, 05/23. 2. FEN: Monitor lytes and volume status. 3. Malfunctioning AVG // purulent discharge from the dialysis catheter exit si te: S/p angioplasty of AVG and removal of femoral catheter. Able to use AVG. 4. DM-2: Lantus and SSI. 5. Hypertension: BP is controlled. Not on any meds. Monitor. Subjective: Patient was seen and examined at the bedside. Objective: General appearance: well-developed, appears stated age, no distress noted HEENT: ATNC, GRANT Neck: trachea midline Respiratory: ctab Heart: regular, S1S2, no murmur Gastrointestinal: soft, normoactive bowel sounds, not tender Integumentary: no rash, warm and dry Ext: no edema Neurologic: alert, some confusion noted, able to move extremities Hemodialysis access: L arm AVG bruit heard Subjective Date of service: 05/23/21 Objective - Vital Signs Vital signs: Vital Signs - 12hr 05/23/21 05/23/21 05:40 07:55 Temperature 98.2 F 98 F Pulse Rate 92 H 97 H Respiratory 18 16 Rate Blood Pressure 94/51 Blood Pressure 167/83 [Right] O2 Sat by Pulse 96 94 Oximetry - Lab 05/23/21 05:08 05/20/21 08:00 Most recent lab results Calcium 8.9 mg/dL (8.4-10.2) 05/20/21 08:00 Medications & Allergies - Medications Allergies/Adverse Reactions: Allergies No Known Allergies Allergy (Verified 05/23/13 22:50) Home Medications: Home Medications Medication Instructions Recorded Confirmed Last Taken Type Pantoprazole [Protonix TAB] 40 mg PO DAILY #30 tablet 07/15/13 05/22/21 1 Day Ago Rx ~02/20/21 carvediloL [Coreg] 25 mg PO BID #60 tablet 01/20/19 05/22/21 1 Day Ago Rx ~02/20/21 Travatan Z 0.004% 1 drop OU HS 01/27/20 05/22/21 1 Day Ago History ~02/20/21 Aspirin [Aspirin BABY CHEW TAB] 81 mg PO QDAY 02/25/21 05/22/21 02/20/21 History Simvastatin 20 mg PO QHS 02/25/21 05/22/21 02/20/21 History Apixaban [Eliquis] 5 mg PO BID #60 tablet 03/01/21 05/22/21 Unknown Rx Heparin [Heparin 10,000 Units/10 3,000 unit IV TIANNA PRN vial 03/01/21 05/22/21 Unknown Rx ml] Latanoprost 0.005% 1 drops OU QPM #1 bottle 03/01/21 05/22/21 Unknown Rx Docusate Sodium [Colace CAP] 100 mg PO BID #30 capsule 03/07/21 05/22/21 Unknown Rx Epoetin Johny-Epbx 10,000 Unit 10,000 unit SUB-Q TIANNA PRN vial 05/23/21 Unknown Rx [Retacrit] Active Medications: Generic Name Dose Route Start Last Admin Trade Name Freq PRN Reason Stop Dose Admin Acetaminophen 650 mg 05/19/21 03:27 Acetaminophen 325 Mg Tab PO Q4H PRN Pain MILD(1-3)/Fever >100.5/RO Apixaban 5 mg 05/21/21 10:00 05/23/21 10:45 Apixaban 5 Mg Tab PO Not Given Q12HR [facility] Protocol Aspirin 81 mg 05/21/21 10:00 05/23/21 10:44 Aspirin 81 Mg Tab Chew PO Not Given QDAY [facility] Dextrose 0 ml 05/19/21 03:35 Dextrose 10% *Hypoglycemia IV DIRECT PRN Hypoglycemia Protocol Docusate Sodium 100 mg 05/20/21 22:00 05/23/21 10:44 Docusate Sodium 100 Mg Cap PO Not Given BID MUNIRA Epoetin Johny-epbx 10,000 unit 05/23/21 08:30 Epoetin Johny-Epbx 10,000 Unit/1 Ml Vial SUB-Q TIANNA PRN hemodialysis Heparin Sodium (Porcine) 3,000 unit 05/20/21 07:56 Heparin 10,000 Units/10 Ml Vial IV TIANNA PRN hemodialysis Sodium Chloride 100 mls @ 999 mls/hr 05/20/21 07:56 Nacl 0.9% IV TIANNA PRN Hypotension Insulin Human Lispro 0 unit 05/19/21 07:30 05/23/21 08:05 Insulin Lispro 100 Unit/Ml SUB-Q Not Given ACHS [facility] Protocol Latanoprost 1 drops 05/20/21 20:00 05/22/21 17:00 Latanoprost 0.005% Ophth Soln 2.5 Ml OU 1 drops QPM MUNIRA Administration Magnesium Hydroxide 30 ml 05/19/21 03:27 05/22/21 04:54 Magnesium Hydroxide (Mom) Oral Liqd Udc PO 30 ml Q4H PRN Administration Constipation Morphine Sulfate 2 mg 05/19/21 03:27 Morphine 2 Mg/1 Ml Inj IV Q4H PRN Pain, Moderate (4-6) Morphine Sulfate 4 mg 05/19/21 03:27 Morphine 4 Mg/1 Ml Inj IV Q4H PRN Pain , Severe (7-10) Ondansetron HCl 4 mg 05/19/21 03:27 Ondansetron 4 Mg/2 Ml Inj IV Q8H PRN Nausea And Vomiting Pantoprazole Sodium 40 mg 05/21/21 10:00 05/23/21 10:45 Pantoprazole 40 Mg Tab PO Not Given DAILY MUNIRA Pravastatin Sodium 40 mg 05/20/21 22:00 05/22/21 21:50 Pravastatin 40 Mg Tab PO 40 mg QHS MUNIRA Administration Sodium Chloride 10 ml 05/19/21 10:00 05/23/21 10:45 Sodium Chloride 0.9% 10 Ml Flush Syringe IV Not Given BID MUNIRA Sodium Chloride 10 ml 05/19/21 03:27 Sodium Chloride 0.9% 10 Ml Flush Syringe IV PRN PRN LINE FLUSH
[2021-05-23 15:56] VITALS: BP 125/67
== END 2021-05-23 15:48 | disposition home or self-care (01) ==
LOC: ED 23:27 → 3A 05-19 03:27 → INTOOBSV 05-19 03:27
PROVIDERS: ADMIT Internal Medicine Geriatric Medicine; ATTEND Student in an Organized Health Care Education/Training Program
DX: T82.41XA Breakdown (mechanical) of vascular dialysis catheter, initial encounter (principal); Z20.822 Contact with and (suspected) exposure to COVID-19; I12.0 Hypertensive chronic kidney disease with stage 5 chronic kidney disease or end stage renal disease; N18.6 End stage renal disease; E11.22 Type 2 diabetes mellitus with diabetic chronic kidney disease; K21.9 Gastro-esophageal reflux disease without esophagitis; Z86.73 Personal history of transient ischemic attack (TIA), and cerebral infarction without residual deficits; Z99.2 Dependence on renal dialysis; Z90.710 Acquired absence of both cervix and uterus; Z79.899 Other long term (current) drug therapy; Z98.890 Other specified postprocedural states; Z79.82 Long term (current) use of aspirin; Z79.4 Long term (current) use of insulin
CPT/HCPCS: 36415; 36589; 36905; 80048; 80074; 82962; 85025; 85027; 85610; 85730; 87040; 96372; 97162; 99284; C1725; C1751; C1757; C1769; C1894; G0378; J0690; J0885; J1644; J2250; J3010; J3490; J7050; U0003; Q9967; J1815

== ENCOUNTER 2021-05-29 20:07 | Observation (INO) | payer MEDICARE ==
--- NOTE | 2021-05-29 20:48 | Emergency Department Report ---
HPI - General Chief Complaint: Medical Clearance Time Seen by Provider: 05/29/21 20:25 - HPI HPI: This is a 71-year-old -[place] female who presents to the emergency department via EMS from her [facility] facility with a complaint of missing her last 3 dialysis sessions. The patient was admitted here on 05/19 with a complaint of a malfunctioning and/or infected tunneled femoral dialysis catheter. While here patient had angioplasty and thrombectomy of a left AV graft. She says that she was discharged back to the [facility] to receive dialysis at [facility] but "the machine is broken." Her cuffer is Dr. Fernandez. She denies any chest pain, fever, shortness of breath, edema. ED Past Medical Hx - Past Medical History Previous Medical History?: Yes Hx Hypertension: Yes (took antihypertensives last night) Hx CVA: Yes (2012) Hx Heart Attack/AMI: No Hx Congestive Heart Failure: No Hx Diabetes: Yes Hx Deep Vein Thrombosis: No Hx Pulmonary Embolism: No Hx GERD: Yes (HX ACUTE GASTRITIS) Hx Liver Disease: No Hx Renal Disease: Yes (not yet on HD) Hx Sickle Cell Disease: No Hx Arthritis: No Hx Headaches / Migraines: No Hx Seizures: No Hx Kidney Stones: No Hx Psychiatric Treatment: No Hx Asthma: No Hx COPD: No Hx Tuberculosis: No Hx Dementia: No Hx HIV: No - Surgical History Past Surgical History?: Yes Hx Pacemaker: No Hx Internal Defibrillator: No Additional Surgical History: eye surgery and partial hysterectomy - Social History Smoking Status: Never Smoker - Medications Home Medications: Home Medications Medication Instructions Recorded Confirmed Last Taken Type Pantoprazole [Protonix TAB] 40 mg PO DAILY #30 tablet 07/15/13 05/22/21 1 Day Ago Rx ~02/20/21 carvediloL [Coreg] 25 mg PO BID #60 tablet 01/20/19 05/22/21 1 Day Ago Rx ~02/20/21 Travatan Z 0.004% 1 drop OU HS 01/27/20 05/22/21 1 Day Ago History ~02/20/21 Aspirin [Aspirin BABY CHEW TAB] 81 mg PO QDAY 02/25/21 05/22/21 02/20/21 History Simvastatin 20 mg PO QHS 02/25/21 05/22/21 02/20/21 History Apixaban [Eliquis] 5 mg PO BID #60 tablet 03/01/21 05/22/21 Unknown Rx Heparin [Heparin 10,000 Units/10 3,000 unit IV TIANNA PRN vial 03/01/21 05/22/21 Unknown Rx ml] Latanoprost 0.005% 1 drops OU QPM #1 bottle 03/01/21 05/22/21 Unknown Rx Docusate Sodium [Colace CAP] 100 mg PO BID #30 capsule 03/07/21 05/22/21 Unknown Rx Epoetin Johny-Epbx 10,000 Unit 10,000 unit SUB-Q TIANNA PRN vial 05/23/21 Unknown Rx [Retacrit] ED Review of Systems ROS: Stated complaint: NEEDS DIALYSIS Other details as noted in HPI Comment: All other systems reviewed and negative Constitutional: denies: chills, fever Eyes: denies: eye pain, vision change ENT: denies: ear pain, throat pain Respiratory: denies: cough, shortness of breath Cardiovascular: denies: chest pain, palpitations Gastrointestinal: denies: abdominal pain, vomiting Genitourinary: denies: dysuria, discharge Musculoskeletal: denies: back pain, arthralgia Skin: denies: rash, lesions Neurological: denies: headache, weakness Physical Exam - Physical Exam Vital Signs: Vital Signs 05/29/21 20:20 Temperature 98 F Pulse Rate 90 Respiratory 18 Rate Blood Pressure 170/88 [Left] O2 Sat by Pulse 99 Oximetry Physical Exam: GENERAL: The patient is well-developed well-nourished. HENT: Normocephalic. Atraumatic. Patient has moist mucous membranes. EYES: Extraocular motions are intact NECK: Supple. Trachea is midline. CHEST/LUNGS: Clear to auscultation. There is no respiratory distress noted. HEART/CARDIOVASCULAR: Regular. There is no tachycardia. There is no murmur. ABDOMEN: Abdomen is soft, nontender. Patient has normal bowel sounds. SKIN: Skin is warm and dry. NEURO: The patient is awake, alert, and cooperative. Normal speech. MUSCULOSKELETAL: There is no tenderness or deformity. There is no limitation range of motion. ED Course Vital Signs 05/29/21 20:20 Temperature 98 F Pulse Rate 90 Respiratory 18 Rate Blood Pressure 170/88 [Left] O2 Sat by Pulse 99 Oximetry - Consultations Consultation #1: 05/29/21 23:09 I spoke to the patient's cuffer, Dr. Fernandez. The dialysis nurse is still in the hospital and therefore the patient will receive emergency dialysis this evening. ED Medical Decision Making - Lab Data Result diagrams: 05/29/21 20:55 05/29/21 20:55 Lab Results 05/29/21 05/29/21 Range/Units 20:55 20:55 WBC 8.4 (4.5-11.0) K/mm3 RBC 3.80 (3.65-5.03) M/mm3 Hgb 11.6 (10.1-14.3) gm/dl Hct 35.9 (30.3-42.9) % MCV 95 (79-97) fl MCH 31 (28-32) pg MCHC 32 (30-34) % RDW 16.8 H (13.2-15.2) % Plt Count 251 (140-440) K/mm3 Lymph % (Auto) 24.5 (13.4-35.0) % Crowley % (Auto) 6.3 (0.0-7.3) % Eos % (Auto) 3.0 (0.0-4.3) % Baso % (Auto) 0.7 (0.0-1.8) % Lymph # (Auto) 2.1 (1.2-5.4) K/mm3 Crowley # (Auto) 0.5 (0.0-0.8) K/mm3 Eos # (Auto) 0.3 (0.0-0.4) K/mm3 Baso # (Auto) 0.1 (0.0-0.1) K/mm3 Seg Neutrophils % 65.5 (40.0-70.0) % Seg Neutrophils # 5.5 (1.8-7.7) K/mm3 Sodium 139 (137-145) mmol/L Potassium 6.5 H* (3.6-5.0) mmol/L Chloride 106.7 (98-107) mmol/L Carbon Dioxide 15 L (22-30) mmol/L Anion Gap 24 mmol/L BUN 68 H (7-17) mg/dL Creatinine 5.6 H (0.6-1.2) mg/dL Estimated GFR 9 ml/min BUN/Creatinine Ratio 12 % Glucose 156 H (65-100) mg/dL Calcium 8.3 L (8.4-10.2) mg/dL - EKG Data -: EKG Interpreted by Me EKG shows normal: sinus rhythm, axis, intervals, QRS complexes, ST-T waves (Peak T waves) Rate: normal - EKG Data When compared to previous EKG there are: previous EKG unavailable Interpretation: other (Sinus rhythm at 79 bpm, normal axis, normal intervals, peaked T waves. No ST elevation AL) - Radiology Data Radiology results: image reviewed interpreted by me: Chest x-ray does not show any acute process. There are no pleural effusions, obvious pneumonia and there is no pneumothorax. - Medical Decision Making This patient presents to the emergency department after missing her last 3 dialysis sessions. While she complains of some mild shortness of breath she does not appear in volume overload. Chest x-ray does not show any pneumonia, pleural effusions, pneumothorax, widened mediastinum. She has hyperkalemia with a potassium of 6.5. Elevated BUN/creatinine. Spoke with nephrology who will arrange for emergent dialysis this evening. Accepted for admission by the hospitalist, Dr. Spears. Critical Care Time: No Critical care attestation.: If time is entered above; I have spent that time in minutes in the direct care of this critically ill patient, excluding procedure time. ED Disposition Clinical Impression: ESRD needing dialysis, Hyperkalemia, Hypertension, Missed dialysis Disposition: ADMITTED INPATIENT Is pt being admited?: Yes Condition: Serious Instructions: Hypertension (ED) Time of Disposition: 23:12
[2021-05-29 21:12] LABS: Basophils # (Auto) 0.1 K/mm3 (0.0-0.1); Basophils % (Auto) 0.7 % (0.0-1.8); Eosinophils # (Auto) 0.3 K/mm3 (0.0-0.4); Hematocrit 35.9 % (30.3-42.9); Hemoglobin 11.6 gm/dl (10.1-14.3); Lymphocytes # (Auto) 2.1 K/mm3 (1.2-5.4); Lymphocytes % (Auto) 24.5 % (13.4-35.0); Mean Corpuscular HGB Conc 32 % (30-34); Mean Corpuscular Volume 95 fl (79-97); Monocytes # (Auto) 0.5 K/mm3 (0.0-0.8); Monocytes % (Auto) 6.3 % (0.0-7.3); Platelet Count 251 K/mm3 (140-440); Red Cell Distribution Width 16.8 % (13.2-15.2)
--- NOTE | 2021-05-29 21:30 | XRay Report ---
XR chest 1V ap INDICATION / CLINICAL INFORMATION: SOB. COMPARISON: 02/21/2021 FINDINGS: SUPPORT DEVICES: None. HEART /PULMONARY VASCULATURE: The heart is not enlarged. LUNGS / PLEURA: Lung volumes are diminished but appear clear focal infiltrate. No sizable pleural eff usion. No pneumothorax. IMPRESSION: 1. No acute findings. Signer Name: Bg Kuhn MD Signed: 05/29/2021 9:26 PM Workstation Name: [id number]
[2021-05-29 21:32] LABS: Calcium 8.3 mg/dL (8.4-10.2)
[2021-05-29] MEDS ORDERED: DEXTROSE 50% IN WATER (25GM) 50 ML SYRINGE IV ONE (22:16)
[2021-05-29] MEDS ORDERED: CALC GLUCONATE 1GM/NS 100 ML 1 GM/100 ML BAG IV ONE (22:16)
[2021-05-29] MEDS ORDERED: SODIUM POLYSTYRENE 15 GM/60 ML ORAL LIQD PO ONE (22:16)
[2021-05-29] MEDS ORDERED: INSULIN REGULAR, HUMAN 100 UNITS/1 ML IV ONE (22:16)
[2021-05-29] MEDS ORDERED: ALBUTEROL 2.5 MG/3 ML NEBU IH ONE (22:17)
[2021-05-29] MEDS ORDERED: HEPARIN 10,000 UNITS/10 ML VIAL IV PRN (22:18)
[2021-05-29] MEDS ORDERED: SODIUM CHLORIDE 0.9% 100 ML IV PRN (22:18)
[2021-05-30] MEDS ORDERED: ACETAMINOPHEN 325 MG TAB PO PRN (00:05)
[2021-05-30] MEDS ORDERED: MORPHINE 2 MG/1 ML INJ IV PRN (00:05)
[2021-05-30] MEDS ORDERED: ONDANSETRON 4 MG/2 ML INJ IV PRN (00:05)
[2021-05-30] MEDS ORDERED: DEXTROSE 50% IN WATER (25GM) 50 ML SYRINGE IV PRN (00:05)
[2021-05-30] MEDS ORDERED: MORPHINE 4 MG/1 ML INJ IV PRN (00:05)
[2021-05-30] MEDS ORDERED: MAGNESIUM HYDROXIDE (MOM) ORAL LIQD UDC PO PRN (00:05)
--- NOTE | 2021-05-30 00:19 | History and Physical Report ---
History of Present Illness Date of examination: 05/29/21 Date of admission: 05/29/2021 Chief complaint: Missed Dialysis History of present illness: 71-year-old -[place] female brought in by EMS from [facility] with a complaint of missing 3 sessions of dialysis. Patient was recently admitted in this hospital on May 27 with complaint of malfunctioning and infected tunneled femoral dialysis catheter. During her recent hospital stay she had angioplasty and tubectomy of a left AV graft. She denies any fever or chills, no chest pain no shortness of breath, no nausea vomiting no abdominal pain. Patient states she missed dialysis because the dialysis machine at dialysis center broke down. Work-up in the emergency room today, lab reveals potassium level of 6.5, EKG shows some peaked T waves. Patient had nebulizing treatment, insulin and glucose, calcium gluconate in the emergency room. Patient is being admitted to be evaluated for dialysis. Past History Past Medical History: dialysis, ESRD, GERD, hypertension, stroke (2012) Past Surgical History: Other (eye surgery and partial hysterectomy) Social history: no significant social history Family history: no significant family history Medications and Allergies Allergies Allergy/AdvReac Type Severity Reaction Status Date / Time No Known Allergies Allergy Verified 05/23/13 22:50 Home Medications Medication Instructions Recorded Confirmed Last Taken Type Pantoprazole [Protonix TAB] 40 mg PO DAILY #30 tablet 07/15/13 05/22/21 1 Day Ago Rx ~02/20/21 carvediloL [Coreg] 25 mg PO BID #60 tablet 01/20/19 05/22/21 1 Day Ago Rx ~02/20/21 Travatan Z 0.004% 1 drop OU HS 01/27/20 05/22/21 1 Day Ago History ~02/20/21 Aspirin [Aspirin BABY CHEW TAB] 81 mg PO QDAY 02/25/21 05/22/21 02/20/21 History Simvastatin 20 mg PO QHS 02/25/21 05/22/21 02/20/21 History Apixaban [Eliquis] 5 mg PO BID #60 tablet 03/01/21 05/22/21 Unknown Rx Heparin [Heparin 10,000 Units/10 3,000 unit IV TIANNA PRN vial 03/01/21 05/22/21 Unknown Rx ml] Latanoprost 0.005% 1 drops OU QPM #1 bottle 03/01/21 05/22/21 Unknown Rx Docusate Sodium [Colace CAP] 100 mg PO BID #30 capsule 03/07/21 05/22/21 Unknown Rx Epoetin Johny-Epbx 10,000 Unit 10,000 unit SUB-Q TIANNA PRN vial 05/23/21 Unknown Rx [Retacrit] Active Meds: Active Medications Acetaminophen (Acetaminophen 325 Mg Tab) 650 mg PO Q4H PRN PRN Reason: Pain MILD(1-3)/Fever >100.5/RO Dextrose (Dextrose 50% In Water (25gm) 50 Ml Syringe) 50 ml IV Q30MIN PRN; Protocol PRN Reason: Hypoglycemia Dextrose (Dextrose 50% In Water (25gm) 50 Ml Syringe) 50 ml IV Q30MIN PRN; Protocol PRN Reason: Hypoglycemia Heparin Sodium (Porcine) (Heparin 10,000 Units/10 Ml Vial) 3,000 unit IV TIANNA PRN PRN Reason: hemodialysis Sodium Chloride (Nacl 0.9%) 100 mls @ 999 mls/hr IV TIANNA PRN PRN Reason: Hypotension Insulin Human Lispro (Insulin Lispro 100 Unit/Ml) 0 unit SUB-Q ACHS MUNIRA; Protocol Magnesium Hydroxide (Magnesium Hydroxide (Mom) Oral Liqd Udc) 30 ml PO Q4H PRN PRN Reason: Constipation Morphine Sulfate (Morphine 2 Mg/1 Ml Inj) 2 mg IV Q4H PRN PRN Reason: Pain, Moderate (4-6) Morphine Sulfate (Morphine 4 Mg/1 Ml Inj) 4 mg IV Q4H PRN PRN Reason: Pain , Severe (7-10) Ondansetron HCl (Ondansetron 4 Mg/2 Ml Inj) 4 mg IV Q8H PRN PRN Reason: Nausea And Vomiting Sodium Chloride (Sodium Chloride 0.9% 10 Ml Flush Syringe) 10 ml IV BID MUNIRA Sodium Chloride (Sodium Chloride 0.9% 10 Ml Flush Syringe) 10 ml IV PRN PRN PRN Reason: LINE FLUSH Review of Systems Constitutional: no fever, no chills Ears, nose, mouth and throat: no nasal congestion, no sore throat Cardiovascular: no chest pain, no palpitations Respiratory: no cough, no shortness of breath Gastrointestinal: no abdominal pain, no nausea, no vomiting, no diarrhea Genitourinary Female: no pelvic pain, no flank pain, no dysuria, no hematuria Musculoskeletal: no neck pain, no low back pain Integumentary: no rash, no pruritis Neurological: no headaches, no confusion Psychiatric: no anxiety, no depression Endocrine: no polyphagia, no polydipsia, no polyuria, no nocturia Exam - Constitutional Vitals: Temp Pulse Resp BP Pulse Ox 98.2 F 88 18 116/71 98 05/29/21 23:17 05/30/21 00:00 05/29/21 23:17 05/30/21 00:00 05/29/21 23:17 General appearance: Present: no acute distress, well-nourished - EENT Eyes: Present: PERRL, EOM intact. Absent: scleral icterus ENT: hearing intact, clear oral mucosa, dentition normal - Neck Neck: Present: supple, normal ROM - Respiratory Respiratory effort: normal Respiratory: bilateral: CTA - Cardiovascular Rhythm: regular Heart Sounds: Present: S1 & S2. Absent: gallop, systolic murmur, diastolic murmur, rub, click - Extremities Extremities: no ischemia, pulses intact, pulses symmetrical, No edema, normal temperature, Full ROM Peripheral Pulses: within normal limits - Abdominal General gastrointestinal: Present: soft, non-tender, non-distended, normal bowel sounds. Absent: mass - Integumentary Integumentary: Present: clear, warm, dry, normal turgor. Absent: rash - Musculoskeletal Musculoskeletal: strength equal bilaterally - Psychiatric Psychiatric: appropriate mood/affect, intact judgment & insight, memory intact, cooperative - Neurologic Neurologic: CNII-XII intact, no focal deficits, moves all extremities Results - Labs CBC & Chem 7: 05/29/21 20:55 05/30/21 04:17 Labs: Abnormal lab results 05/29/21 05/29/21 Range/Units 20:55 20:55 RDW 16.8 H (13.2-15.2) % Potassium 6.5 H* (3.6-5.0) mmol/L Carbon Dioxide 15 L (22-30) mmol/L BUN 68 H (7-17) mg/dL Creatinine 5.6 H (0.6-1.2) mg/dL Glucose 156 H (65-100) mg/dL Calcium 8.3 L (8.4-10.2) mg/dL Assessment and Plan - Patient Problems (1) ESRD needing dialysis Current Visit: Yes Status: Acute Plan to address problem: Consult placed to hospital laboratory technician for dialysis. (2) Hyperkalemia Current Visit: Yes Status: Acute Plan to address problem: Patient has had albuterol nebulizing treatment, insulin and glucose and calcium gluconate in the emergency room. We monitor potassium levels. Patient is being prepared for dialysis. (3) Diabetes mellitus Current Visit: No Status: Acute Plan to address problem: Patient placed on sliding scale insulin. We will monitor Accu-Cheks closely. (4) HTN (hypertension) Current Visit: No Status: Chronic Qualifiers: Hypertension type: essential hypertension Plan to address problem: We will resume routine home medications and monitor vital signs closely. (5) DVT prophylaxis Current Visit: No Status: Acute Plan to address problem: Patient placed on subcutaneous heparin. (6) Full code status Current Visit: No Status: Acute Plan to address problem: Patient is full code.
[2021-05-30] MEDS ORDERED: DEXTROSE 10% *Hypoglycemia IV PRN (00:20)
[2021-05-30 05:37] LABS: Calcium 8.1 mg/dL (8.4-10.2)
--- NOTE | 2021-05-30 09:09 | Discharge Summary ---
Providers - Providers Date of Admission: 05/30/21 00:08 Attending physician: JESI DALY MD 05/29/21 22:18 Consult to Physician [CONS] Routine Comment: Dr. Rivera spoke with Dr. Triindad @ [phone] Consulting Provider: FELIX TRINIDAD Physician Instructions: Reason For Exam: ESRD needing dialysis, hyperkalemia 05/30/21 00:08 Consult to Dietitian/Nutrition [CONS] Routine Physician Instructions: Reason For Exam: Reason for Consult: Diet education Primary care physician: JOB PRESS OPERATOR Hospitalization Condition: Serious Exam - Constitutional Vitals: Temp Pulse Resp BP Pulse Ox 98.3 F 78 20 150/98 98 05/30/21 04:20 05/30/21 06:46 05/30/21 06:46 05/30/21 06:46 05/30/21 06:46 Plan Care Plan Goals: Please restart dialysis on your current schedule. Please follow CDC guidelines for isolation for COVID-19 infection. You have to self quarantine starting 5 days after your positive test (05/30/2021). You must continue to self quarantine as long as you have symptoms such as fever, shortness of breath, cough, sore throat etc. If you do not have any symptoms after self quarantining for 5 total days, you continue to must wear masks for the following 5 days when in contact with others or in public spaces. Follow up with: ADILENE LAW MD [Primary Care Provider] - 7 Days
[2021-05-30] MEDS: INSULIN LISPRO 100 UNIT/ML SUB-Q SCH ×4 (09:48→22:40)
[2021-05-30] MEDS ORDERED: SODIUM CHLORIDE 0.9% 100 ML IV PRN (10:00)
--- NOTE | 2021-05-30 10:23 | Consultation ---
History of Present Illness - Reason for Consult Consult date: 05/30/21 end stage renal disease, hyperkalemia - History of Present Illness The patient is a 71 year old female patient known to our practice with history significant for DM-2, HTN, Hyperlipidemia, Anemia and ESRD on hemodialysis (TTS) who presented to [facility] ED 05/29/21 with missed hemodialysis. Patient is a poor historian. Patient denies any complaint at this time. She was last dialyzed on 05/23/21. Labs reviewed. Potassium level was 6.5 on admission. She received urgent dialysis yesterday. Nephrology was consulted for ESRD management. Past History Past Medical History: diabetes, dialysis, ESRD, GERD, hypertension, stroke (2012) Past Surgical History: Other (eye surgery and partial hysterectomy) Social history: no significant social history Family history: no significant family history Medications and Allergies Allergies Allergy/AdvReac Type Severity Reaction Status Date / Time No Known Allergies Allergy Verified 05/23/13 22:50 Home Medications Medication Instructions Recorded Confirmed Last Taken Type Pantoprazole [Protonix TAB] 40 mg PO DAILY #30 tablet 07/15/13 05/22/21 1 Day Ago Rx ~02/20/21 carvediloL [Coreg] 25 mg PO BID #60 tablet 01/20/19 05/22/21 1 Day Ago Rx ~02/20/21 Travatan Z 0.004% 1 drop OU HS 01/27/20 05/22/21 1 Day Ago History ~02/20/21 Aspirin [Aspirin BABY CHEW TAB] 81 mg PO QDAY 02/25/21 05/22/21 02/20/21 History Simvastatin 20 mg PO QHS 02/25/21 05/22/21 02/20/21 History Apixaban [Eliquis] 5 mg PO BID #60 tablet 03/01/21 05/22/21 Unknown Rx Heparin [Heparin 10,000 Units/10 3,000 unit IV TIANNA PRN vial 03/01/21 05/22/21 Unknown Rx ml] Latanoprost 0.005% 1 drops OU QPM #1 bottle 03/01/21 05/22/21 Unknown Rx Docusate Sodium [Colace CAP] 100 mg PO BID #30 capsule 03/07/21 05/22/21 Unknown Rx Epoetin Johny-Epbx 10,000 Unit 10,000 unit SUB-Q TIANNA PRN vial 05/23/21 Unknown Rx [Retacrit] Active Meds: Active Medications Acetaminophen (Acetaminophen 325 Mg Tab) 650 mg PO Q4H PRN PRN Reason: Pain MILD(1-3)/Fever >100.5/RO Dextrose (Dextrose 10% *Hypoglycemia) 0 ml IV PRN PRN PRN Reason: Hypoglycemia Heparin Sodium (Porcine) (Heparin 10,000 Units/10 Ml Vial) 3,000 unit IV TIANNA PRN PRN Reason: hemodialysis Heparin Sodium (Porcine) (Heparin 5,000 Unit/1 Ml Vial) 5,000 unit SUB-Q Q8HR [facility] Sodium Chloride (Nacl 0.9%) 100 mls @ 999 mls/hr IV TIANNA PRN PRN Reason: Hypotension Insulin Human Lispro (Insulin Lispro 100 Unit/Ml) 0 unit SUB-Q ACHS [facility]; Protocol Last Admin: 05/30/21 09:48 Dose: 2 unit Magnesium Hydroxide (Magnesium Hydroxide (Mom) Oral Liqd Udc) 30 ml PO Q4H PRN PRN Reason: Constipation Morphine Sulfate (Morphine 2 Mg/1 Ml Inj) 2 mg IV Q4H PRN PRN Reason: Pain, Moderate (4-6) Morphine Sulfate (Morphine 4 Mg/1 Ml Inj) 4 mg IV Q4H PRN PRN Reason: Pain , Severe (7-10) Ondansetron HCl (Ondansetron 4 Mg/2 Ml Inj) 4 mg IV Q8H PRN PRN Reason: Nausea And Vomiting Sodium Chloride (Sodium Chloride 0.9% 10 Ml Flush Syringe) 10 ml IV BID [facility] Last Admin: 05/30/21 09:48 Dose: 10 ml Sodium Chloride (Sodium Chloride 0.9% 10 Ml Flush Syringe) 10 ml IV PRN PRN PRN Reason: LINE FLUSH Exam - Vital Signs Vital signs: Vital Signs Temp Pulse Resp BP Pulse Ox 98 F 90 18 170/88 99 05/29/21 20:20 05/29/21 20:20 05/29/21 20:20 05/29/21 20:20 05/29/21 20:20 Results - Lab Results 05/29/21 20:55 05/30/21 04:17 Most recent lab results Calcium 8.1 mg/dL (8.4-10.2) L 05/30/21 04:17 Assessment and Plan 1. ESRD: On maintenance hemodialysis, TTS schedule. Patient was last dialyzed on 05/23 during prior admission. Meds dosage based on GFR. Hemodialysis: 05/29. HD today. 2. FEN: Hyperkalemia, s/p HD. Monitor lytes and volume status. 3. DM-2: Lantus and SSI. 4. Hypertension: BP is controlled. Not on any meds. Monitor. Subjective: Patient was seen and examined at the bedside. Objective: General appearance: well-developed, appears stated age, no distress noted HEENT: ATNC, GRANT Neck: trachea midline Respiratory: ctab Heart: regular, S1S2, no murmur Gastrointestinal: soft, normoactive bowel sounds, not tender Integumentary: no rash, warm and dry Ext: no edema Neurologic: alert, able to move extremities Hemodialysis access: L arm AVG bruit heard
--- NOTE | 2021-05-30 13:27 | Electrocardiograph Report ---
[facility] Test Date: 2021-05-29 Test Time: 22:18:28 Pat Name: STALIN WEAVER Department: Room: A391 1 Gender: F Tone Regulator: NURSE : 1950 Requested By: JC WHALEN Order Number: [id number] Reading MD: Franklin Mckay Measurements Intervals [place] Rate: 79 P: 46 IN: 156 QRS: 54 QRSD: 69 T: 73 QT: 384 QTc: 440 Interpretive Statements Sinus rhythm Early repolarization J-point elevation No previous ECG available for comparison Electronically Signed On 05-30-2021 13:27:12 EST by Franklin Mckay
[2021-05-30] MEDS: HEPARIN 5,000 UNIT/1 ML VIAL SUB-Q SCH ×2 (14:26→21:26)
--- NOTE | 2021-05-30 14:56 | Event Note ---
Date: 05/30/21 Patient seen and examined today. Was at bedside eating breakfast. Per patient she missed 3 days of dialysis due to dialysis machine being broken at her nursing facility. Labs were reviewed. Potassium improved after hemodialysis. Patient medically clear for discharge once facility re-accepts.
[2021-05-31] MEDS: HEPARIN 5,000 UNIT/1 ML VIAL SUB-Q SCH (05:55)
[2021-05-31] MEDS: INSULIN LISPRO 100 UNIT/ML SUB-Q SCH ×2 (08:06→12:44)
--- NOTE | 2021-05-31 08:47 | Progress Note ---
Assessment and Plan 1. ESRD: On maintenance hemodialysis, TTS schedule. Patient was last dialyzed on 05/23 during prior admission. Meds dosage based on GFR. Hemodialysis: 05/29, 05/30. 2. FEN: Hyperkalemia, improved with HD. Monitor lytes and volume status. 3. DM-2: Lantus and SSI. 4. H/o Hypertension: BP controlled. Not on any meds. Monitor. 5. Covid-19. Subjective: Patient was seen and examined at the bedside. Objective: General appearance: well-developed, appears stated age, no distress noted HEENT: ATNC, GRANT Neck: trachea midline Respiratory: ctab Heart: regular, S1S2, no murmur Gastrointestinal: soft, normoactive bowel sounds, not tender Integumentary: no rash, warm and dry Ext: no edema Neurologic: alert, able to move extremities Hemodialysis access: L arm AVG bruit heard Subjective Date of service: 05/31/21 Objective - Vital Signs Vital signs: Vital Signs - 12hr 05/30/21 05/31/21 21:50 01:00 Temperature 98.0 F Pulse Rate 98 H Respiratory 16 Rate Blood Pressure 137/111 O2 Sat by Pulse 98 94 Oximetry - Lab 05/29/21 20:55 05/30/21 04:17 Most recent lab results Calcium 8.1 mg/dL (8.4-10.2) L 05/30/21 04:17 Medications & Allergies - Medications Allergies/Adverse Reactions: Allergies No Known Allergies Allergy (Verified 05/23/13 22:50) Home Medications: Home Medications Medication Instructions Recorded Confirmed Last Taken Type carvediloL [Coreg] 25 mg PO BID #60 tablet 01/20/19 05/31/21 1 Day Ago Rx ~02/20/21 Aspirin [Aspirin BABY CHEW TAB] 81 mg PO QDAY 02/25/21 05/31/21 02/20/21 History Apixaban [Eliquis] 5 mg PO BID #60 tablet 03/01/21 05/31/21 Unknown Rx Latanoprost 0.005% 1 drops OU QPM #1 bottle 03/01/21 05/31/21 Unknown Rx Docusate Sodium [Colace CAP] 100 mg PO BID #30 capsule 03/07/21 05/31/21 Unknown Rx AtorvaSTATin 10 mg PO QHS 05/31/21 05/31/21 Unknown History Cholecalciferol (Vitamin D3) 50,000 unit PO QWEEK 05/31/21 05/31/21 Unknown History [Vitamin D3 50,000UNIT CAP] Insulin Glargine,Hum.rec.anlog 5 unit SQ QHS 05/31/21 05/31/21 Unknown History [Semglee] Insulin Lispro [Admelog] 0 unit SQ ACHS 05/31/21 05/31/21 Unknown History Olmesartan (Nf) [Benicar] 20 mg PO QDAY 05/31/21 05/31/21 Unknown History Omeprazole Magnesium [PriLOSEC Otc] 40 mg PO QAM 05/31/21 05/31/21 Unknown History Travoprost (Nf) [Travatan Z 0.004%] 1 drop OU QHS 05/31/21 05/31/21 Unknown History amLODIPine 10 mg PO DAILY 05/31/21 05/31/21 Unknown History Active Medications: Generic Name Dose Route Start Last Admin Trade Name Freq PRN Reason Stop Dose Admin Acetaminophen 650 mg 05/30/21 00:05 Acetaminophen 325 Mg Tab PO Q4H PRN Pain MILD(1-3)/Fever >100.5/RO Dextrose 0 ml 05/30/21 00:20 Dextrose 10% *Hypoglycemia IV PRN PRN Hypoglycemia Heparin Sodium (Porcine) 3,000 unit 05/29/21 22:18 Heparin 10,000 Units/10 Ml Vial IV TIANNA PRN hemodialysis Heparin Sodium (Porcine) 5,000 unit 05/30/21 14:00 05/31/21 05:55 Heparin 5,000 Unit/1 Ml Vial SUB-Q 5,000 unit Q8HR MUNIRA Administration Sodium Chloride 100 mls @ 999 mls/hr 05/30/21 10:00 Nacl 0.9% IV TIANNA PRN Hypotension Insulin Human Lispro 0 unit 05/30/21 07:30 05/31/21 08:06 Insulin Lispro 100 Unit/Ml SUB-Q Not Given ACHS MUNIRA Protocol Magnesium Hydroxide 30 ml 05/30/21 00:05 Magnesium Hydroxide (Mom) Oral Liqd Udc PO Q4H PRN Constipation Morphine Sulfate 2 mg 05/30/21 00:05 Morphine 2 Mg/1 Ml Inj IV Q4H PRN Pain, Moderate (4-6) Morphine Sulfate 4 mg 05/30/21 00:05 Morphine 4 Mg/1 Ml Inj IV Q4H PRN Pain , Severe (7-10) Ondansetron HCl 4 mg 05/30/21 00:05 Ondansetron 4 Mg/2 Ml Inj IV Q8H PRN Nausea And Vomiting Sodium Chloride 10 ml 05/30/21 10:00 05/30/21 22:56 Sodium Chloride 0.9% 10 Ml Flush Syringe IV 10 ml BID MUNIRA Administration Sodium Chloride 10 ml 05/30/21 00:05 Sodium Chloride 0.9% 10 Ml Flush Syringe IV PRN PRN LINE FLUSH
[2021-05-31 13:47] VITALS: BP 132/71
== END 2021-05-31 13:56 ==
LOC: ED 20:07 → 3A 05-30 00:08 → INTOOBSV 05-30 00:08 → 3A 05-30 00:56
PROVIDERS: ADMIT Internal Medicine Geriatric Medicine; ATTEND Student in an Organized Health Care Education/Training Program
DX: U07.1 COVID-19 (principal); I12.0 Hypertensive chronic kidney disease with stage 5 chronic kidney disease or end stage renal disease; N18.6 End stage renal disease; E11.22 Type 2 diabetes mellitus with diabetic chronic kidney disease; K21.9 Gastro-esophageal reflux disease without esophagitis; E87.5 Hyperkalemia; Z99.2 Dependence on renal dialysis; Z86.73 Personal history of transient ischemic attack (TIA), and cerebral infarction without residual deficits; Z79.899 Other long term (current) drug therapy; Z98.890 Other specified postprocedural states; Z79.82 Long term (current) use of aspirin; Z79.4 Long term (current) use of insulin
CPT/HCPCS: 36415; 71045; 80048; 82962; 85025; 93005; 93010; 96372; 97162; 99285; G0257; G0378; J0610; J1644; U0003; Q9967; J1815